=== PATIENT | male | born 1955 | race Two or more races ===

== ENCOUNTER 2016-07-21 13:25 | Inpatient (IN) | payer OTHER ==
[~2016-07-21] VITALS: Ht 172.7 cm; Wt 90.7 kg
[2016-07-21 13:26] VITALS: BP 152/94
[2016-07-21] MEDS ORDERED: LORazepam Inj 2mg/ml 1ml IV ONE (13:30)
[2016-07-21 13:53] LABS: MEAN CORPUSCULAR HEMOGLOBIN 31.2 PG (27.0-31.0); MEAN CORPUSCULAR HGB CONC 34.3 G/DL (32.0-36.0); MEAN CORPUSCULAR VOLUME 91 FL (80-99); MEAN PLATELET VOLUME 13.8 FL (6.5-10.1); PLATELET COUNT 85 K/UL (150-450); RED BLOOD COUNT 4.58 M/UL (4.70-6.10); RED CELL DISTRIBUTION WIDTH 11.1 % (11.6-14.8); WHITE BLOOD COUNT 7.5 K/UL (4.8-10.8)
[2016-07-21 14:06] LABS: INR 1.1 (0.9-1.1); PROTHROMBIN TIME 11.1 SEC (9.30-11.50)
[2016-07-21 14:10] LABS: TROPONIN I < 0.30 ng/mL (<=0.30)
[2016-07-21 14:13] LABS: ALANINE AMINOTRANSFERASE 47 U/L (3-41); ALBUMIN/GLOBULIN RATIO 1.1 (1.0-2.7); ANION GAP 18 (5-15); ASPARTATE AMINO TRANSFERASE 54 U/L (5-40); CARBON DIOXIDE 27 mEQ/L (20-30); CHLORIDE 95 mEQ/L (98-107); CREATININE 1.5 mg/dL (0.7-1.2); GLOMERULAR FILTRATION RATE 47.4 mL/min (>60); HEMOLYSIS 5; MAGNESIUM 1.7 mg/dL (1.7-2.5); POTASSIUM 4.6 mEQ/L (3.4-4.9); SODIUM 140 mEQ/L (135-145); TOTAL PROTEIN 6.8 g/dL (6.6-8.7)
[2016-07-21 14:24] LABS: BAND NEUTROPHILS % (MANUAL) 6 % (0-8); BASOPHILS % (MANUAL) 0 % (0-2); CKMB < 1.5 ng/mL (< 6.7); EOSINOPHILS % (MANUAL) 0 % (0-3); LYMPHOCYTES % (MANUAL) 11 % (20-45); NEUTROPHILS % (MANUAL) 79 % (45-75); PLATELET ESTIMATE DECREASED; TOTAL CELLS COUNTED 100
[2016-07-21 14:25] LABS: REFLEX LACTIC ACID YES OR NO YES
[2016-07-21] MEDS ORDERED: Ampicillin/Sulbactam Sod 3 GM in NS 110 ML IVPB ONE (15:00)
[2016-07-21 15:19] VITALS: BP 143/69
[2016-07-21 15:26] LABS: APPEARANCE,URINE CLEAR; KETONES,URINE 2+ (NEGATIVE); LEUKOCYTE ESTERASE ,URINE NEGATIVE (NEGATIVE); NITRITE,URINE NEGATIVE (NEGATIVE); PH,URINE 5 (4.5-8.0); PROTEIN,URINE NEGATIVE (NEGATIVE); UROBILINOGEN,URINE NORMAL MG/DL (0.0-1.0)
--- NOTE | 2016-07-21 16:03 | Emergency Room Report ---
History of Present Illness General Chief Complaint: General Complaint Source: Patient Present Illness HPI Patient is a 60-year-old male presented after having increased fever and shakiness. The patient had gradual onset of symptoms over the past 2 days. Patient denied any cough. He reported having some low back pain. He reports having some difficulty with urination. Patient had prior history of diabetes which is not being treated currently. Patient previously been on psychiatric medications. He does not drink alcohol. Allergies: Coded Allergies: No Known Allergies (Unverified , 07/21/16) Patient History Past Medical History: see triage record, psych hx Reviewed Nursing Documentation: PMH: Agreed, PSxH: Agreed Nursing Documentation-PMH Past Medical History: No History, Except For Hx Diabetes: Yes Review of Systems All Other Systems: negative except mentioned in HPI Physical Exam Vital Signs Date Time Temp Pulse Resp B/P Pulse Ox O2 Delivery O2 Flow Rate FiO2 07/21/16 13:18 98.4 55 16 142/97 97 Room Air Sp02 EP Interpretation: reviewed, normal General Appearance: normal inspection, well appearing, no apparent distress, alert Head: atraumatic ENT: normal ENT inspection, hearing grossly normal, normal voice Neck: normal inspection, full range of motion, supple, no bony tend Respiratory: normal inspection, lungs clear, normal breath sounds, no respiratory distress, no retraction, no wheezing Cardiovascular #1: regular rate, rhythm, no edema Gastrointestinal: normal inspection, normal bowel sounds, non tender, soft, no guarding, no hernia Genitourinary: no CVA tenderness Musculoskeletal: normal inspection, back normal, normal range of motion Neurologic: normal inspection, alert, oriented x3, responsive, board setter III-XII nml as tested, speech normal, motor weakness, other - tremor, pill rolling Psychiatric: normal inspection, judgement/insight normal, mood/affect normal Skin: normal inspection, normal color, no rash Medical Decision Making Diagnostic Impression: Primary Impression: Severe sepsis Additional Impressions: Dehydration UTI (urinary tract infection) Uncontrolled diabetes mellitus ER Course The patient presented for generalized weakness as well as fever. Differential diagnoses included was not limited to pneumonia, abscess, urinary tract infection, appendicitis among others.Because of complexity of patient's case laboratory testing and imaging studies were ordered. The patient was noted to have elevated white blood count as well as elevated lactic acid level. Patient noted be febrile in the emergency department. Patient was given IV antibiotics. Patient was noted to have some improvement in tachycardia after IV fluids the EKG interpreted by me showed normal sinus rhythm with a rate of [address] or T wave changes. Dr. Jose Enrique Brown was contacted for inpatient management. Labs Test 07/21/16 13:30 07/21/16 15:00 White Blood Count 7.5 K/UL (4.8-10.8) Red Blood Count 4.58 M/UL (4.70-6.10) Hemoglobin 14.3 G/DL (14.2-18.0) Hematocrit 41.6 % (42.0-52.0) Mean Corpuscular Volume 91 FL (80-99) Mean Corpuscular Hemoglobin 31.2 PG (27.0-31.0) Mean Corpuscular Hemoglobin Concent 34.3 G/DL (32.0-36.0) Red Cell Distribution Width 11.1 % (11.6-14.8) Platelet Count 85 K/UL (150-450) Mean Platelet Volume 13.8 FL (6.5-10.1) Neutrophils (%) (Auto) % (45.0-75.0) Lymphocytes (%) (Auto) % (20.0-45.0) Monocytes (%) (Auto) % (1.0-10.0) Eosinophils (%) (Auto) % (0.0-3.0) Basophils (%) (Auto) % (0.0-2.0) Differential Total Cells Counted 100 Neutrophils % (Manual) 79 % (45-75) Lymphocytes % (Manual) 11 % (20-45) Monocytes % (Manual) 4 % (1-10) Eosinophils % (Manual) 0 % (0-3) Basophils % (Manual) 0 % (0-2) Band Neutrophils 6 % (0-8) Platelet Estimate Decreased Platelet Morphology Giant Platelets Occasional Red Blood Cell Morphology Normal Anisocytosis Prothrombin Time 11.1 SEC (9.30-11.50) Prothromb Time International Ratio 1.1 (0.9-1.1) Activated Partial Thromboplast Time 28 SEC (23-33) Sodium Level 140 mEQ/L (135-145) Potassium Level 4.6 mEQ/L (3.4-4.9) Chloride Level 95 mEQ/L (98-107) Carbon Dioxide Level 27 mEQ/L (20-30) Anion Gap 18 (5-15) Blood Urea Nitrogen 31 mg/dL (7-23) Creatinine 1.5 mg/dL (0.7-1.2) Estimat Glomerular Filtration Rate 47.4 mL/min (>60) Glucose Level 424 mg/dL (74-106) Lactic Acid Level 4.30 mmol/L (0.66-2.22) Calcium Level 9.0 mg/dL (8.6-10.2) Magnesium Level 1.7 mg/dL (1.7-2.5) Total Bilirubin 0.7 mg/dL (0.0-1.2) Aspartate Amino Transf (AST/SGOT) 54 U/L (5-40) Alanine Aminotransferase (ALT/SGPT) 47 U/L (3-41) Alkaline Phosphatase 60 U/L (40-129) Total Creatine Kinase 126 U/L (38-174) Creatine Kinase MB < 1.5 ng/mL (< 6.7) Creatine Kinase MB Relative Index 1.1 Troponin I < 0.30 ng/mL (<=0.30) Pro-B-Type Natriuretic Peptide 220 pg/mL (0-125) Total Protein 6.8 g/dL (6.6-8.7) Albumin 3.7 g/dL (3.5-5.2) Globulin 3.1 g/dL Albumin/Globulin Ratio 1.1 (1.0-2.7) Urine Color Pale yellow Urine Appearance Clear Urine pH 5 (4.5-8.0) Urine Specific [place] 1.020 (1.005-1.035) Urine Protein Negative (NEGATIVE) Urine Glucose (UA) 4+ (NEGATIVE) Urine Ketones 2+ (NEGATIVE) Urine Occult Blood Negative (NEGATIVE) Urine Nitrite Negative (NEGATIVE) Urine Bilirubin Negative (NEGATIVE) Urine Urobilinogen Normal MG/DL (0.0-1.0) Urine Leukocyte Esterase Negative (NEGATIVE) EKG Diagnostic Results Rate: normal - 78 Rhythm: NSR ST Segments: no acute changes Rhythm Strip Diag. Results EP Interpretation: yes Rhythm: NSR - 78, no PVC's, no ectopy Last Vital Signs Date Time Temp Pulse Resp B/P Pulse Ox O2 Delivery O2 Flow Rate FiO2 07/21/16 15:19 101.2 102 29 143/69 97 Room Air Status: unchanged Disposition: ADMITTED INPATIENT Condition: Serious Referrals: [facility],REFERRING (PCP) Juan Manuel Moore Jul 21, 2016 16:02
[2016-07-21] MEDS ORDERED: Unasyn 3gm Inj ONE (17:13)
[2016-07-21 18:10] VITALS: BP 144/70
[2016-07-21] MEDS ORDERED: NKM (19:25)
[2016-07-21] MEDS ORDERED: Morphine Sulfate 4mg/ml Inj IVP PRN (21:45)
[2016-07-21] MEDS ORDERED: Morphine Sulfate 2mg/ml Inj IVP PRN (21:45)
--- NOTE | 2016-07-21 21:53 | History & Physical ---
History and Physical History & Physicial H&P dictated # [id number] VIRGINIA MITCHELL M.D. Jul 21, 2016 21:53
[2016-07-21] MEDS ORDERED: Nitroglycerin Subl 0.4mg tab (Bottle Of 25) SL PRN (22:00)
[2016-07-21] MEDS ORDERED: Miralax 17gm pkt ORAL PRN (22:00)
[2016-07-21] MEDS ORDERED: DuoNeb 0.5-3(2.5)mg/3ml neb HHN PRN (22:00)
[2016-07-21 22:02] VITALS: BP 137/74
[2016-07-22] MEDS: Morphine Sulfate 2mg/ml Inj IVP PRN ×2 (00:20→14:37)
[2016-07-22] MEDS ORDERED: Vancomycin 1gm inj IVPB ONE (00:26)
[2016-07-22 00:27] VITALS: BP 144/77
[2016-07-22] MEDS: Vancomycin 1 GM in D5W 275 ML IVPB SCH (01:10)
--- NOTE | 2016-07-22 02:48 | History and Physical Report ---
DATE OF ADMISSION: 07/21/2016 HISTORY OF PRESENT ILLNESS: This is a 60-year-old male with history of diabetes, who was not on any medications for one year, who was brought in by ambulance for tremors and fevers. The patient had a fever of 102. Blood sugar en route was 336. Upon arrival, he had a fever of 101.2. He states he has not been feeling well since yesterday. He has had chills and fevers. He also had a fall on his hands and complains of hand pain. He complains of weakness and fatigue. He also reports a cough, but denies shortness of breath. He denies chest pain. PAST MEDICAL HISTORY: Includes diabetes. PAST SURGICAL HISTORY: None. MEDICATIONS: The patient is not taking any medications. ALLERGIES: No known drug allergies. SOCIAL HISTORY: The patient does not smoke, drink alcohol, or use any drugs. He is for disability. REVIEW OF SYSTEMS: A 12-point review of systems is negative except for pertinent positives mentioned above. PHYSICAL EXAMINATION: VITAL SIGNS: Temperature 98.4, pulse is 55, respiratory rate 16, blood pressure 142/97, and O2 saturation is 97% on room air. GENERAL: No acute distress. The patient is awake, alert, and oriented x3. He is [place]an-speaking. HEENT: Normocephalic/atraumatic. Mouth, the patient has dry oral mucous membranes. NECK: Supple. No JVD. LUNGS: Clear to auscultation bilaterally. No crackles, rhonchi, or rales. CARDIOVASCULAR: Regular rate and rhythm. Normal S1 and S2. ABDOMEN: Soft, nontender, and nondistended. EXTREMITIES: No clubbing, cyanosis, or edema. There are dark skin lesions over his legs likely from diabetes. SKIN: The patient has skin lesions over his legs likely ; however, there are no other rashes. NEUROLOGIC: The patient is awake and can move all extremities. LABORATORY DATA: CBC - white count 7.5, hemoglobin 14.3, and platelet count 85,000. BMP - sodium 140, potassium 4.6, chloride 95, CO2 27, BUN 31, and creatinine 1.5. Lactic acid 4.3. Glucose 424. LFTs are within normal limits. Albumin 2.7. UA is negative. Chest x-ray shows no clear infiltrate. EKG shows normal sinus rhythm at 78. No PVCs. No ectopy. No ST changes. ASSESSMENT: 1. Upper respiratory infection - likely viral. 2. Uncontrolled diabetes without diabetic ketoacidosis. 3. Acute versus chronic kidney disease. 4. Thrombocytopenia. PLAN: 1. Admit the patient to Med/Surg unit. 2. Pulmonary consult with Dr. Obrien. 3. Intravenous fluids. 4. Check for flu. 5. Avoid nephrotoxic agents. 6. Regular insulin sliding scale. Jose Enrique Brown MD DR: CIARA JOB#: [id number] CC:
[2016-07-22 04:14] VITALS: BP 144/73
[2016-07-22] MEDS: NovoLOG Insulin Flexpen SUBQ SCH ×4 (05:50→20:23)
[2016-07-22] MEDS ORDERED: NovoLOG Insulin Flexpen SUBQ SCH (06:30)
[2016-07-22 07:13] LABS: MEAN CORPUSCULAR HEMOGLOBIN 31.8 PG (27.0-31.0); MEAN CORPUSCULAR VOLUME 91 FL (80-99); MEAN PLATELET VOLUME 13.5 FL (6.5-10.1); PLATELET COUNT 65 K/UL (150-450); RED BLOOD COUNT 4.01 M/UL (4.70-6.10); RED CELL DISTRIBUTION WIDTH 11.1 % (11.6-14.8); WHITE BLOOD COUNT 7.1 K/UL (4.8-10.8)
[2016-07-22 08:00] VITALS: BP 116/63
[2016-07-22 08:01] LABS: ALANINE AMINOTRANSFERASE 36 U/L (3-41); ALBUMIN/GLOBULIN RATIO 1.1 (1.0-2.7); ANION GAP 17 (5-15); ASPARTATE AMINO TRANSFERASE 42 U/L (5-40); CALCIUM 8.2 mg/dL (8.6-10.2); CARBON DIOXIDE 23 mEQ/L (20-30); CHLORIDE 98 mEQ/L (98-107); CREATININE 1.2 mg/dL (0.7-1.2); GLOMERULAR FILTRATION RATE > 60 mL/min (>60); HEMOLYSIS 7; MAGNESIUM 1.4 mg/dL (1.7-2.5); PHOSPHORUS 1.9 mg/dL (2.5-4.8); POTASSIUM 3.9 mEQ/L (3.4-4.9); SODIUM 138 mEQ/L (135-145); TOTAL PROTEIN 5.9 g/dL (6.6-8.7); URIC ACID 7.8 mg/dL (3.0-7.5)
[2016-07-22] MEDS ORDERED: Heparin 5000 units/ml inj SUBQ SCH ×2 (09:00)
[2016-07-22] MEDS: Cefepime HCl 2 GM in D5W 110 ML IV SCH ×2 (09:32→20:15)
[2016-07-22 09:35] LABS: APPEARANCE,URINE CLEAR; KETONES,URINE 3+ (NEGATIVE); LEUKOCYTE ESTERASE ,URINE NEGATIVE (NEGATIVE); NITRITE,URINE NEGATIVE (NEGATIVE); PH,URINE 6 (4.5-8.0); PROTEIN,URINE 1+ (NEGATIVE); UROBILINOGEN,URINE 1 MG/DL (0.0-1.0)
--- NOTE | 2016-07-22 09:40 | Diagnostic Imaging Report ---
Indication: SOB Technique: One view of the chest Comparison: none Findings: Lungs and pleural spaces are clear. Heart size is normal Impression: No acute process
[2016-07-22 10:17] LABS: BACTERIA,URINE OCCASIONAL /HPF; SQUAMOUS EPITHELIAL CELL,UR OCCASIONAL /LPF (NONE/OCC); WBC,URINE 0-2 /HPF (0 - 0)
[2016-07-22 10:39] LABS: BAND NEUTROPHILS % (MANUAL) 6 % (0-8); LYMPHOCYTES % (MANUAL) 8 % (20-45); NEUTROPHILS % (MANUAL) 82 % (45-75); TOTAL CELLS COUNTED 100
[2016-07-22 10:40] LABS: BASOPHILS % (MANUAL) 0 % (0-2); EOSINOPHILS % (MANUAL) 0 % (0-3); PLATELET ESTIMATE DECREASED; PLATELET MORPHOLOGY NORMAL
--- NOTE | 2016-07-22 11:19 | General Progress Note ---
Assessment/Plan Status: stable Assessment/Plan 1. Upper respiratory infection - likely viral. 2. Uncontrolled diabetes without diabetic ketoacidosis. 3. Acute versus chronic kidney disease. 4. Thrombocytopenia. 5. Acute Anemia 6. GI-DVT prophylaxia Plan: stool occult blood Hem consult Endo consult daily labs change of Attending to Dr Hartley, Per Dr Cosme request Subjective ROS Limited/Unobtainable: No Constitutional: Reports: no symptoms HEENT: Reports: no symptoms Cardiovascular: Reports: no symptoms Respiratory: Reports: no symptoms Allergies: Coded Allergies: No Known Allergies (Unverified , 07/21/16) Objective Last 24 Hour Vital Signs Date Time Temp Pulse Resp B/P Pulse Ox O2 Delivery O2 Flow Rate FiO2 07/22/16 08:00 75 07/22/16 08:00 98.2 75 19 116/63 95 Room Air 07/22/16 04:31 100.3 07/22/16 04:14 103.6 90 22 144/73 98 Room Air 07/22/16 04:00 93 07/22/16 00:27 99.5 70 20 144/77 95 Room Air 07/22/16 00:00 76 07/21/16 22:09 99.6 84 15 137/74 97 Room Air 07/21/16 22:02 99.6 84 15 137/74 97 Room Air 07/21/16 18:10 99.8 81 16 144/70 95 Room Air 07/21/16 15:19 101.2 102 29 143/69 97 Room Air 07/21/16 13:26 98.4 84 20 152/94 97 Room Air 07/21/16 13:18 98.4 55 16 142/97 97 Room Air Intake and Output 07/21/16 07/22/16 19:00 07:00 Intake Total 2230 ml 366.6 ml Output Total 2300 ml Balance 2230 ml -1933.4 ml Intake Oral 120 ml IV Total 2110 ml 366.6 ml Output Urine Total 2300 ml # Voids 1 Laboratory Tests 07/21/16 13:30: White Blood Count 7.5, Red Blood Count 4.58L, Hemoglobin 14.3, Hematocrit 41.6L , Mean Corpuscular Volume 91, Mean Corpuscular Hemoglobin 31.2H, Mean Corpuscular Hemoglobin Concent 34.3, Red Cell Distribution Width 11.1L, Platelet Count 85L, Mean Platelet Volume 13.8H, Neutrophils (%) (Auto) , Lymphocytes (%) (Auto) , Monocytes (%) (Auto) , Eosinophils (%) (Auto) , Basophils (%) (Auto) , Differential Total Cells Counted 100, Neutrophils % ( Manual) 79H, Lymphocytes % (Manual) 11L, Monocytes % (Manual) 4, Eosinophils % ( Manual) 0, Basophils % (Manual) 0, Band Neutrophils 6, Platelet Estimate DecreasedL, Platelet Morphology , Giant Platelets Occasional, Red Blood Cell Morphology Normal, Anisocytosis , Prothrombin Time 11.1, Prothromb Time International Ratio 1.1, Activated Partial Thromboplast Time 28, Sodium Level 140, Potassium Level 4.6, Chloride Level 95L, Carbon Dioxide Level 27, Anion Gap 18H, Blood Urea Nitrogen 31H, Creatinine 1.5H, Estimat Glomerular Filtration Rate 47.4, Glucose Level 424H, Hemoglobin A1c 13.3H, Lactic Acid Level 4.30H, Calcium Level 9.0, Magnesium Level 1.7, Total Bilirubin 0.7, Aspartate Amino Transf (AST/SGOT) 54H, Alanine Aminotransferase (ALT/SGPT) 47H, Alkaline Phosphatase 60, Total Creatine Kinase 126, Creatine Kinase MB < 1.5, Creatine Kinase MB Relative Index 1.1, Troponin I < 0.30, Pro-B-Type Natriuretic Peptide 220H, Total Protein 6.8, Albumin 3.7, Globulin 3.1, Albumin/ Globulin Ratio 1.1 07/21/16 15:00: Urine Color Pale yellow, Urine Appearance Clear, Urine pH 5, Urine Specific [place] 1.020, Urine Protein Negative, Urine Glucose (UA) 4+H, Urine Ketones 2+H , Urine Occult Blood Negative, Urine Nitrite Negative, Urine Bilirubin Negative , Urine Urobilinogen Normal, Urine Leukocyte Esterase Negative 07/21/16 17:12: Lactic Acid Level 2.10 07/22/16 04:50: White Blood Count 7.1, Red Blood Count 4.01L, Hemoglobin 12.7L, Hematocrit 36.4L , Mean Corpuscular Volume 91, Mean Corpuscular Hemoglobin 31.8H, Mean Corpuscular Hemoglobin Concent 35.0, Red Cell Distribution Width 11.1L, Platelet Count 65L, Mean Platelet Volume 13.5H, Neutrophils (%) (Auto) , Lymphocytes (%) (Auto) , Monocytes (%) (Auto) , Eosinophils (%) (Auto) , Basophils (%) (Auto) , Differential Total Cells Counted 100, Neutrophils % ( Manual) 82H, Lymphocytes % (Manual) 8L, Monocytes % (Manual) 4, Eosinophils % ( Manual) 0, Basophils % (Manual) 0, Band Neutrophils 6, Platelet Estimate DecreasedL, Platelet Morphology Normal, Red Blood Cell Morphology Normal, Sodium Level 138, Potassium Level 3.9, Chloride Level 98, Carbon Dioxide Level 23, Anion Gap 17H, Blood Urea Nitrogen 25H, Creatinine 1.2, Estimat Glomerular Filtration Rate > 60, Glucose Level 318#H, Calcium Level 8.2L, Magnesium Level 1.4L, Total Bilirubin 0.8, Aspartate Amino Transf (AST/SGOT) 42H, Alanine Aminotransferase (ALT/SGPT) 36, Alkaline Phosphatase 73, Total Creatine Kinase 166, Total Protein 5.9L, Albumin 3.2L, Globulin 2.7, Albumin/Globulin Ratio 1.1 , Plasma/Serum Osmolality [Pending], Uric Acid 7.8H, Phosphorus Level 1.9L, Free Thyroxine 1.10 07/22/16 05:30: Urine Color Yellow, Urine Appearance Clear, Urine pH 6, Urine Specific [place] 1.015, Urine Protein 1+H, Urine Glucose (UA) 4+H, Urine Ketones 3+H, Urine Occult Blood 2+H, Urine Nitrite Negative, Urine Bilirubin Negative, Urine Urobilinogen 1H, Urine Leukocyte Esterase Negative, Urine RBC 2-4H, Urine WBC 0- 2, Urine Squamous Epithelial Cells Occasional, Urine Bacteria Occasional, Urine Eosinophils None seen, Urine Osmolality [Pending], Urine Random Sodium 100, Urine Random Chloride 102, Urine Potassium Timed 71 Height (Feet): 5 Height (Inches): 8.00 Weight (Pounds): 200 General Appearance: no apparent distress EENT: PERRL/EOMI Neck: supple Cardiovascular: normal rate Respiratory/Chest: rhonchi - bilaterally Abdomen: soft Extremities: non-tender Neurologic: oriented x 3 Nolvia Hartley MD Jul 22, 2016 11:19
[2016-07-22 11:54] LABS: HEMOLYSIS 5; IRON 16 ug/dL (59-158); TOTAL IRON BINDING CAPACITY 165 ug/dL (250-400)
[2016-07-22 12:00] VITALS: BP 136/75
--- NOTE | 2016-07-22 15:42 | Consultation ---
History of Present Illness General Date patient seen: Jul 22, 2016 Chief Complaint: General Complaint Reason for Consultation: dyspnea Present Illness HPI 60-year-old male presented after having increased fever and shakiness. He reported having some low back pain. He also had some difficulty with urination. Patient had prior history of diabetes which is not being treated currently. Patient previously been on psychiatric medications. He was diagnosed to have sepsis and uncontrolled DM and admitted for further evaluation. Allergies: Coded Allergies: No Known Allergies (Unverified , 07/21/16) Medication History Scheduled No Known Medications* (NKM - No Known Medications*), 0 ., (Reported) Patient History Healthcare decision maker pt alert and oriented Resuscitation status Full Code Advanced Directive on File Past Medical/Surgical History Past Medical/Surgical History: (1) Diabetes mellitus Review of Systems All Other Systems: negative except mentioned in HPI Physical Exam General Appearance: WD/WN Lines, tubes and drains: peripheral, central line, trach HEENT: normocephalic, atraumatic Neck: non-tender, normal alignment Respiratory/Chest: chest wall non-tender, lungs clear Cardiovascular/Chest: normal peripheral pulses, normal rate Abdomen: normal bowel sounds, soft Last 24 Hour Vital Signs Date Time Temp Pulse Resp B/P Pulse Ox O2 Delivery O2 Flow Rate FiO2 07/22/16 12:00 68 07/22/16 12:00 98.1 71 20 136/75 98 Room Air 07/22/16 08:00 75 07/22/16 08:00 98.2 75 19 116/63 95 Room Air 07/22/16 04:31 100.3 07/22/16 04:14 103.6 90 22 144/73 98 Room Air 07/22/16 04:00 93 07/22/16 00:27 99.5 70 20 144/77 95 Room Air 07/22/16 00:00 76 07/21/16 22:09 99.6 84 15 137/74 97 Room Air 07/21/16 22:02 99.6 84 15 137/74 97 Room Air 07/21/16 18:10 99.8 81 16 144/70 95 Room Air Intake and Output 07/21/16 07/22/16 19:00 07:00 Intake Total 2230 ml 366.6 ml Output Total 2300 ml Balance 2230 ml -1933.4 ml Intake Oral 120 ml IV Total 2110 ml 366.6 ml Output Urine Total 2300 ml # Voids 1 Laboratory Tests Test 07/21/16 17:12 07/22/16 04:50 07/22/16 05:30 Lactic Acid Level 2.10 mmol/L (0.66-2.22) White Blood Count 7.1 K/UL (4.8-10.8) Red Blood Count 4.01 M/UL (4.70-6.10) L Hemoglobin 12.7 G/DL (14.2-18.0) L Hematocrit 36.4 % (42.0-52.0) L Mean Corpuscular Volume 91 FL (80-99) Mean Corpuscular Hemoglobin 31.8 PG (27.0-31.0) H Mean Corpuscular Hemoglobin Concent 35.0 G/DL (32.0-36.0) Red Cell Distribution Width 11.1 % (11.6-14.8) L Platelet Count 65 K/UL (150-450) L Mean Platelet Volume 13.5 FL (6.5-10.1) H Neutrophils (%) (Auto) % (45.0-75.0) Lymphocytes (%) (Auto) % (20.0-45.0) Monocytes (%) (Auto) % (1.0-10.0) Eosinophils (%) (Auto) % (0.0-3.0) Basophils (%) (Auto) % (0.0-2.0) Differential Total Cells Counted 100 Neutrophils % (Manual) 82 % (45-75) H Lymphocytes % (Manual) 8 % (20-45) L Monocytes % (Manual) 4 % (1-10) Eosinophils % (Manual) 0 % (0-3) Basophils % (Manual) 0 % (0-2) Band Neutrophils 6 % (0-8) Platelet Estimate Decreased L Platelet Morphology Normal Red Blood Cell Morphology Normal Sodium Level 138 mEQ/L (135-145) Potassium Level 3.9 mEQ/L (3.4-4.9) Chloride Level 98 mEQ/L (98-107) Carbon Dioxide Level 23 mEQ/L (20-30) Anion Gap 17 (5-15) H Blood Urea Nitrogen 25 mg/dL (7-23) H Creatinine 1.2 mg/dL (0.7-1.2) Estimat Glomerular Filtration Rate > 60 mL/min (>60) Glucose Level 318 mg/dL (74-106) #H Plasma/Serum Osmolality Pending Uric Acid 7.8 mg/dL (3.0-7.5) H Calcium Level 8.2 mg/dL (8.6-10.2) L Phosphorus Level 1.9 mg/dL (2.5-4.8) L Magnesium Level 1.4 mg/dL (1.7-2.5) L Iron Level 16 ug/dL (59-158) L Total Iron Binding Capacity 165 ug/dL (250-400) L Percent Iron Saturation 10 % (15-50) L Unsaturated Iron Binding 149 ug/dL (112-346) Total Bilirubin 0.8 mg/dL (0.0-1.2) Aspartate Amino Transf (AST/SGOT) 42 U/L (5-40) H Alanine Aminotransferase (ALT/SGPT) 36 U/L (3-41) Alkaline Phosphatase 73 U/L (40-129) Total Creatine Kinase 166 U/L (38-174) Total Protein 5.9 g/dL (6.6-8.7) L Albumin 3.2 g/dL (3.5-5.2) L Globulin 2.7 g/dL Albumin/Globulin Ratio 1.1 (1.0-2.7) Free Thyroxine 1.10 ng/dL (0.86-1.85) Urine Color Yellow Urine Appearance Clear Urine pH 6 (4.5-8.0) Urine Specific [place] 1.015 (1.005-1.035) Urine Protein 1+ (NEGATIVE) H Urine Glucose (UA) 4+ (NEGATIVE) H Urine Ketones 3+ (NEGATIVE) H Urine Occult Blood 2+ (NEGATIVE) H Urine Nitrite Negative (NEGATIVE) Urine Bilirubin Negative (NEGATIVE) Urine Urobilinogen 1 MG/DL (0.0-1.0) H Urine Leukocyte Esterase Negative (NEGATIVE) Urine RBC 2-4 /HPF (0 - 0) H Urine WBC 0-2 /HPF (0 - 0) Urine Squamous Epithelial Cells Occasional /LPF Urine Bacteria Occasional /HPF (NONE) Urine Eosinophils None seen Urine Osmolality Pending Urine Random Sodium 100 mmol/L Urine Random Chloride 102 mmol/L Urine Potassium Timed 71 mmol/L Microbiology Date/Time Source Procedure Growth Status 07/22/16 10:30 Nasal Nares Influenza Types A,B Antigen (BERTHA) - Final Complete Height (Feet): 5 Height (Inches): 8.00 Weight (Pounds): 200 Medications Current Medications Medications (Trade) Dose Ordered Sig/Antonio Route PRN Reason Start Time Stop Time Status Last Admin Dose Admin Acetaminophen (Tylenol) 650 mg Q4H PRN ORAL Mild Pain (Pain Scale 1-3) 07/21/16 21:45 08/20/16 21:44 Acetaminophen (Tylenol) 650 mg Q4H PRN ORAL fever 07/21/16 22:00 08/20/16 21:59 07/22/16 03:32 Albuterol/ Ipratropium 3 ml 3 ml Q4HRT PRN HHN Shortness of Breath 07/21/16 22:00 07/26/16 21:59 Cefepime HCl 2 gm/ Dextrose 110 ml @ 220 mls/hr EVERY 12 HOURS IV 07/22/16 09:00 07/29/16 08:59 07/22/16 09:32 Dextrose (Dextrose 50%) STAT PRN IV Hypoglycemia 07/21/16 21:45 08/20/16 21:44 Insulin Aspart (NovoLOG) BEFORE MEALS AND HS SUBQ 07/22/16 06:30 08/21/16 06:29 07/22/16 11:50 Insulin Detemir (Levemir) 10 units BEDTIME SUBQ 07/22/16 21:00 08/21/16 20:59 Morphine Sulfate (Morphine Sulfate) 2 mg Q4H PRN IVP Moderate Pain (Pain Scale 4-6) 07/21/16 22:00 07/28/16 21:59 07/22/16 14:37 Morphine Sulfate (Morphine Sulfate) 4 mg Q4HR PRN IVP Severe Pain (Pain Scale 7-10) 07/21/16 21:45 07/28/16 21:44 Nitroglycerin (Ntg) 0.4 mg q5min PRN SL Prn Chest Pain 07/21/16 22:00 08/20/16 21:59 Ondansetron HCl (Zofran) 4 mg Q6H PRN IVP Nausea & Vomiting 07/21/16 22:00 08/20/16 21:59 Polyethylene Glycol (Miralax) 17 gm DAILYPRN PRN ORAL Constipation 07/21/16 22:00 08/20/16 21:59 Temazepam (Restoril) 15 mg HSPRN PRN ORAL Insomnia 07/21/16 22:00 07/28/16 21:59 Vancomycin HCl/ Dextrose (Vancomycin/D5W) 275 ml @ 183.3 mls/ hr Q24H IVPB 07/22/16 00:00 07/27/16 00:00 07/22/16 01:10 Assessment/Plan Problem List: (1) Severe sepsis ICD Codes: A41.9 - Sepsis, unspecified organism; R65.20 - Severe sepsis without septic shock SNOMED: 20675959 (2) Dehydration ICD Codes: E86.0 - Dehydration; R65.20 - Severe sepsis without septic shock SNOMED: 37764384 (3) UTI (urinary tract infection) ICD Codes: N39.0 - Urinary tract infection, site not specified SNOMED: 07654784 (4) Uncontrolled diabetes mellitus ICD Codes: E11.65 - Type 2 diabetes mellitus with hyperglycemia SNOMED: 429311766 Assessment/Plan IV antibiotics IV hydration check electrolytes check cultures sliding scale diabetic diet. AZUCENA BUCK Jul 22, 2016 15:42
[2016-07-22 16:00] VITALS: BP 148/71
--- NOTE | 2016-07-22 17:16 | Diagnostic Imaging Report ---
Indication: Abnormal renal function to Technique: Grayscale and duplex images of the kidneys, retroperitoneum, and bladder were obtained. Comparison:None Findings: Right kidney measures 11 cm in length. Left kidney measures 12 cm in length. Both kidneys demonstrate normal echogenicity. No hydronephrosis. No focal abnormality. Normal inferior vena cava. Bladder is empty, contains a Orantes catheter. Impression: Negative for hydronephrosis Orantes catheter within empty bladder.
[2016-07-22 19:59] VITALS: BP 139/74
[2016-07-22] MEDS ORDERED: Levemir Flexpen SUBQ SCH (21:00)
--- NOTE | 2016-07-22 23:14 | Consultation ---
Consult Note Consult Note HEME CONSULT NOTE DATE OF CONSULT: 07/22/16 REASON FOR CONSULT: THROMBOCYTOPENIA REQUESTING MD: TERENCE HISTORY OF PRESENT ILLNESS: 60-year-old male with history of diabetes, who was not on any medications for one year, who was brought in by ambulance for tremors and fevers. The patient had a fever of 102. Blood sugar en route was 336. Upon arrival, he had a fever of 101.2. He states he has not been feeling well since yesterday. He has had chills and fevers. He also had a fall on his hands and complains of hand pain. He complains of weakness and fatigue. He also reports a cough, but denies shortness of breath. He denies chest pain. He had a plt count of 52k, no prior hx of thrombocytopenia, is new onset, no hx of liver disease per patient, no hepatitis, will need further eval PAST MEDICAL HISTORY: Diabetes. PAST SURGICAL HISTORY: None. MEDICATIONS: The patient is not taking any medications. ALLERGIES: No known drug allergies. SOCIAL HISTORY: The patient does not smoke, drink alcohol, or use any drugs. REVIEW OF SYSTEMS: Constitutional: No fever, chills, or night sweats. Skin: No rashes, lumps , or itching. HEENT: No headache or vision changes. Breasts: No lumps , pain, or discharge. Pulmonary: No cough, sputum, or shortness of breath. Cardiovascular: No chest pain, tightness, or palpitations. Gastrointestinal: The patient with abdominal pain, some nausea, and vomiting. Genitourinary: No dysuria, frequency, or urgency. Musculoskeletal: No joint swelling, muscle pain, or trauma. Neurological: No dizziness, fainting, or seizures. PHYSICAL EXAMINATION: VITAL SIGNS: Vital reviwed in cprs GENERAL: No acute distress. The patient is awake, alert, and oriented x3. He is Occitan-speaking. HEENT: Normocephalic/atraumatic. Mouth, the patient has dry oral mucous membranes. NECK: Supple. No JVD. LUNGS: Clear to auscultation bilaterally. No crackles, rhonchi, or rales. CARDIOVASCULAR: Regular rate and rhythm. Normal S1 and S2. ABDOMEN: Soft, nontender, and nondistended. EXTREMITIES: No clubbing, cyanosis, or edema. There are dark skin lesions over his legs likely from diabetes. SKIN: The patient has skin lesions over his legs likely, however, there are no other rashes. NEUROLOGIC: The patient is awake and can move all extremities. LABORATORY DATA: CBC - white count 7.5, hemoglobin 14.3, and platelet count 85,000. BMP - sodium 140, potassium 4.6, chloride 95, CO2 27, BUN 31, and creatinine 1.5. Lactic acid 4.3. Glucose 424. LFTs are within normal limits. ASSESSMENT: 1. Thrombocytopenia - patient's baseline is unknown, will need to further evaluate with coag, us abdomen, hepatitis, hiv and medication review, monitor closely for dic and consumption from sepsis 2. Anemia 2/2 chronic disease 3. Upper respiratory infection - likely viral. 4. Uncontrolled diabetes without diabetic ketoacidosis. sugars initially in the 300s 5. Acute versus chronic kidney disease. PLAN: 1. Monitor counts 2. Plt goal >20k 3. Ordered hepatitis and HIV panel, peripheral smear pending 4. US abdomen reviewed to r/o cirrhosis and splenomegaly 5. Coags ordered 6. DIC panel ordered 7. Medcations to be reviewed 8. Thank you for consult! Michele Brewer Jul 22, 2016 23:14
[2016-07-23] VITALS: BP 133/78
[2016-07-23] MEDS: Vancomycin 1 GM in D5W 275 ML IVPB SCH (00:15)
[2016-07-23 04:07] VITALS: BP 139/78
--- NOTE | 2016-07-23 06:01 | Consultation ---
Consult Note Consult Note ID Dic # [id number] NNEKA WHALEY M.D. Jul 23, 2016 06:01
[2016-07-23] MEDS: NovoLOG Insulin Flexpen SUBQ SCH ×6 (06:30→20:29)
[2016-07-23 08:08] VITALS: BP 146/79
[2016-07-23 08:18] LABS: MEAN CORPUSCULAR HEMOGLOBIN 31.3 PG (27.0-31.0); MEAN CORPUSCULAR VOLUME 89 FL (80-99); MEAN PLATELET VOLUME 14.5 FL (6.5-10.1); PLATELET COUNT 62 K/UL (150-450); RED BLOOD COUNT 3.88 M/UL (4.70-6.10); RED CELL DISTRIBUTION WIDTH 10.8 % (11.6-14.8); WHITE BLOOD COUNT 8.4 K/UL (4.8-10.8)
[2016-07-23 08:37] LABS: ALANINE AMINOTRANSFERASE 42 U/L (3-41); ANION GAP 16 (5-15); ASPARTATE AMINO TRANSFERASE 55 U/L (5-40); CALCIUM 8.5 mg/dL (8.6-10.2); CARBON DIOXIDE 24 mEQ/L (20-30); CHLORIDE 98 mEQ/L (98-107); CREATININE 0.9 mg/dL (0.7-1.2); GLOMERULAR FILTRATION RATE > 60 mL/min (>60); HEMOLYSIS 3; POTASSIUM 3.8 mEQ/L (3.4-4.9); SODIUM 138 mEQ/L (135-145); TOTAL PROTEIN 5.8 g/dL (6.6-8.7)
[2016-07-23] MEDS: Cefepime HCl 2 GM in D5W 110 ML IV SCH ×2 (08:40→20:22)
[2016-07-23] MEDS: Levemir Flexpen SUBQ SCH ×2 (08:43→20:30)
[2016-07-23 08:48] LABS: FERRITIN 978 ng/mL (10-230)
[2016-07-23 09:01] LABS: BILIRUBIN,DIRECT 0.3 mg/dL (0.1-0.3)
--- NOTE | 2016-07-23 09:39 | General Progress Note ---
Assessment/Plan Assessment/Plan ASSESSMENT: 1. Thrombocytopenia - patient's baseline is unknown, will need to further evaluate with coag, us abdomen, hepatitis, hiv and medication review, likely related to sepsis, though do not have a baseline for him. Could also be ITP, pending hepatitis and HIV panels 2. Anemia 2/2 chronic disease, hgb is approx 12 3. Upper respiratory infection - likely viral. 4. Uncontrolled diabetes without diabetic ketoacidosis. sugars initially in the 300s 5. Acute versus chronic kidney disease. PLAN: 1. Monitor counts 2. Plt goal >20k 3. Followup on hepatitis and HIV panel, peripheral smear pending 4. US abdomen reviewed to r/o cirrhosis and splenomegaly 5. Coags are within normal limits 6. DIC panel ordered 7. Mediations be reviewed 8. Thank you for consult! Subjective Constitutional: Reports: no symptoms HEENT: Reports: no symptoms Cardiovascular: Reports: no symptoms Respiratory: Reports: no symptoms Gastrointestinal/Abdominal: Reports: poor fluid intake Genitourinary: Reports: no symptoms 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: Reports: no symptoms Endocrine: Reports: no symptoms Hematologic/Lymphatic: Reports: anemia Allergies: Coded Allergies: No Known Allergies (Unverified , 07/21/16) Subjective stable, no events overnight, no fevers or chills, in bed, without complaints Objective Last 24 Hour Vital Signs Date Time Temp Pulse Resp B/P Pulse Ox O2 Delivery O2 Flow Rate FiO2 07/23/16 08:08 100.6 75 18 146/79 96 Room Air 07/23/16 08:00 73 07/23/16 04:07 99.0 69 20 139/78 95 Room Air 07/23/16 04:00 69 07/23/16 02:24 65 07/23/16 00:00 97.0 69 20 133/78 96 Room Air 07/22/16 21:12 99.0 07/22/16 20:00 67 07/22/16 19:59 101.7 82 18 139/74 94 Room Air 07/22/16 16:00 67 07/22/16 16:00 98.1 90 20 148/71 94 Room Air 07/22/16 12:00 68 07/22/16 12:00 98.1 71 20 136/75 98 Room Air Intake and Output 07/22/16 07/23/16 19:00 07:00 Intake Total 900 ml 736.6 ml Output Total 700 ml 250 ml Balance 200 ml 486.6 ml Intake Oral 680 ml 150 ml IV Total 220 ml 586.6 ml Output Urine Total 700 ml 250 ml # Bowel Movements 1 Laboratory Tests 07/23/16 07:45: White Blood Count 8.4, Red Blood Count 3.88L, Hemoglobin 12.2L, Hematocrit 34.7L , Mean Corpuscular Volume 89, Mean Corpuscular Hemoglobin 31.3H, Mean Corpuscular Hemoglobin Concent 35.0, Red Cell Distribution Width 10.8L, Platelet Count 62L, Mean Platelet Volume 14.5H, Neutrophils (%) (Auto) , Lymphocytes (%) (Auto) , Monocytes (%) (Auto) , Eosinophils (%) (Auto) , Basophils (%) (Auto) , Neutrophils % (Manual) [Pending], Lymphocytes % (Manual) [Pending], Platelet Estimate [Pending], Platelet Morphology [Pending], Reticulocyte Count [Pending], Haptoglobin 185, Fibrinogen 455H, Sodium Level 138 , Potassium Level 3.8, Chloride Level 98, Carbon Dioxide Level 24, Anion Gap 16H , Blood Urea Nitrogen 21, Creatinine 0.9, Estimat Glomerular Filtration Rate > 60, Glucose Level 211#H, Calcium Level 8.5L, Ferritin 978H, Total Bilirubin 1.1 , Direct Bilirubin 0.3, Aspartate Amino Transf (AST/SGOT) 55H, Alanine Aminotransferase (ALT/SGPT) 42H, Alkaline Phosphatase 56, Total Protein 5.8L, Albumin 3.0L, Globulin 2.8, Albumin/Globulin Ratio 1.0, Vitamin B12 Level 369, Folate [Pending], Hepatitis A IgM Antibody [Pending], Hepatitis B Surface Antigen [Pending], Hepatitis B Core IgM Antibody [Pending], Hepatitis C Antibody [Pending], HIV (1&2) Antibody Rapid Negative Height (Feet): 5 Height (Inches): 8.00 Weight (Pounds): 200 General Appearance: alert EENT: TMs normal Neck: supple Cardiovascular: regular rhythm Respiratory/Chest: normal breath sounds Abdomen: no organomegaly Extremities: non-tender Edema: 1+ Leg (L), 1+ Leg (R) Edema: mild edema Neurologic: alert Skin: warm/dry Michele Brewer Jul 23, 2016 09:39
[2016-07-23 10:06] LABS: BAND NEUTROPHILS % (MANUAL) 4 % (0-8); BASOPHILS % (MANUAL) 0 % (0-2); EOSINOPHILS % (MANUAL) 0 % (0-3); LYMPHOCYTES % (MANUAL) 19 % (20-45); NEUTROPHILS % (MANUAL) 71 % (45-75); PLATELET ESTIMATE DECREASED; PLATELET MORPHOLOGY NORMAL; TOTAL CELLS COUNTED 100
[2016-07-23 10:36] LABS: PATH BLOOD SMEAR/OMC SENT TO PATHOLOGIST; RETICULOCYTE COUNT 0.8 % (0.0-2.0)
--- NOTE | 2016-07-23 11:00 | General Progress Note ---
Assessment/Plan Status: stable Assessment/Plan 1. Upper respiratory infection - likely viral. 2. Uncontrolled diabetes without diabetic ketoacidosis. 3. Acute versus chronic kidney disease. 4. Thrombocytopenia. 5. Acute Anemia 6. GI-DVT prophylaxia Plan: Hem consult Endo consult were Reviewed current management Subjective ROS Limited/Unobtainable: No HEENT: Reports: no symptoms Cardiovascular: Reports: no symptoms Allergies: Coded Allergies: No Known Allergies (Unverified , 07/21/16) Objective Last 24 Hour Vital Signs Date Time Temp Pulse Resp B/P Pulse Ox O2 Delivery O2 Flow Rate FiO2 07/23/16 08:08 100.6 75 18 146/79 96 Room Air 07/23/16 08:00 73 07/23/16 04:07 99.0 69 20 139/78 95 Room Air 07/23/16 04:00 69 07/23/16 02:24 65 07/23/16 00:00 97.0 69 20 133/78 96 Room Air 07/22/16 21:12 99.0 07/22/16 20:00 67 07/22/16 19:59 101.7 82 18 139/74 94 Room Air 07/22/16 16:00 67 07/22/16 16:00 98.1 90 20 148/71 94 Room Air 07/22/16 12:00 68 07/22/16 12:00 98.1 71 20 136/75 98 Room Air Intake and Output 07/22/16 07/23/16 19:00 07:00 Intake Total 900 ml 736.6 ml Output Total 700 ml 250 ml Balance 200 ml 486.6 ml Intake Oral 680 ml 150 ml IV Total 220 ml 586.6 ml Output Urine Total 700 ml 250 ml # Bowel Movements 1 Laboratory Tests 07/23/16 07:45: White Blood Count 8.4, Red Blood Count 3.88L, Hemoglobin 12.2L, Hematocrit 34.7L , Mean Corpuscular Volume 89, Mean Corpuscular Hemoglobin 31.3H, Mean Corpuscular Hemoglobin Concent 35.0, Red Cell Distribution Width 10.8L, Platelet Count 62L, Mean Platelet Volume 14.5H, Neutrophils (%) (Auto) , Lymphocytes (%) (Auto) , Monocytes (%) (Auto) , Eosinophils (%) (Auto) , Basophils (%) (Auto) , Differential Total Cells Counted 100, Neutrophils % ( Manual) 71, Lymphocytes % (Manual) 19L, Monocytes % (Manual) 6, Eosinophils % ( Manual) 0, Basophils % (Manual) 0, Band Neutrophils 4, Platelet Estimate DecreasedL, Platelet Morphology Normal, Red Blood Cell Morphology Normal, Reticulocyte Count 0.8, Haptoglobin 185, Fibrinogen 455H, Sodium Level 138, Potassium Level 3.8, Chloride Level 98, Carbon Dioxide Level 24, Anion Gap 16H, Blood Urea Nitrogen 21, Creatinine 0.9, Estimat Glomerular Filtration Rate > 60 , Glucose Level 211#H, Calcium Level 8.5L, Ferritin 978H, Total Bilirubin 1.1, Direct Bilirubin 0.3, Aspartate Amino Transf (AST/SGOT) 55H, Alanine Aminotransferase (ALT/SGPT) 42H, Alkaline Phosphatase 56, Total Protein 5.8L, Albumin 3.0L, Globulin 2.8, Albumin/Globulin Ratio 1.0, Vitamin B12 Level 369, Folate [Pending], Hepatitis A IgM Antibody [Pending], Hepatitis B Surface Antigen [Pending], Hepatitis B Core IgM Antibody [Pending], Hepatitis C Antibody [Pending], HIV (1&2) Antibody Rapid Negative Height (Feet): 5 Height (Inches): 8.00 Weight (Pounds): 200 General Appearance: no apparent distress EENT: PERRL/EOMI Neck: supple Cardiovascular: normal rate Respiratory/Chest: lungs clear Abdomen: soft Extremities: non-tender 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
--- NOTE | 2016-07-23 12:07 | Diagnostic Imaging Report ---
Indications: Abdominal pain, fevers and chills, weakness and fatigue Technique: Continuous helical CT imaging of the abdomen and pelvis was performed with automatic exposure control following administration of oral and intravenous nonionic iodine contrast, on a Siemens sensation [address] scanner. Axial, coronal, and sagittal images were reconstructed at 5 mm slice thickness. CTDI volume(s): 18 mGy Total DLP: 1030 mGy-cm Findings: Comparison: None Oral contrast has passed throughout the gastrointestinal tract to the level of the colonic hepatic flexure. The appendix is mildly prominent, measuring 8 mm maximal diameter. It contains a 6 mm nodular calcification in the lumen of its tip. It demonstrates apparent mild mural thickening and mild adjacent stranding. No associated extraluminal gas or fluid collections are demonstrated. Remainder of tract nondilated. No additional mural thickening or adjacent stranding. Liver parenchyma mildly, diffusely decreased attenuation. Small nodular calcification in right lobe. Subcentimeter circumscribed focus of heterogeneously decreased attenuation in segment 3 adjacent to left intersegmental fissure not further characterizable. Mild stranding adjacent to both kidneys. Scattered arterial mural calcifications without obvious flow-limiting stenosis or occlusion. Gas and Orantes catheter in urinary bladder lumen. Remainder visualized abdominopelvic anatomy demonstrates no other obvious acute abnormality. Subsegmental parenchymal consolidation and volume loss in the dependent portions both lung bases. Adjacent small bibasal pleural effusions. Disc space narrowing with marginal osteophyte formation lower thoracic, lower lumbar spine. IMPRESSION: Findings suggestive of mild appendicitis. Attempts are being made to contact requesting physician by telephone at time of this dictation in order to relate findings. No other evidence of acute abdominopelvic disease Hepatic steatosis and old granulomatous disease Nonspecific low-attenuation lesion left hepatic lobe. Ultrasound correlation recommended. Mild bilateral perinephric stranding, nonspecific. Correlate with renal function. Arteriosclerosis Gas and urinary bladder lumen likely secondary to presence of Orantes catheter. Cystitis with gas-forming organism not excludable. Correlate clinically. Pulmonary bibasal subsegmental atelectasis Small bibasal pleural effusions, nonspecific Degenerative spondylosis
[2016-07-23 12:12] VITALS: BP 148/81
--- NOTE | 2016-07-23 12:19 | Consultation ---
DATE OF CONSULTATION: CONSULTING PHYSICIAN: Yuri Verma M.D. REFERRING PHYSICIAN: Nolvia Hartley M.D. REASON FOR CONSULTATION: Evaluation of the patient for fever, possible sepsis, and antibiotic management. HISTORY OF PRESENT ILLNESS: The patient is a 60-year-old male with multiple medical problems as listed above, who was admitted to this medical center with fever and chills. The patient was found to have fever of 103, however, the patient does not have any pain, shortness of breath, cough, runny nose, sore throat, nausea or vomiting. Infectious Disease consultation has been requested for further evaluation of the patient and antibiotic management. PAST MEDICAL HISTORY: Diabetes. PAST SURGICAL HISTORY: None. MEDICATIONS: Cefepime and vancomycin. ALLERGIES: No known drug allergies. SOCIAL HISTORY: Negative for alcohol, drug abuse, or smoking. REVIEW OF SYSTEMS: HEENT: No recent change in vision or hearing. Pulmonary: No cough or shortness of breath. Cardiovascular: No chest pain or palpitation. Gastrointestinal: No nausea or vomiting. Genitourinary: No dysuria. Musculoskeletal: No pain in extremity. PHYSICAL EXAMINATION: VITAL SIGNS: Temperature 97, blood pressure 133/78, pulse 76, respiratory rate 18, and T-max 103.6. HEENT: Mild pale conjunctivae. No icterus. NECK: No lymphadenopathy. CHEST: Coarse breathing sounds. HEART: S1 and S2. ABDOMEN: Soft, obese, and nontender. EXTREMITIES: No cyanosis . NEUROLOGIC: Awake. LABORATORY AND DIAGNOSTIC DATA: White blood cells 7, hemoglobin 12, and platelets 65,000. UA is unremarkable. BUN 25 and creatinine 1.2. ALT, AST, and alkaline phosphatase unremarkable. Rapid influenza test is negative. Blood culture is growing gram-negative rods, 2/2. Ultrasound of the kidneys negative for hydronephrosis. Chest x-ray, no acute process. ASSESSMENT: The patient is a 60-year-old male with multiple medical problems as listed above, who has been admitted to this medical center due to chills. Urine culture is growing gram-negative rods. The patient's UA is unremarkable. Doubt the UA gram-negative rods. Doubt the UTI as the patient's source of infection has been possible intra-abdominal sepsis and abscess. PLAN: 1. We will continue the patient on IV cefepime and we hold IV vancomycin. 2. Monitor CBC. 3. Monitor BMP. 4. . 5. Monitor final blood culture. 6. CT of the abdomen with contrast. Based on the patient's clinical course and labs, we will do further recommendations. Thank you, Dr. Hartley, for allowing me to participate in the care of this patient. I will follow the patient with you during this hospitalization. Yuri Verma M.D. DR: LUIS FERNANDO JOB#: [id number] CC:
--- NOTE | 2016-07-23 14:59 | Consultation ---
DATE OF CONSULTATION: 07/23/2016 ENDOCRINOLOGY CONSULTATION CONSULTING PHYSICIAN: Stewart Frederick M.D. REFERRING PHYSICIAN: Nolvia Hartley M.D. REASON FOR CONSULTATION: Diabetes management. HISTORY OF PRESENT ILLNESS: This is a 60-year-old male with a history of diabetes, who presented to the hospital with tremor and fever. The patient's temperature was 102.0 degrees. Blood sugar of 336 . The patient has not been taking the medication probably for about a year, admitted to the floor for observation and treatment. He was also found to be thrombocytopenic. Endocrinology was consulted in order to assist in the management of hyperglycemia. PAST MEDICAL HISTORY: Diabetes. PAST SURGICAL HISTORY: None. MEDICATIONS: None. ALLERGIES TO MEDICATIONS: None. SOCIAL HISTORY: No smoking. No alcohol. No drug use. REVIEW OF SYSTEMS: As per history of present illness. PHYSICAL EXAMINATION: VITAL SIGNS: Blood pressure 139/78, respiratory rate 16, temperature 99 degrees, and pulse 69. HEENT: Pupils are equal and reactive to light. Sclerae are anicteric. NECK: No JVD. HEART: Regular. LUNGS: Clear. ABDOMEN: Positive bowel sounds. Soft. EXTREMITIES: Trace edema. LABORATORY AND DIAGNOSTIC DATA: Sodium 138, potassium 3.9, chloride 98, bicarbonate 23, BUN 24, creatinine 1.2, and glucose of 318. A1c 13. WBC 7, hemoglobin 12, hematocrit 36, and platelets of 55,000. DIAGNOSES: 1. Sepsis. 2. Diabetes, out of control. 3. Thrombocytopenia. 4. Noncompliance with medication. PLAN: 1. Start Levemir 10 units b.i.d. 2. Start NovoLog 7 units before each meal. 3. NovoLog sliding scale. 4. Adjustment according to Dr. Fonseca. Thank you, Dr. Hartley, for the courtesy of this consultation. Stewart Frederick M.D. DR: Celia JOB#: [id number] CC:
--- NOTE | 2016-07-23 15:23 | Pulmonology Progress Note ---
Assessment/Plan Problems: (1) Severe sepsis (2) Dehydration (3) UTI (urinary tract infection) (4) Uncontrolled diabetes mellitus Assessment/Plan improving continue antibiotics check cultures sensitivity Subjective ROS Limited/Unobtainable: No Interval Events: feeling better Allergies: Coded Allergies: No Known Allergies (Unverified , 07/21/16) Objective Last 24 Hour Vital Signs Date Time Temp Pulse Resp B/P Pulse Ox O2 Delivery O2 Flow Rate FiO2 07/23/16 12:12 99.5 75 18 148/81 95 Room Air 07/23/16 12:00 70 07/23/16 08:08 100.6 75 18 146/79 96 Room Air 07/23/16 08:00 73 07/23/16 04:07 99.0 69 20 139/78 95 Room Air 07/23/16 04:00 69 07/23/16 02:24 65 07/23/16 00:00 97.0 69 20 133/78 96 Room Air 07/22/16 21:12 99.0 07/22/16 20:00 67 07/22/16 19:59 101.7 82 18 139/74 94 Room Air 07/22/16 16:00 67 07/22/16 16:00 98.1 90 20 148/71 94 Room Air Intake and Output 07/22/16 07/23/16 19:00 07:00 Intake Total 900 ml 736.6 ml Output Total 700 ml 250 ml Balance 200 ml 486.6 ml Intake Oral 680 ml 150 ml IV Total 220 ml 586.6 ml Output Urine Total 700 ml 250 ml # Bowel Movements 1 General Appearance: WD/WN HEENT: normocephalic, atraumatic Respiratory/Chest: chest wall non-tender, lungs clear Cardiovascular: normal peripheral pulses, normal rate Abdomen: normal bowel sounds, soft, non tender Extremities: no cyanosis Skin: no rash, no lesions, no ulcers Microbiology Date/Time Source Procedure Growth Status 07/21/16 13:40 Blood Blood Culture - Preliminary Resulted 07/21/16 13:30 Blood Blood Culture - Preliminary Resulted 07/22/16 10:30 Nasal Nares Influenza Types A,B Antigen (BERTHA) - Final Complete Laboratory Tests 07/23/16 07:45: White Blood Count 8.4, Red Blood Count 3.88L, Hemoglobin 12.2L, Hematocrit 34.7L , Mean Corpuscular Volume 89, Mean Corpuscular Hemoglobin 31.3H, Mean Corpuscular Hemoglobin Concent 35.0, Red Cell Distribution Width 10.8L, Platelet Count 62L, Mean Platelet Volume 14.5H, Neutrophils (%) (Auto) , Lymphocytes (%) (Auto) , Monocytes (%) (Auto) , Eosinophils (%) (Auto) , Basophils (%) (Auto) , Differential Total Cells Counted 100, Neutrophils % ( Manual) 71, Lymphocytes % (Manual) 19L, Monocytes % (Manual) 6, Eosinophils % ( Manual) 0, Basophils % (Manual) 0, Band Neutrophils 4, Platelet Estimate DecreasedL, Platelet Morphology Normal, Red Blood Cell Morphology Normal, Reticulocyte Count 0.8, Haptoglobin 185, Fibrinogen 455H, Sodium Level 138, Potassium Level 3.8, Chloride Level 98, Carbon Dioxide Level 24, Anion Gap 16H, Blood Urea Nitrogen 21, Creatinine 0.9, Estimat Glomerular Filtration Rate > 60 , Glucose Level 211#H, Calcium Level 8.5L, Ferritin 978H, Total Bilirubin 1.1, Direct Bilirubin 0.3, Aspartate Amino Transf (AST/SGOT) 55H, Alanine Aminotransferase (ALT/SGPT) 42H, Alkaline Phosphatase 56, Total Protein 5.8L, Albumin 3.0L, Globulin 2.8, Albumin/Globulin Ratio 1.0, Vitamin B12 Level 369, Folate [Pending], Hepatitis A IgM Antibody [Pending], Hepatitis B Surface Antigen [Pending], Hepatitis B Core IgM Antibody [Pending], Hepatitis C Antibody [Pending], HIV (1&2) Antibody Rapid Negative Current Medications Medications (Trade) Dose Ordered Sig/Antonio Route PRN Reason Start Time Stop Time Status Last Admin Dose Admin Acetaminophen (Tylenol) 650 mg Q4H PRN ORAL Mild Pain (Pain Scale 1-3) 07/21/16 21:45 08/20/16 21:44 07/22/16 20:13 Acetaminophen (Tylenol) 650 mg Q4H PRN ORAL fever 07/21/16 22:00 08/20/16 21:59 07/22/16 03:32 Albuterol/ Ipratropium 3 ml 3 ml Q4HRT PRN HHN Shortness of Breath 07/21/16 22:00 07/26/16 21:59 Cefepime HCl/ Dextrose (Maxipime/D5W) 110 ml @ 220 mls/hr EVERY 12 HOURS IV 07/22/16 09:00 07/29/16 08:59 07/23/16 08:40 Dextrose (Dextrose 50%) STAT PRN IV Hypoglycemia 07/21/16 21:45 08/20/16 21:44 Insulin Aspart (NovoLOG) BEFORE MEALS AND HS SUBQ 07/22/16 06:30 08/21/16 06:29 07/22/16 20:23 Insulin Aspart (NovoLOG) 7 units NOVOTIAC SUBQ 07/23/16 11:50 08/22/16 11:49 Insulin Detemir (Levemir) 10 units Q12HR SUBQ 07/23/16 09:00 08/22/16 08:59 07/23/16 08:43 Morphine Sulfate (Morphine Sulfate) 2 mg Q4H PRN IVP Moderate Pain (Pain Scale 4-6) 07/21/16 22:00 07/28/16 21:59 07/22/16 14:37 Morphine Sulfate (Morphine Sulfate) 4 mg Q4HR PRN IVP Severe Pain (Pain Scale 7-10) 07/21/16 21:45 07/28/16 21:44 Nitroglycerin (Ntg) 0.4 mg q5min PRN SL Prn Chest Pain 07/21/16 22:00 08/20/16 21:59 Ondansetron HCl (Zofran) 4 mg Q6H PRN IVP Nausea & Vomiting 07/21/16 22:00 08/20/16 21:59 Polyethylene Glycol (Miralax) 17 gm DAILYPRN PRN ORAL Constipation 07/21/16 22:00 08/20/16 21:59 Temazepam (Restoril) 15 mg HSPRN PRN ORAL Insomnia 07/21/16 22:00 07/28/16 21:59 AZUCENA BUCK Jul 23, 2016 15:23
[2016-07-23 16:00] VITALS: BP 148/86
[2016-07-23 20:00] VITALS: BP 155/78
[2016-07-24] VITALS (7 sets, daily range): BP systolic 127–163; BP diastolic 71–89
[2016-07-24] MEDS: NovoLOG Insulin Flexpen SUBQ SCH ×7 (06:55→20:58)
[2016-07-24 07:16] LABS: ALANINE AMINOTRANSFERASE 37 U/L (3-41); ALBUMIN/GLOBULIN RATIO 0.9 (1.0-2.7); ANION GAP 15 (5-15); ASPARTATE AMINO TRANSFERASE 46 U/L (5-40); CALCIUM 8.7 mg/dL (8.6-10.2); CARBON DIOXIDE 25 mEQ/L (20-30); CHLORIDE 99 mEQ/L (98-107); CREATININE 0.8 mg/dL (0.7-1.2); GLOMERULAR FILTRATION RATE > 60 mL/min (>60); HEMOLYSIS 2; POTASSIUM 3.6 mEQ/L (3.4-4.9); SODIUM 139 mEQ/L (135-145); TOTAL PROTEIN 5.9 g/dL (6.6-8.7)
[2016-07-24 07:26] LABS: MEAN CORPUSCULAR HEMOGLOBIN 31.2 PG (27.0-31.0); MEAN CORPUSCULAR HGB CONC 34.9 G/DL (32.0-36.0); MEAN CORPUSCULAR VOLUME 89 FL (80-99); MEAN PLATELET VOLUME 13.6 FL (6.5-10.1); PLATELET COUNT 63 K/UL (150-450); RED BLOOD COUNT 3.93 M/UL (4.70-6.10); WHITE BLOOD COUNT 7.2 K/UL (4.8-10.8)
[2016-07-24 07:37] LABS: BILIRUBIN,DIRECT 0.3 mg/dL (0.1-0.3)
[2016-07-24 07:55] LABS: EOSINOPHILS % (MANUAL) 1 % (0-3); LYMPHOCYTES % (MANUAL) 25 % (20-45); NEUTROPHILS % (MANUAL) 67 % (45-75); TOTAL CELLS COUNTED 100
[2016-07-24 07:56] LABS: BAND NEUTROPHILS % (MANUAL) 0 % (0-8); BASOPHILS % (MANUAL) 0 % (0-2); PLATELET ESTIMATE DECREASED; PLATELET MORPHOLOGY NORMAL
[2016-07-24] MEDS: Cefepime HCl 2 GM in D5W 110 ML IV SCH ×2 (08:36→20:59)
[2016-07-24] MEDS: Levemir Flexpen SUBQ SCH ×2 (08:37→20:57)
--- NOTE | 2016-07-24 10:38 | General Progress Note ---
Assessment/Plan Status: stable Assessment/Plan 1. Bactremia-Gram negative : unknown resource 2. Abnormal imaging finding in Liver 3. Upper respiratory infection - likely viral. 4. Uncontrolled diabetes without diabetic ketoacidosis. 5. Acute kidney disease. 6. Thrombocytopenia. 7. Acute Anemia 8. GI-DVT prophylaxia Plan: Hem consult Endo consult were Reviewed current management current empirical gram negative coverage Subjective ROS Limited/Unobtainable: No Constitutional: Reports: malaise Cardiovascular: Reports: no symptoms Gastrointestinal/Abdominal: Reports: no symptoms 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: Reports: no symptoms Allergies: Coded Allergies: No Known Allergies (Unverified , 07/21/16) Objective Last 24 Hour Vital Signs Date Time Temp Pulse Resp B/P Pulse Ox O2 Delivery O2 Flow Rate FiO2 07/24/16 08:00 65 07/24/16 07:49 97.0 69 20 163/88 95 Room Air 07/24/16 04:17 98.4 67 20 127/86 97 Room Air 07/24/16 04:00 61 07/24/16 00:15 100.0 71 20 156/80 95 Room Air 07/24/16 00:00 67 07/23/16 21:26 98.5 07/23/16 20:00 75 07/23/16 20:00 101.5 76 20 155/78 96 Room Air 07/23/16 16:00 98.4 73 20 148/86 96 Room Air 07/23/16 16:00 74 07/23/16 12:12 99.5 75 18 148/81 95 Room Air 07/23/16 12:00 70 Intake and Output 07/23/16 07/24/16 19:00 07:00 Intake Total 220 ml 520 ml Output Total 1000 ml 1400 ml Balance -780 ml -880 ml Intake Oral 300 ml IV Total 220 ml 220 ml Output Urine Total 1000 ml 1400 ml Laboratory Tests 07/23/16 23:00: Stool Occult Blood Negative 07/24/16 04:50: White Blood Count 7.2, Red Blood Count 3.93L, Hemoglobin 12.2L, Hematocrit 35.1L , Mean Corpuscular Volume 89, Mean Corpuscular Hemoglobin 31.2H, Mean Corpuscular Hemoglobin Concent 34.9, Red Cell Distribution Width 11.0L, Platelet Count 63L, Mean Platelet Volume 13.6H, Neutrophils (%) (Auto) , Lymphocytes (%) (Auto) , Monocytes (%) (Auto) , Eosinophils (%) (Auto) , Basophils (%) (Auto) , Differential Total Cells Counted 100, Neutrophils % ( Manual) 67, Lymphocytes % (Manual) 25, Monocytes % (Manual) 7, Eosinophils % ( Manual) 1, Basophils % (Manual) 0, Band Neutrophils 0, Platelet Estimate DecreasedL, Platelet Morphology Normal, Red Blood Cell Morphology Normal, Sodium Level 139, Potassium Level 3.6, Chloride Level 99, Carbon Dioxide Level 25, Anion Gap 15, Blood Urea Nitrogen 17, Creatinine 0.8, Estimat Glomerular Filtration Rate > 60, Glucose Level 191H, Calcium Level 8.7, Total Bilirubin 1.4H, Direct Bilirubin 0.3, Aspartate Amino Transf (AST/SGOT) 46H, Alanine Aminotransferase (ALT/SGPT) 37, Alkaline Phosphatase 53, Total Protein 5.9L, Albumin 2.8L, Globulin 3.1, Albumin/Globulin Ratio 0.9L Height (Feet): 5 Height (Inches): 8.00 Weight (Pounds): 200 General Appearance: no apparent distress EENT: PERRL/EOMI Neck: supple Cardiovascular: normal rate Respiratory/Chest: lungs clear Abdomen: soft Extremities: non-tender 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
--- NOTE | 2016-07-24 10:42 | Infectious Diseases Prog Note ---
Assessment/Plan Assessment/Plan A: The patient is a 60-year-old male with Blood culture GNR ? source Fever, SP Possible sepsis, SP Fever and chills improved NO Abd pain to indicate Appendicitis , DW PCP who agrees, also DW Rad , the CT fidinings of Giorgi are very mild and not very suggestive of inflammatory process CT : mild appendicitis , Hepatic steatosis Mild bilateral perinephric stranding , nonspecific. Rapid influenza test and HIV : negative Ultrasound of the kidneys : negative for hydronephrosis Mild transaminitis PLAN: Continue the patient on IV Cefepime d# 3 Monitor CBC Monitor BMP. Monitor blood culture. acute Hep panel US of liver Subjective Constitutional: Denies: anorexia, chills, drenching sweats, fatigue, fever, no symptoms, other Allergies: Coded Allergies: No Known Allergies (Unverified , 07/21/16) Objective Vital Signs Last 24 Hour Vital Signs Date Time Temp Pulse Resp B/P Pulse Ox O2 Delivery O2 Flow Rate FiO2 07/24/16 08:00 65 07/24/16 07:49 97.0 69 20 163/88 95 Room Air 07/24/16 04:17 98.4 67 20 127/86 97 Room Air 07/24/16 04:00 61 07/24/16 00:15 100.0 71 20 156/80 95 Room Air 07/24/16 00:00 67 07/23/16 21:26 98.5 07/23/16 20:00 75 07/23/16 20:00 101.5 76 20 155/78 96 Room Air 07/23/16 16:00 98.4 73 20 148/86 96 Room Air 07/23/16 16:00 74 07/23/16 12:12 99.5 75 18 148/81 95 Room Air 07/23/16 12:00 70 Height (Feet): 5 Height (Inches): 8.00 Weight (Pounds): 200 HEENT: atraumatic Respiratory/Chest: lungs clear Cardiovascular: normal rate Abdomen: no organomegaly Microbiology Date/Time Source Procedure Growth Status 07/21/16 13:40 Blood Blood Culture - Preliminary Gram Negative Bacillus 1 Resulted 07/21/16 13:30 Blood Blood Culture - Preliminary Gram Negative Bacillus 1 Resulted 07/22/16 10:30 Nasal Nares Influenza Types A,B Antigen (BERTHA) - Final Complete Laboratory Tests Test 07/23/16 23:00 07/24/16 04:50 Stool Occult Blood Negative (NEGATIVE) White Blood Count 7.2 K/UL (4.8-10.8) Red Blood Count 3.93 M/UL (4.70-6.10) L Hemoglobin 12.2 G/DL (14.2-18.0) L Hematocrit 35.1 % (42.0-52.0) L Mean Corpuscular Volume 89 FL (80-99) Mean Corpuscular Hemoglobin 31.2 PG (27.0-31.0) H Mean Corpuscular Hemoglobin Concent 34.9 G/DL (32.0-36.0) Red Cell Distribution Width 11.0 % (11.6-14.8) L Platelet Count 63 K/UL (150-450) L Mean Platelet Volume 13.6 FL (6.5-10.1) H Neutrophils (%) (Auto) % (45.0-75.0) Lymphocytes (%) (Auto) % (20.0-45.0) Monocytes (%) (Auto) % (1.0-10.0) Eosinophils (%) (Auto) % (0.0-3.0) Basophils (%) (Auto) % (0.0-2.0) Differential Total Cells Counted 100 Neutrophils % (Manual) 67 % (45-75) Lymphocytes % (Manual) 25 % (20-45) Monocytes % (Manual) 7 % (1-10) Eosinophils % (Manual) 1 % (0-3) Basophils % (Manual) 0 % (0-2) Band Neutrophils 0 % (0-8) Platelet Estimate Decreased L Platelet Morphology Normal Red Blood Cell Morphology Normal Sodium Level 139 mEQ/L (135-145) Potassium Level 3.6 mEQ/L (3.4-4.9) Chloride Level 99 mEQ/L (98-107) Carbon Dioxide Level 25 mEQ/L (20-30) Anion Gap 15 (5-15) Blood Urea Nitrogen 17 mg/dL (7-23) Creatinine 0.8 mg/dL (0.7-1.2) Estimat Glomerular Filtration Rate > 60 mL/min (>60) Glucose Level 191 mg/dL (74-106) H Calcium Level 8.7 mg/dL (8.6-10.2) Total Bilirubin 1.4 mg/dL (0.0-1.2) H Direct Bilirubin 0.3 mg/dL (0.1-0.3) Aspartate Amino Transf (AST/SGOT) 46 U/L (5-40) H Alanine Aminotransferase (ALT/SGPT) 37 U/L (3-41) Alkaline Phosphatase 53 U/L (40-129) Total Protein 5.9 g/dL (6.6-8.7) L Albumin 2.8 g/dL (3.5-5.2) L Globulin 3.1 g/dL Albumin/Globulin Ratio 0.9 (1.0-2.7) L Current Medications Medications (Trade) Dose Ordered Sig/Antonio Route PRN Reason Start Time Stop Time Status Last Admin Dose Admin Acetaminophen (Tylenol) 650 mg Q4H PRN ORAL Mild Pain (Pain Scale 1-3) 07/21/16 21:45 08/20/16 21:44 07/24/16 05:47 Acetaminophen (Tylenol) 650 mg Q4H PRN ORAL fever 07/21/16 22:00 08/20/16 21:59 07/23/16 20:27 Albuterol/ Ipratropium 3 ml 3 ml Q4HRT PRN HHN Shortness of Breath 07/21/16 22:00 07/26/16 21:59 Cefepime HCl/ Dextrose (Maxipime/D5W) 110 ml @ 220 mls/hr EVERY 12 HOURS IV 07/22/16 09:00 07/29/16 08:59 07/24/16 08:36 Clonidine HCl (Catapres) 0.1 mg Q4H PRN ORAL SBP > 160 07/23/16 20:45 08/22/16 20:44 Dextrose (Dextrose 50%) STAT PRN IV Hypoglycemia 07/21/16 21:45 08/20/16 21:44 Insulin Aspart (NovoLOG) BEFORE MEALS AND HS SUBQ 07/22/16 06:30 08/21/16 06:29 07/24/16 06:55 Insulin Aspart (NovoLOG) 7 units NOVOTIAC SUBQ 07/23/16 11:50 08/22/16 11:49 07/24/16 06:55 Insulin Detemir (Levemir) 10 units Q12HR SUBQ 07/23/16 09:00 08/22/16 08:59 07/24/16 08:37 Morphine Sulfate (Morphine Sulfate) 2 mg Q4H PRN IVP Moderate Pain (Pain Scale 4-6) 07/21/16 22:00 07/28/16 21:59 07/22/16 14:37 Morphine Sulfate (Morphine Sulfate) 4 mg Q4HR PRN IVP Severe Pain (Pain Scale 7-10) 07/21/16 21:45 07/28/16 21:44 Nitroglycerin (Ntg) 0.4 mg q5min PRN SL Prn Chest Pain 07/21/16 22:00 08/20/16 21:59 Ondansetron HCl (Zofran) 4 mg Q6H PRN IVP Nausea & Vomiting 07/21/16 22:00 08/20/16 21:59 Polyethylene Glycol (Miralax) 17 gm DAILYPRN PRN ORAL Constipation 07/21/16 22:00 08/20/16 21:59 Temazepam (Restoril) 15 mg HSPRN PRN ORAL Insomnia 07/21/16 22:00 07/28/16 21:59 NNEKA WHALEY M.D. Jul 24, 2016 10:42
--- NOTE | 2016-07-24 11:05 | Diagnostic Imaging Report ---
Indication: ABD PAIN, abnormal liver function test, abnormal renal function tests Technique: Olivares-scale and duplex images of the upper abdomen were obtained Comparison: Abdomen pelvis CT dated 07/15/2016 Findings: . Gallbladder demonstrates no stones. There is mild gallbladder wall thickening and edema, however. Sonographic Kidd's sign is negative. Common bile duct measures 5 mm in diameter. No intrahepatic biliary ductal dilatation. Liver demonstrates diffusely increased echogenicity, consistent with diffuse hepatocellular disease, most likely fatty change, also described on CT. There is a small calcification within the right hepatic lobe, also described on CT scan. There is a hypoechoic lesion in the left hepatic lobe which measures 8 x 4 mm. The location is not definitely correspond to the lesion described on recent CT scan, which appears to be more superficial than the directly demonstrated abnormality Portal vein and hepatic veins are patent.. Pancreas is unremarkable. Spleen is unremarkable. Left kidney measures focal 5 cm in length. Right kidney measures 11 cm length. Both kidneys demonstrate normal echogenicity. There is no hydronephrosis. There is a small parapelvic cyst on the left. Non-aneurysmal abdominal aorta. Impression: 8 x 4 mm hypoechoic left hepatic lobe lesion, possibly but not definitively a cyst. No corresponding abnormalities seen on CT, however. Note that this does not appear to corresponding location to the lesion described on recent CT scan. That lesion likewise remains nonspecific. Recommended short interval followup CT and ultrasound in 6 months No gallstones. However, there is gallbladder wall thickening and edema. This is nonspecific, could be reactive secondary to adjacent hepatocellular disease, but acute acalculous cholecystitis is not excludable. Consider nuclear medicine hepatobiliary scan for further evaluation if this high clinical suspicion Liver demonstrates diffusely increased echogenicity, consistent with diffuse hepatocellular disease, most likely fatty change. Evidence of old granulomatous disease within the liver Small left renal parapelvic cyst, not visible on recent CT This agrees with the preliminary interpretation provided overnight by Dr. Christianson
--- NOTE | 2016-07-24 12:55 | Pulmonology Progress Note ---
Assessment/Plan Problems: (1) Severe sepsis (2) Dehydration (3) UTI (urinary tract infection) (4) Uncontrolled diabetes mellitus Assessment/Plan improving continue antibiotics check cultures sensitivity GNR bacteremia, Source? HIV negative Subjective ROS Limited/Unobtainable: No Constitutional: Reports: no symptoms HEENT: Repors: no symptoms Respiratory: Reports: no symptoms Cardiovascular: Reports: no symptoms Allergies: Coded Allergies: No Known Allergies (Unverified , 07/21/16) Objective Last 24 Hour Vital Signs Date Time Temp Pulse Resp B/P Pulse Ox O2 Delivery O2 Flow Rate FiO2 07/24/16 11:27 98.4 66 20 147/81 96 Room Air 07/24/16 08:00 65 07/24/16 07:49 97.0 69 20 163/88 95 Room Air 07/24/16 04:17 98.4 67 20 127/86 97 Room Air 07/24/16 04:00 61 07/24/16 00:15 100.0 71 20 156/80 95 Room Air 07/24/16 00:00 67 07/23/16 21:26 98.5 07/23/16 20:00 75 07/23/16 20:00 101.5 76 20 155/78 96 Room Air 07/23/16 16:00 98.4 73 20 148/86 96 Room Air 07/23/16 16:00 74 Intake and Output 07/23/16 07/24/16 19:00 07:00 Intake Total 220 ml 520 ml Output Total 1000 ml 1400 ml Balance -780 ml -880 ml Intake Oral 300 ml IV Total 220 ml 220 ml Output Urine Total 1000 ml 1400 ml General Appearance: WD/WN HEENT: normocephalic, atraumatic Respiratory/Chest: chest wall non-tender, lungs clear Cardiovascular: normal peripheral pulses, normal rate Abdomen: normal bowel sounds, soft, non tender Extremities: no cyanosis 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: efficiency 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 normal Microbiology Date/Time Source Procedure Growth Status 07/21/16 13:40 Blood Blood Culture - Preliminary Gram Negative Bacillus 1 Resulted 07/21/16 13:30 Blood Blood Culture - Preliminary Gram Negative Bacillus 1 Resulted 07/22/16 10:30 Nasal Nares Influenza Types A,B Antigen (BERTHA) - Final Complete Laboratory Tests 07/23/16 23:00: Stool Occult Blood Negative 07/24/16 04:50: White Blood Count 7.2, Red Blood Count 3.93L, Hemoglobin 12.2L, Hematocrit 35.1L , Mean Corpuscular Volume 89, Mean Corpuscular Hemoglobin 31.2H, Mean Corpuscular Hemoglobin Concent 34.9, Red Cell Distribution Width 11.0L, Platelet Count 63L, Mean Platelet Volume 13.6H, Neutrophils (%) (Auto) , Lymphocytes (%) (Auto) , Monocytes (%) (Auto) , Eosinophils (%) (Auto) , Basophils (%) (Auto) , Differential Total Cells Counted 100, Neutrophils % ( Manual) 67, Lymphocytes % (Manual) 25, Monocytes % (Manual) 7, Eosinophils % ( Manual) 1, Basophils % (Manual) 0, Band Neutrophils 0, Platelet Estimate DecreasedL, Platelet Morphology Normal, Red Blood Cell Morphology Normal, Sodium Level 139, Potassium Level 3.6, Chloride Level 99, Carbon Dioxide Level 25, Anion Gap 15, Blood Urea Nitrogen 17, Creatinine 0.8, Estimat Glomerular Filtration Rate > 60, Glucose Level 191H, Calcium Level 8.7, Total Bilirubin 1.4H, Direct Bilirubin 0.3, Aspartate Amino Transf (AST/SGOT) 46H, Alanine Aminotransferase (ALT/SGPT) 37, Alkaline Phosphatase 53, Total Protein 5.9L, Albumin 2.8L, Globulin 3.1, Albumin/Globulin Ratio 0.9L Current Medications Medications (Trade) Dose Ordered Sig/Antonio Route PRN Reason Start Time Stop Time Status Last Admin Dose Admin Acetaminophen (Tylenol) 650 mg Q4H PRN ORAL Mild Pain (Pain Scale 1-3) 07/21/16 21:45 08/20/16 21:44 07/24/16 05:47 Acetaminophen (Tylenol) 650 mg Q4H PRN ORAL fever 07/21/16 22:00 08/20/16 21:59 07/23/16 20:27 Albuterol/ Ipratropium 3 ml 3 ml Q4HRT PRN HHN Shortness of Breath 07/21/16 22:00 07/26/16 21:59 Cefepime HCl/ Dextrose (Maxipime/D5W) 110 ml @ 220 mls/hr EVERY 12 HOURS IV 07/22/16 09:00 07/29/16 08:59 07/24/16 08:36 Clonidine HCl (Catapres) 0.1 mg Q4H PRN ORAL SBP > 160 07/23/16 20:45 08/22/16 20:44 Dextrose (Dextrose 50%) STAT PRN IV Hypoglycemia 07/21/16 21:45 08/20/16 21:44 Insulin Aspart (NovoLOG) BEFORE MEALS AND HS SUBQ 07/22/16 06:30 08/21/16 06:29 07/24/16 11:46 Insulin Aspart (NovoLOG) 7 units NOVOTIAC SUBQ 07/23/16 11:50 08/22/16 11:49 07/24/16 11:46 Insulin Detemir (Levemir) 10 units Q12HR SUBQ 07/23/16 09:00 08/22/16 08:59 07/24/16 08:37 Morphine Sulfate (Morphine Sulfate) 2 mg Q4H PRN IVP Moderate Pain (Pain Scale 4-6) 07/21/16 22:00 07/28/16 21:59 07/22/16 14:37 Morphine Sulfate (Morphine Sulfate) 4 mg Q4HR PRN IVP Severe Pain (Pain Scale 7-10) 07/21/16 21:45 07/28/16 21:44 Nitroglycerin (Ntg) 0.4 mg q5min PRN SL Prn Chest Pain 07/21/16 22:00 08/20/16 21:59 Ondansetron HCl (Zofran) 4 mg Q6H PRN IVP Nausea & Vomiting 07/21/16 22:00 08/20/16 21:59 Polyethylene Glycol (Miralax) 17 gm DAILYPRN PRN ORAL Constipation 07/21/16 22:00 08/20/16 21:59 Temazepam (Restoril) 15 mg HSPRN PRN ORAL Insomnia 07/21/16 22:00 07/28/16 21:59 AZUCENA BUCK Jul 24, 2016 12:55
[2016-07-24] MEDS ORDERED: Nitroglycerin Subl 0.4mg tab (Bottle Of 25) SL PRN (14:00)
[2016-07-24] MEDS ORDERED: DuoNeb 0.5-3(2.5)mg/3ml neb HHN PRN (15:00)
--- NOTE | 2016-07-24 16:56 | General Progress Note ---
Assessment/Plan Assessment/Plan ASSESSMENT: 1. Thrombocytopenia - patient's baseline is unknown, will need to further evaluate with coag, us abdomen, hepatitis, hiv and medication review, likely related to sepsis, though do not have a baseline for him. Could also be ITP, potentially, thus far workup is negative 2. Anemia 2/2 chronic disease, hgb is approx 12 3. Upper respiratory infection - likely viral. 4. Uncontrolled diabetes without diabetic ketoacidosis. sugars initially in the 300s 5. Acute versus chronic kidney disease. PLAN: 1. Monitor counts 2. Plt goal >20k 3. Hepatitis and hiv are both negative 4. US abdomen reviewed to r/o cirrhosis and splenomegaly 5. Coags are within normal limits 6. DIC panel is negative 7. Mediations have been reviewed 8. Thank you for consult! Subjective Constitutional: Reports: no symptoms Cardiovascular: Reports: no symptoms Respiratory: Reports: no symptoms Gastrointestinal/Abdominal: Reports: poor appetite 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: Reports: no symptoms Hematologic/Lymphatic: Reports: no symptoms Allergies: Coded Allergies: No Known Allergies (Unverified , 07/21/16) Subjective stable, no events overnight, no fevers or chills, in bed, without complaints Objective Last 24 Hour Vital Signs Date Time Temp Pulse Resp B/P Pulse Ox O2 Delivery O2 Flow Rate FiO2 07/24/16 16:00 97.9 72 18 152/86 96 Room Air 07/24/16 12:00 79 07/24/16 11:27 98.4 66 20 147/81 96 Room Air 07/24/16 08:00 65 07/24/16 07:49 97.0 69 20 163/88 95 Room Air 07/24/16 04:17 98.4 67 20 127/86 97 Room Air 07/24/16 04:00 61 07/24/16 00:15 100.0 71 20 156/80 95 Room Air 07/24/16 00:00 67 07/23/16 21:26 98.5 07/23/16 20:00 75 07/23/16 20:00 101.5 76 20 155/78 96 Room Air Intake and Output 07/23/16 07/24/16 19:00 07:00 Intake Total 220 ml 520 ml Output Total 1000 ml 1400 ml Balance -780 ml -880 ml Intake Oral 300 ml IV Total 220 ml 220 ml Output Urine Total 1000 ml 1400 ml Laboratory Tests 07/23/16 23:00: Stool Occult Blood Negative 07/24/16 04:50: White Blood Count 7.2, Red Blood Count 3.93L, Hemoglobin 12.2L, Hematocrit 35.1L , Mean Corpuscular Volume 89, Mean Corpuscular Hemoglobin 31.2H, Mean Corpuscular Hemoglobin Concent 34.9, Red Cell Distribution Width 11.0L, Platelet Count 63L, Mean Platelet Volume 13.6H, Neutrophils (%) (Auto) , Lymphocytes (%) (Auto) , Monocytes (%) (Auto) , Eosinophils (%) (Auto) , Basophils (%) (Auto) , Differential Total Cells Counted 100, Neutrophils % ( Manual) 67, Lymphocytes % (Manual) 25, Monocytes % (Manual) 7, Eosinophils % ( Manual) 1, Basophils % (Manual) 0, Band Neutrophils 0, Platelet Estimate DecreasedL, Platelet Morphology Normal, Red Blood Cell Morphology Normal, Sodium Level 139, Potassium Level 3.6, Chloride Level 99, Carbon Dioxide Level 25, Anion Gap 15, Blood Urea Nitrogen 17, Creatinine 0.8, Estimat Glomerular Filtration Rate > 60, Glucose Level 191H, Calcium Level 8.7, Total Bilirubin 1.4H, Direct Bilirubin 0.3, Aspartate Amino Transf (AST/SGOT) 46H, Alanine Aminotransferase (ALT/SGPT) 37, Alkaline Phosphatase 53, Total Protein 5.9L, Albumin 2.8L, Globulin 3.1, Albumin/Globulin Ratio 0.9L Height (Feet): 5 Height (Inches): 8.00 Weight (Pounds): 200 General Appearance: lethargic EENT: PERRL/EOMI Neck: supple Cardiovascular: normal rate Respiratory/Chest: normal breath sounds Abdomen: non tender Pelvis: speculum exam normal Extremities: non-tender Edema: 1+ Leg (L), 1+ Leg (R) Edema: mild edema Neurologic: alert Skin: normal pigmentation Michele Brewer Jul 24, 2016 16:56
[2016-07-24] MEDS ORDERED: Morphine Sulfate 4mg/ml Inj IVP PRN (17:00)
[2016-07-24] MEDS ORDERED: NS 275ml ONE (17:04)
[2016-07-24] MEDS ORDERED: Tubing IV Secondary IV ONE (17:04)
[2016-07-24] MEDS ORDERED: D5W 275ml ONE (17:04)
[2016-07-24] MEDS ORDERED: Miralax 17gm pkt ORAL PRN (22:00)
[2016-07-25] VITALS: BP 155/85
[2016-07-25] MEDS: Morphine Sulfate 2mg/ml Inj IVP PRN (03:56)
[2016-07-25 04:00] VITALS: BP 153/87
[2016-07-25] MEDS: NovoLOG Insulin Flexpen SUBQ SCH ×8 (06:13→20:54)
[2016-07-25 06:53] LABS: MEAN CORPUSCULAR HGB CONC 36.3 G/DL (32.0-36.0); MEAN CORPUSCULAR VOLUME 88 FL (80-99); MEAN PLATELET VOLUME 12.9 FL (6.5-10.1); PLATELET COUNT 81 K/UL (150-450); RED BLOOD COUNT 4.02 M/UL (4.70-6.10); RED CELL DISTRIBUTION WIDTH 10.7 % (11.6-14.8); WHITE BLOOD COUNT 9.1 K/UL (4.8-10.8)
[2016-07-25 06:58] LABS: ALANINE AMINOTRANSFERASE 31 U/L (3-41); ALBUMIN/GLOBULIN RATIO 0.9 (1.0-2.7); ANION GAP 19 (5-15); ASPARTATE AMINO TRANSFERASE 35 U/L (5-40); CALCIUM 8.7 mg/dL (8.6-10.2); CARBON DIOXIDE 23 mEQ/L (20-30); CHLORIDE 95 mEQ/L (98-107); CREATININE 0.9 mg/dL (0.7-1.2); GLOMERULAR FILTRATION RATE > 60 mL/min (>60); HEMOLYSIS 4; POTASSIUM 3.7 mEQ/L (3.4-4.9); SODIUM 137 mEQ/L (135-145); TOTAL PROTEIN 6.2 g/dL (6.6-8.7)
--- NOTE | 2016-07-25 07:10 | Infectious Diseases Prog Note ---
Assessment/Plan Assessment/Plan A: The patient is a 60-year-old male with Blood culture EColi ? source ro liver abscess Fever, SP Possible sepsis, SP Fever and chills improved No Abd pain to indicate Appendicitis , DW PCP who agrees, also DW Rad , the CT findings of Giorgi are very mild and not very suggestive of inflammatory process CT : mild appendicitis , Hepatic steatosis Mild bilateral perinephric stranding , nonspecific. Rapid influenza test and HIV : negative Ultrasound of the kidneys : negative for hydronephrosis Mild transaminitis US : 8 x 4 mm hypoechoic left hepatic lobe lesion, possibly but notdefinitively a cyst. Thrombocytopenia PLAN: Continue the patient on IV Cefepime d# 4 / Monitor CBC Monitor BMP. Monitor blood culture.( repeat ) acute Hep panel MRI of liver ro liver abscess Subjective Allergies: Coded Allergies: No Known Allergies (Unverified , 07/21/16) Subjective chills last night Objective Vital Signs Last 24 Hour Vital Signs Date Time Temp Pulse Resp B/P Pulse Ox O2 Delivery O2 Flow Rate FiO2 07/25/16 04:00 98.1 65 18 153/87 96 Room Air 07/25/16 00:00 99.9 65 18 155/85 98 Room Air 07/24/16 21:45 142/71 07/24/16 21:09 162/89 07/24/16 20:00 97.3 71 17 162/89 95 Room Air 07/24/16 16:00 97.9 72 18 152/86 96 Room Air 07/24/16 12:00 79 07/24/16 11:27 98.4 66 20 147/81 96 Room Air 07/24/16 08:00 65 07/24/16 07:49 97.0 69 20 163/88 95 Room Air Height (Feet): 5 Height (Inches): 8.00 Weight (Pounds): 200 HEENT: anicteric Respiratory/Chest: normal breath sounds Cardiovascular: regular rhythm Abdomen: no organomegaly Microbiology Date/Time Source Procedure Growth Status 07/22/16 10:30 Nasal Nares Influenza Types A,B Antigen (BERTHA) - Final Complete Laboratory Tests Test 07/25/16 06:10 White Blood Count 9.1 K/UL (4.8-10.8) Red Blood Count 4.02 M/UL (4.70-6.10) L Hemoglobin 12.9 G/DL (14.2-18.0) L Hematocrit 35.5 % (42.0-52.0) L Mean Corpuscular Volume 88 FL (80-99) Mean Corpuscular Hemoglobin 32.0 PG (27.0-31.0) H Mean Corpuscular Hemoglobin Concent 36.3 G/DL (32.0-36.0) H Red Cell Distribution Width 10.7 % (11.6-14.8) L Platelet Count 81 K/UL (150-450) L Mean Platelet Volume 12.9 FL (6.5-10.1) H Neutrophils (%) (Auto) % (45.0-75.0) Lymphocytes (%) (Auto) % (20.0-45.0) Monocytes (%) (Auto) % (1.0-10.0) Eosinophils (%) (Auto) % (0.0-3.0) Basophils (%) (Auto) % (0.0-2.0) Neutrophils % (Manual) Pending Lymphocytes % (Manual) Pending Platelet Estimate Pending Platelet Morphology Pending Sodium Level 137 mEQ/L (135-145) Potassium Level 3.7 mEQ/L (3.4-4.9) Chloride Level 95 mEQ/L (98-107) L Carbon Dioxide Level 23 mEQ/L (20-30) Anion Gap 19 (5-15) H Blood Urea Nitrogen 20 mg/dL (7-23) Creatinine 0.9 mg/dL (0.7-1.2) Estimat Glomerular Filtration Rate > 60 mL/min (>60) Glucose Level 208 mg/dL (74-106) H Calcium Level 8.7 mg/dL (8.6-10.2) Total Bilirubin 1.4 mg/dL (0.0-1.2) H Direct Bilirubin Pending Aspartate Amino Transf (AST/SGOT) 35 U/L (5-40) Alanine Aminotransferase (ALT/SGPT) 31 U/L (3-41) Alkaline Phosphatase 76 U/L (40-129) Total Protein 6.2 g/dL (6.6-8.7) L Albumin 3.0 g/dL (3.5-5.2) L Globulin 3.2 g/dL Albumin/Globulin Ratio 0.9 (1.0-2.7) L Current Medications Medications (Trade) Dose Ordered Sig/Antonio Route PRN Reason Start Time Stop Time Status Last Admin Dose Admin Acetaminophen (Tylenol) 650 mg Q4H PRN ORAL fever 07/24/16 14:00 08/23/16 13:59 Acetaminophen (Tylenol) 650 mg Q4H PRN ORAL Mild Pain (Pain Scale 1-3) 07/24/16 17:45 08/23/16 17:44 Albuterol/ Ipratropium (DuoNeb 0.5-3(2.5)mg/3ml) 3 ml Q4HRT PRN HHN Shortness of Breath 07/24/16 15:00 07/29/16 14:59 Cefepime HCl/ Dextrose (Maxipime/D5W) 110 ml @ 220 mls/hr EVERY 12 HOURS IV 07/24/16 21:00 07/29/16 20:59 07/24/16 20:59 Clonidine HCl (Catapres) 0.1 mg Q4H PRN ORAL SBP > 160 07/24/16 16:45 08/23/16 16:44 07/24/16 21:09 Dextrose (Dextrose 50%) STAT PRN IV Hypoglycemia 07/24/16 21:45 08/23/16 21:44 Insulin Aspart (NovoLOG) BEFORE MEALS AND HS SUBQ 07/24/16 16:30 08/23/16 16:29 07/25/16 06:14 Insulin Aspart (NovoLOG) 7 units NOVOTIAC SUBQ 07/24/16 16:50 08/23/16 16:49 07/25/16 06:13 Insulin Detemir (Levemir) 10 units Q12HR SUBQ 07/24/16 21:00 08/23/16 20:59 07/24/16 20:57 Morphine Sulfate (Morphine Sulfate) 2 mg Q4H PRN IVP Moderate Pain (Pain Scale 4-6) 07/24/16 14:00 07/31/16 13:59 07/25/16 03:56 Morphine Sulfate (Morphine Sulfate) 4 mg Q4HR PRN IVP Severe Pain (Pain Scale 7-10) 07/24/16 17:00 07/31/16 16:59 Nitroglycerin (Ntg) 0.4 mg q5min PRN SL Prn Chest Pain 07/24/16 14:00 08/23/16 13:59 Ondansetron HCl (Zofran) 4 mg Q6H PRN IVP Nausea & Vomiting 07/24/16 16:00 08/23/16 15:59 Polyethylene Glycol (Miralax) 17 gm DAILYPRN PRN ORAL Constipation 07/24/16 22:00 08/23/16 21:59 Temazepam (Restoril) 15 mg HSPRN PRN ORAL Insomnia 07/24/16 22:00 07/31/16 21:59 NNEKA WHALEY M.D. Jul 25, 2016 07:10
[2016-07-25 07:11] LABS: BILIRUBIN,DIRECT 0.4 mg/dL (0.1-0.3)
[2016-07-25 07:52] LABS: ANISOCYTOSIS 1+; BAND NEUTROPHILS % (MANUAL) 0 % (0-8); BASOPHILS % (MANUAL) 1 % (0-2); EOSINOPHILS % (MANUAL) 1 % (0-3); LYMPHOCYTES % (MANUAL) 5 % (20-45); NEUTROPHILS % (MANUAL) 85 % (45-75); PLATELET ESTIMATE DECREASED; PLATELET MORPHOLOGY NORMAL; TOTAL CELLS COUNTED 100
--- NOTE | 2016-07-25 08:04 | General Progress Note ---
Assessment/Plan Problem List: (1) Uncontrolled diabetes mellitus ICD Codes: E11.65 - Type 2 diabetes mellitus with hyperglycemia SNOMED: 027661848 (2) Severe sepsis ICD Codes: A41.9 - Sepsis, unspecified organism; R65.20 - Severe sepsis without septic shock SNOMED: 94982110 Assessment/Plan continue Levemir 10 units bid continue Novolog 7 units ac tid + SSI Subjective Allergies: Coded Allergies: No Known Allergies (Unverified , 07/21/16) All Systems: reviewed and negative except above Subjective events noted Objective Last 24 Hour Vital Signs Date Time Temp Pulse Resp B/P Pulse Ox O2 Delivery O2 Flow Rate FiO2 07/25/16 04:00 98.1 65 18 153/87 96 Room Air 07/25/16 00:00 99.9 65 18 155/85 98 Room Air 07/24/16 21:45 142/71 07/24/16 21:09 162/89 07/24/16 20:00 97.3 71 17 162/89 95 Room Air 07/24/16 16:00 97.9 72 18 152/86 96 Room Air 07/24/16 12:00 79 07/24/16 11:27 98.4 66 20 147/81 96 Room Air Intake and Output 07/24/16 07/25/16 19:00 07:00 Intake Total 460 ml 180 ml Output Total 350 ml 500 ml Balance 110 ml -320 ml Intake Oral 240 ml 180 ml IV Total 220 ml Output Urine Total 350 ml 500 ml # Voids 2 # Bowel Movements 1 Laboratory Tests 07/25/16 06:10: White Blood Count 9.1, Red Blood Count 4.02L, Hemoglobin 12.9L, Hematocrit 35.5L , Mean Corpuscular Volume 88, Mean Corpuscular Hemoglobin 32.0H, Mean Corpuscular Hemoglobin Concent 36.3H, Red Cell Distribution Width 10.7L, Platelet Count 81L, Mean Platelet Volume 12.9H, Neutrophils (%) (Auto) , Lymphocytes (%) (Auto) , Monocytes (%) (Auto) , Eosinophils (%) (Auto) , Basophils (%) (Auto) , Differential Total Cells Counted 100, Neutrophils % ( Manual) 85H, Lymphocytes % (Manual) 5L, Monocytes % (Manual) 8, Eosinophils % ( Manual) 1, Basophils % (Manual) 1, Band Neutrophils 0, Platelet Estimate DecreasedL, Platelet Morphology Normal, Anisocytosis 1+, Sodium Level 137, Potassium Level 3.7, Chloride Level 95L, Carbon Dioxide Level 23, Anion Gap 19H , Blood Urea Nitrogen 20, Creatinine 0.9, Estimat Glomerular Filtration Rate > 60, Glucose Level 208H, Calcium Level 8.7, Total Bilirubin 1.4H, Direct Bilirubin 0.4H, Aspartate Amino Transf (AST/SGOT) 35, Alanine Aminotransferase ( ALT/SGPT) 31, Alkaline Phosphatase 76, Total Protein 6.2L, Albumin 3.0L, Globulin 3.2, Albumin/Globulin Ratio 0.9L Height (Feet): 5 Height (Inches): 8.00 Weight (Pounds): 200 General Appearance: no apparent distress Neck: normal alignment Cardiovascular: regular rhythm Respiratory/Chest: normal breath sounds Abdomen: normal bowel sounds Objective Current Medications Medications (Trade) Dose Ordered Sig/Antonio Route PRN Reason Start Time Stop Time Status Last Admin Dose Admin Acetaminophen (Tylenol) 650 mg Q4H PRN ORAL fever 07/24/16 14:00 08/23/16 13:59 Acetaminophen (Tylenol) 650 mg Q4H PRN ORAL Mild Pain (Pain Scale 1-3) 07/24/16 17:45 08/23/16 17:44 Albuterol/ Ipratropium (DuoNeb 0.5-3(2.5)mg/3ml) 3 ml Q4HRT PRN HHN Shortness of Breath 07/24/16 15:00 07/29/16 14:59 Cefepime HCl/ Dextrose (Maxipime/D5W) 110 ml @ 220 mls/hr EVERY 12 HOURS IV 07/24/16 21:00 07/29/16 20:59 07/24/16 20:59 Clonidine HCl (Catapres) 0.1 mg Q4H PRN ORAL SBP > 160 07/24/16 16:45 08/23/16 16:44 07/24/16 21:09 Dextrose (Dextrose 50%) STAT PRN IV Hypoglycemia 07/24/16 21:45 08/23/16 21:44 Insulin Aspart (NovoLOG) BEFORE MEALS AND HS SUBQ 07/24/16 16:30 08/23/16 16:29 07/25/16 06:14 Insulin Aspart (NovoLOG) 7 units NOVOTIAC SUBQ 07/24/16 16:50 08/23/16 16:49 07/25/16 06:13 Insulin Detemir (Levemir) 10 units Q12HR SUBQ 07/24/16 21:00 08/23/16 20:59 07/24/16 20:57 Morphine Sulfate (Morphine Sulfate) 2 mg Q4H PRN IVP Moderate Pain (Pain Scale 4-6) 07/24/16 14:00 07/31/16 13:59 07/25/16 03:56 Morphine Sulfate (Morphine Sulfate) 4 mg Q4HR PRN IVP Severe Pain (Pain Scale 7-10) 07/24/16 17:00 07/31/16 16:59 Nitroglycerin (Ntg) 0.4 mg q5min PRN SL Prn Chest Pain 07/24/16 14:00 08/23/16 13:59 Ondansetron HCl (Zofran) 4 mg Q6H PRN IVP Nausea & Vomiting 07/24/16 16:00 08/23/16 15:59 Polyethylene Glycol (Miralax) 17 gm DAILYPRN PRN ORAL Constipation 07/24/16 22:00 08/23/16 21:59 Temazepam (Restoril) 15 mg HSPRN PRN ORAL Insomnia 07/24/16 22:00 07/31/16 21:59 Item Value Date Time Bedside Blood Glucose 185 mg/dl H 07/25/16 0630 Bedside Blood Glucose 180 mg/dl H 07/24/16 2100 Bedside Blood Glucose 168 mg/dl H 07/24/16 1709 Bedside Blood Glucose 175 mg/dl H 07/24/16 1146 Bedside Blood Glucose 185 mg/dl H 07/24/16 0837 MICHAEL SKELTON 30, 2017 08:04
[2016-07-25 08:16] VITALS: BP 149/81
[2016-07-25] MEDS: Cefepime HCl 2 GM in D5W 110 ML IV SCH ×2 (08:28→20:52)
[2016-07-25] MEDS: Levemir Flexpen SUBQ SCH ×2 (08:34→20:53)
[2016-07-25 12:36] VITALS: BP 149/85
--- NOTE | 2016-07-25 13:52 | General Progress Note ---
Assessment/Plan Status: stable Assessment/Plan 1. Bactremia-Gram negative : unknown Source 2. Abnormal imaging finding in Liver 3. Upper respiratory infection - likely viral. 4. Uncontrolled diabetes without diabetic ketoacidosis. 5. Acute kidney disease. 6. Thrombocytopenia. 7. Acute Anemia 8. GI-DVT prophylaxia Plan: Hem consult Endo consult were Reviewed Pending MRI of liver current empirical gram negative coverage Subjective Constitutional: Reports: no symptoms HEENT: Reports: no symptoms Cardiovascular: Reports: no symptoms Respiratory: Reports: no symptoms Allergies: Coded Allergies: No Known Allergies (Unverified , 07/21/16) Objective Last 24 Hour Vital Signs Date Time Temp Pulse Resp B/P Pulse Ox O2 Delivery O2 Flow Rate FiO2 07/25/16 12:36 97.8 65 20 149/85 95 Room Air 07/25/16 09:00 70 18 Room Air 07/25/16 08:16 97.5 72 19 149/81 95 Room Air 07/25/16 04:00 98.1 65 18 153/87 96 Room Air 07/25/16 00:00 99.9 65 18 155/85 98 Room Air 07/24/16 21:45 142/71 07/24/16 21:09 162/89 07/24/16 20:00 97.3 71 17 162/89 95 Room Air 07/24/16 16:00 97.9 72 18 152/86 96 Room Air Intake and Output 07/24/16 07/25/16 19:00 07:00 Intake Total 460 ml 180 ml Output Total 350 ml 500 ml Balance 110 ml -320 ml Intake Oral 240 ml 180 ml IV Total 220 ml Output Urine Total 350 ml 500 ml # Voids 2 # Bowel Movements 1 Laboratory Tests 07/25/16 06:10: White Blood Count 9.1, Red Blood Count 4.02L, Hemoglobin 12.9L, Hematocrit 35.5L , Mean Corpuscular Volume 88, Mean Corpuscular Hemoglobin 32.0H, Mean Corpuscular Hemoglobin Concent 36.3H, Red Cell Distribution Width 10.7L, Platelet Count 81L, Mean Platelet Volume 12.9H, Neutrophils (%) (Auto) , Lymphocytes (%) (Auto) , Monocytes (%) (Auto) , Eosinophils (%) (Auto) , Basophils (%) (Auto) , Differential Total Cells Counted 100, Neutrophils % ( Manual) 85H, Lymphocytes % (Manual) 5L, Monocytes % (Manual) 8, Eosinophils % ( Manual) 1, Basophils % (Manual) 1, Band Neutrophils 0, Platelet Estimate DecreasedL, Platelet Morphology Normal, Anisocytosis 1+, Sodium Level 137, Potassium Level 3.7, Chloride Level 95L, Carbon Dioxide Level 23, Anion Gap 19H , Blood Urea Nitrogen 20, Creatinine 0.9, Estimat Glomerular Filtration Rate > 60, Glucose Level 208H, Calcium Level 8.7, Total Bilirubin 1.4H, Direct Bilirubin 0.4H, Aspartate Amino Transf (AST/SGOT) 35, Alanine Aminotransferase ( ALT/SGPT) 31, Alkaline Phosphatase 76, Total Protein 6.2L, Albumin 3.0L, Globulin 3.2, Albumin/Globulin Ratio 0.9L Height (Feet): 5 Height (Inches): 8.00 Weight (Pounds): 200 General Appearance: alert EENT: PERRL/EOMI Neck: supple Cardiovascular: normal rate Respiratory/Chest: lungs clear Abdomen: soft Extremities: non-tender Neurologic: program management intern II-XII grossly normal Nolvia Hartley MD Jul 25, 2016 13:52
--- NOTE | 2016-07-25 14:09 | Diagnostic Imaging Report ---
Indication: Abdominal pain, possible liver lesion seen on recent CT abdomen pelvis Technique: Axial single shot fast spin echo breath hold, coronal single shot fast spin-echo breath hold, axial T2 FRFSE fat-saturated, axial 2-D FIESTA fat-saturated, axial 3-D dual echo breath-hold, precontrast axial and postcontrast axial and coronal water weighted axial LAVA FLEX images of the abdomen Comparison: CT scan dated 07/23/2016, ultrasound dated 07/15/2016 Findings: In segment 3 of the liver adjacent to the fissure ligamentum teres posteriorly is a 2 cm area of signal abnormality corresponding to the abnormalities described on recent CT scan. This demonstrates considerable central loss on the out of phase dual echo images. It is isointense or perhaps slightly hyperintense the liver on the in phase dual echo images. Lesion is also is slightly hyperintense on the T2-weighted images, decreases in signal centrally on the fat-saturated T2-weighted images, is hypointense on the LAVA FLEX images and enhances only minimally. No liver abnormality to correspond to the hypoechoic lesion described on recent ultrasound is demonstrated. There is incidental finding of a tiny cyst at the dome of the right hepatic lobe. The gallbladder is nondistended, unremarkable. Bile ducts are unremarkable. The pancreas, spleen, adrenals, kidneys are unremarkable. No contrast enhancing lesions are demonstrated. Incidentally noted are small bilateral pleural effusions, also reported on recent CT. Impression: 2 cm lesion in segment 3 liver, also described on recent CT scan. Signal characteristics, in particular the signal dropout on the out of phase images, are consistent with focal fat deposition. However, given that neoplasms can on occasion contain fat, followup CT imaging at 6 months would be prudent Incidental finding of small bilateral pleural effusions, tiny right lobe liver cyst.
--- NOTE | 2016-07-25 15:03 | Pulmonology Progress Note ---
Assessment/Plan Problems: (1) Severe sepsis (2) Dehydration (3) UTI (urinary tract infection) (4) Uncontrolled diabetes mellitus Assessment/Plan improving continue antibiotics check cultures sensitivity GNR bacteremia, Source? HIV negative Liver MRI was negative for abscess consider switching abx to oral and dc Subjective ROS Limited/Unobtainable: No Constitutional: Reports: no symptoms HEENT: Repors: no symptoms Allergies: Coded Allergies: No Known Allergies (Unverified , 07/21/16) Objective Last 24 Hour Vital Signs Date Time Temp Pulse Resp B/P Pulse Ox O2 Delivery O2 Flow Rate FiO2 07/25/16 12:36 97.8 65 20 149/85 95 Room Air 07/25/16 09:00 70 18 Room Air 07/25/16 08:16 97.5 72 19 149/81 95 Room Air 07/25/16 04:00 98.1 65 18 153/87 96 Room Air 07/25/16 00:00 99.9 65 18 155/85 98 Room Air 07/24/16 21:45 142/71 07/24/16 21:09 162/89 07/24/16 20:00 97.3 71 17 162/89 95 Room Air 07/24/16 16:00 97.9 72 18 152/86 96 Room Air Intake and Output 07/24/16 07/25/16 19:00 07:00 Intake Total 460 ml 180 ml Output Total 350 ml 500 ml Balance 110 ml -320 ml Intake Oral 240 ml 180 ml IV Total 220 ml Output Urine Total 350 ml 500 ml # Voids 2 # Bowel Movements 1 Objective General Appearance: WD/WN HEENT: normocephalic, anicteric Respiratory/Chest: chest wall non-tender, lungs clear Breasts: no masses Cardiovascular: normal peripheral pulses, normal rate Abdomen: normal bowel sounds, soft, non tender Genitourinary: normal external genitalia Skin: no rash Laboratory Tests 07/25/16 06:10: White Blood Count 9.1, Red Blood Count 4.02L, Hemoglobin 12.9L, Hematocrit 35.5L , Mean Corpuscular Volume 88, Mean Corpuscular Hemoglobin 32.0H, Mean Corpuscular Hemoglobin Concent 36.3H, Red Cell Distribution Width 10.7L, Platelet Count 81L, Mean Platelet Volume 12.9H, Neutrophils (%) (Auto) , Lymphocytes (%) (Auto) , Monocytes (%) (Auto) , Eosinophils (%) (Auto) , Basophils (%) (Auto) , Differential Total Cells Counted 100, Neutrophils % ( Manual) 85H, Lymphocytes % (Manual) 5L, Monocytes % (Manual) 8, Eosinophils % ( Manual) 1, Basophils % (Manual) 1, Band Neutrophils 0, Platelet Estimate DecreasedL, Platelet Morphology Normal, Anisocytosis 1+, Sodium Level 137, Potassium Level 3.7, Chloride Level 95L, Carbon Dioxide Level 23, Anion Gap 19H , Blood Urea Nitrogen 20, Creatinine 0.9, Estimat Glomerular Filtration Rate > 60, Glucose Level 208H, Calcium Level 8.7, Total Bilirubin 1.4H, Direct Bilirubin 0.4H, Aspartate Amino Transf (AST/SGOT) 35, Alanine Aminotransferase ( ALT/SGPT) 31, Alkaline Phosphatase 76, Total Protein 6.2L, Albumin 3.0L, Globulin 3.2, Albumin/Globulin Ratio 0.9L Current Medications Medications (Trade) Dose Ordered Sig/Antonio Route PRN Reason Start Time Stop Time Status Last Admin Dose Admin Acetaminophen (Tylenol) 650 mg Q4H PRN ORAL fever 07/24/16 14:00 08/23/16 13:59 Acetaminophen (Tylenol) 650 mg Q4H PRN ORAL Mild Pain (Pain Scale 1-3) 07/24/16 17:45 08/23/16 17:44 Albuterol/ Ipratropium (DuoNeb 0.5-3(2.5)mg/3ml) 3 ml Q4HRT PRN HHN Shortness of Breath 07/24/16 15:00 07/29/16 14:59 Cefepime HCl/ Dextrose (Maxipime/D5W) 110 ml @ 220 mls/hr EVERY 12 HOURS IV 07/24/16 21:00 07/29/16 20:59 07/25/16 08:28 Clonidine HCl (Catapres) 0.1 mg Q4H PRN ORAL SBP > 160 07/24/16 16:45 08/23/16 16:44 07/24/16 21:09 Dextrose (Dextrose 50%) STAT PRN IV Hypoglycemia 07/24/16 21:45 08/23/16 21:44 Insulin Aspart (NovoLOG) BEFORE MEALS AND HS SUBQ 07/24/16 16:30 08/23/16 16:29 07/25/16 12:40 Insulin Aspart (NovoLOG) 7 units NOVOTIAC SUBQ 07/24/16 16:50 08/23/16 16:49 07/25/16 12:40 Insulin Detemir (Levemir) 10 units Q12HR SUBQ 07/24/16 21:00 08/23/16 20:59 07/25/16 08:34 Morphine Sulfate (Morphine Sulfate) 2 mg Q4H PRN IVP Moderate Pain (Pain Scale 4-6) 07/24/16 14:00 07/31/16 13:59 07/25/16 03:56 Morphine Sulfate (Morphine Sulfate) 4 mg Q4HR PRN IVP Severe Pain (Pain Scale 7-10) 07/24/16 17:00 07/31/16 16:59 Nitroglycerin (Ntg) 0.4 mg q5min PRN SL Prn Chest Pain 07/24/16 14:00 08/23/16 13:59 Ondansetron HCl (Zofran) 4 mg Q6H PRN IVP Nausea & Vomiting 07/24/16 16:00 08/23/16 15:59 Polyethylene Glycol (Miralax) 17 gm DAILYPRN PRN ORAL Constipation 07/24/16 22:00 08/23/16 21:59 Temazepam (Restoril) 15 mg HSPRN PRN ORAL Insomnia 07/24/16 22:00 07/31/16 21:59 AZUCENA BUCK Jul 25, 2016 15:03
[2016-07-25 16:00] VITALS: BP 169/90
[2016-07-25 19:00] VITALS: BP 158/81
--- NOTE | 2016-07-25 21:09 | General Progress Note ---
Assessment/Plan Assessment/Plan ASSESSMENT: 1. Thrombocytopenia - patient's baseline is unknown, will need to further evaluate with coag are wnl, us abdomen liver is wnl, hepatitis, hiv negative and medication review, likely related to sepsis, though do not have a baseline for him. Could also be ITP, potentially, thus far workup is negative --> plt count better 2. Anemia 2/2 chronic disease, hgb is approx 12 3. Upper respiratory infection - likely viral. 4. Uncontrolled diabetes without diabetic ketoacidosis. sugars initially in the 300s 5. Acute versus chronic kidney disease. RECS: 1. Monitor counts 2. Plt goal >20k 3. Hepatitis and hiv are both negative 4. US abdomen reviewed and MRI reviewed shows no cirrhosis 5. Coags are within normal limits 6. DIC panel is negative 7. Mediations have been reviewed 8. Thank you for consult! Subjective Constitutional: Denies: chills, diaphoresis, fever, malaise, no symptoms, other , weakness HEENT: Denies: blurred vision, double vision, ear discharge, ear pain, eye pain , mouth pain, mouth swelling, no symptoms, nose congestion, nose pain, other, tearing, throat pain, throat swelling Cardiovascular: Denies: chest pain, edema, irregular heart rate, lightheadedness, no symptoms, other, palpitations, syncope Respiratory: Denies: SOB at rest, SOB with excertion, cough, no symptoms, orthopnea, other, shortness of breath, sputum, stridor, wheezing Gastrointestinal/Abdominal: Denies: abdomen distended, abdominal pain, black stools, blood in stool, constipated, diarrhea, difficulty swallowing, nausea, no symptoms, other, poor appetite, poor fluid intake, rectal bleeding, tarry stools, vomiting Genitourinary: Denies: burning, discharge, flank pain, frequency, hematuria, incontinence, no symptoms, other, pain, urgency 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: Denies: anxiety, depressed, emotional problems, headache, no symptoms, numbness, other, paresthesia, pre-existing deficit, seizure, tingling, tremors, weakness Endocrine: Denies: excessive sweating, flushing, increased hunger, increased thirst, increased urine, intolerance to cold, intolerance to heat, no symptoms, other, unexplained weight gain, unexplained weight loss Allergies: Coded Allergies: No Known Allergies (Unverified , 07/21/16) Subjective stable, no events overnight, no fevers or chills, in bed, is without complaints Objective Last 24 Hour Vital Signs Date Time Temp Pulse Resp B/P Pulse Ox O2 Delivery O2 Flow Rate FiO2 07/25/16 19:38 73 18 Room Air 07/25/16 19:00 97.3 74 20 158/81 96 Room Air 07/25/16 16:00 98.2 63 20 169/90 98 Room Air 07/25/16 12:36 97.8 65 20 149/85 95 Room Air 07/25/16 09:00 70 18 Room Air 07/25/16 08:16 97.5 72 19 149/81 95 Room Air 07/25/16 04:00 98.1 65 18 153/87 96 Room Air 07/25/16 00:00 99.9 65 18 155/85 98 Room Air 07/24/16 21:45 142/71 07/24/16 21:09 162/89 Intake and Output 07/24/16 07/25/16 19:00 07:00 Intake Total 460 ml 180 ml Output Total 350 ml 500 ml Balance 110 ml -320 ml Intake Oral 240 ml 180 ml IV Total 220 ml Output Urine Total 350 ml 500 ml # Voids 2 # Bowel Movements 1 Laboratory Tests 07/25/16 06:10: White Blood Count 9.1, Red Blood Count 4.02L, Hemoglobin 12.9L, Hematocrit 35.5L , Mean Corpuscular Volume 88, Mean Corpuscular Hemoglobin 32.0H, Mean Corpuscular Hemoglobin Concent 36.3H, Red Cell Distribution Width 10.7L, Platelet Count 81L, Mean Platelet Volume 12.9H, Neutrophils (%) (Auto) , Lymphocytes (%) (Auto) , Monocytes (%) (Auto) , Eosinophils (%) (Auto) , Basophils (%) (Auto) , Differential Total Cells Counted 100, Neutrophils % ( Manual) 85H, Lymphocytes % (Manual) 5L, Monocytes % (Manual) 8, Eosinophils % ( Manual) 1, Basophils % (Manual) 1, Band Neutrophils 0, Platelet Estimate DecreasedL, Platelet Morphology Normal, Anisocytosis 1+, Sodium Level 137, Potassium Level 3.7, Chloride Level 95L, Carbon Dioxide Level 23, Anion Gap 19H , Blood Urea Nitrogen 20, Creatinine 0.9, Estimat Glomerular Filtration Rate > 60, Glucose Level 208H, Calcium Level 8.7, Total Bilirubin 1.4H, Direct Bilirubin 0.4H, Aspartate Amino Transf (AST/SGOT) 35, Alanine Aminotransferase ( ALT/SGPT) 31, Alkaline Phosphatase 76, Total Protein 6.2L, Albumin 3.0L, Globulin 3.2, Albumin/Globulin Ratio 0.9L Height (Feet): 5 Height (Inches): 8.00 Weight (Pounds): 200 General Appearance: no apparent distress EENT: TMs normal Neck: normal alignment Cardiovascular: normal rate Respiratory/Chest: lungs clear Abdomen: non tender Extremities: normal inspection Edema: 1+ Leg (L), 1+ Leg (R) Edema: mild edema Neurologic: alert Skin: warm/dry Michele Brewer Jul 25, 2016 21:09
--- NOTE | 2016-07-25 22:28 | Cardiology Report ---
APPROVED REPORT EKG Measurement Heart [id number] Normal sinus rhythm Left axis deviation Abnormal ECG
[2016-07-26] VITALS: BP 161/90
[2016-07-26] MEDS: Morphine Sulfate 2mg/ml Inj IVP PRN (01:14)
[2016-07-26 04:00] VITALS: BP 156/86
--- NOTE | 2016-07-26 06:03 | Infectious Diseases Prog Note ---
Assessment/Plan Assessment/Plan A: The patient is a 60-year-old male with Blood culture EColi ? source MRI : No liver abscess Fever, SP Possible sepsis, SP No Abd pain to indicate Appendicitis , DW PCP who agrees, also DW Rad , the CT findings of Giorgi are very mild and not very suggestive of inflammatory process CT : mild appendicitis , Hepatic steatosis Mild bilateral perinephric stranding , nonspecific. Rapid influenza test and HIV : negative Ultrasound of the kidneys : negative for hydronephrosis Mild transaminitis US : 8 x 4 mm hypoechoic left hepatic lobe lesion, possibly but notdefinitively a cyst. Thrombocytopenia PLAN: Continue the patient on IV Cefepime d# 5 / 14 , upon DC will change to Keflex to complete the course ( Rx in chart ) Monitor CBC Monitor BMP. Monitor blood culture.( repeat ) Acute Hep panel Subjective Constitutional: Denies: anorexia, chills, drenching sweats, fatigue, fever, no symptoms, other Allergies: Coded Allergies: No Known Allergies (Unverified , 07/21/16) Objective Vital Signs Last 24 Hour Vital Signs Date Time Temp Pulse Resp B/P Pulse Ox O2 Delivery O2 Flow Rate FiO2 07/26/16 04:00 98.6 72 18 156/86 95 Room Air 07/26/16 00:00 99.7 76 18 161/90 95 Room Air 07/25/16 19:38 73 18 Room Air 07/25/16 19:00 97.3 74 20 158/81 96 Room Air 07/25/16 16:00 98.2 63 20 169/90 98 Room Air 07/25/16 12:36 97.8 65 20 149/85 95 Room Air 07/25/16 09:00 70 18 Room Air 07/25/16 08:16 97.5 72 19 149/81 95 Room Air Height (Feet): 5 Height (Inches): 8.00 Weight (Pounds): 200 HEENT: atraumatic Respiratory/Chest: normal breath sounds Cardiovascular: regular rhythm Abdomen: no organomegaly Laboratory Tests Test 07/25/16 06:10 White Blood Count 9.1 K/UL (4.8-10.8) Red Blood Count 4.02 M/UL (4.70-6.10) L Hemoglobin 12.9 G/DL (14.2-18.0) L Hematocrit 35.5 % (42.0-52.0) L Mean Corpuscular Volume 88 FL (80-99) Mean Corpuscular Hemoglobin 32.0 PG (27.0-31.0) H Mean Corpuscular Hemoglobin Concent 36.3 G/DL (32.0-36.0) H Red Cell Distribution Width 10.7 % (11.6-14.8) L Platelet Count 81 K/UL (150-450) L Mean Platelet Volume 12.9 FL (6.5-10.1) H Neutrophils (%) (Auto) % (45.0-75.0) Lymphocytes (%) (Auto) % (20.0-45.0) Monocytes (%) (Auto) % (1.0-10.0) Eosinophils (%) (Auto) % (0.0-3.0) Basophils (%) (Auto) % (0.0-2.0) Differential Total Cells Counted 100 Neutrophils % (Manual) 85 % (45-75) H Lymphocytes % (Manual) 5 % (20-45) L Monocytes % (Manual) 8 % (1-10) Eosinophils % (Manual) 1 % (0-3) Basophils % (Manual) 1 % (0-2) Band Neutrophils 0 % (0-8) Platelet Estimate Decreased L Platelet Morphology Normal Anisocytosis 1+ Sodium Level 137 mEQ/L (135-145) Potassium Level 3.7 mEQ/L (3.4-4.9) Chloride Level 95 mEQ/L (98-107) L Carbon Dioxide Level 23 mEQ/L (20-30) Anion Gap 19 (5-15) H Blood Urea Nitrogen 20 mg/dL (7-23) Creatinine 0.9 mg/dL (0.7-1.2) Estimat Glomerular Filtration Rate > 60 mL/min (>60) Glucose Level 208 mg/dL (74-106) H Calcium Level 8.7 mg/dL (8.6-10.2) Total Bilirubin 1.4 mg/dL (0.0-1.2) H Direct Bilirubin 0.4 mg/dL (0.1-0.3) H Aspartate Amino Transf (AST/SGOT) 35 U/L (5-40) Alanine Aminotransferase (ALT/SGPT) 31 U/L (3-41) Alkaline Phosphatase 76 U/L (40-129) Total Protein 6.2 g/dL (6.6-8.7) L Albumin 3.0 g/dL (3.5-5.2) L Globulin 3.2 g/dL Albumin/Globulin Ratio 0.9 (1.0-2.7) L Current Medications Medications (Trade) Dose Ordered Sig/Antonio Route PRN Reason Start Time Stop Time Status Last Admin Dose Admin Acetaminophen (Tylenol) 650 mg Q4H PRN ORAL fever 07/24/16 14:00 08/23/16 13:59 Acetaminophen (Tylenol) 650 mg Q4H PRN ORAL Mild Pain (Pain Scale 1-3) 07/24/16 17:45 08/23/16 17:44 Albuterol/ Ipratropium (DuoNeb 0.5-3(2.5)mg/3ml) 3 ml Q4HRT PRN HHN Shortness of Breath 07/24/16 15:00 07/29/16 14:59 Cefepime HCl/ Dextrose (Maxipime/D5W) 110 ml @ 220 mls/hr EVERY 12 HOURS IV 07/24/16 21:00 07/29/16 20:59 07/25/16 20:52 Clonidine HCl (Catapres) 0.1 mg Q4H PRN ORAL SBP > 160 07/24/16 16:45 08/23/16 16:44 07/24/16 21:09 Dextrose (Dextrose 50%) STAT PRN IV Hypoglycemia 07/24/16 21:45 08/23/16 21:44 Insulin Aspart (NovoLOG) BEFORE MEALS AND HS SUBQ 07/24/16 16:30 08/23/16 16:29 07/25/16 20:54 Insulin Aspart (NovoLOG) 7 units NOVOTIAC SUBQ 07/24/16 16:50 08/23/16 16:49 07/25/16 20:54 Insulin Detemir (Levemir) 10 units Q12HR SUBQ 07/24/16 21:00 08/23/16 20:59 07/25/16 20:53 Morphine Sulfate (Morphine Sulfate) 2 mg Q4H PRN IVP Moderate Pain (Pain Scale 4-6) 07/24/16 14:00 07/31/16 13:59 07/26/16 01:14 Morphine Sulfate (Morphine Sulfate) 4 mg Q4HR PRN IVP Severe Pain (Pain Scale 7-10) 07/24/16 17:00 07/31/16 16:59 Nitroglycerin (Ntg) 0.4 mg q5min PRN SL Prn Chest Pain 07/24/16 14:00 08/23/16 13:59 Ondansetron HCl (Zofran) 4 mg Q6H PRN IVP Nausea & Vomiting 07/24/16 16:00 08/23/16 15:59 Polyethylene Glycol (Miralax) 17 gm DAILYPRN PRN ORAL Constipation 07/24/16 22:00 08/23/16 21:59 Temazepam (Restoril) 15 mg HSPRN PRN ORAL Insomnia 07/24/16 22:00 07/31/16 21:59 NNEKA WHALEY M.D. Jul 26, 2016 06:03
[2016-07-26] MEDS: NovoLOG Insulin Flexpen SUBQ SCH ×3 (06:18→12:30)
[2016-07-26 06:53] LABS: BASOPHILS % (AUTO) 0.9 % (0.0-2.0); EOSINOPHILS % (AUTO) 1.2 % (0.0-3.0); LYMPHOCYTES % (AUTO) 23.8 % (20.0-45.0); MEAN CORPUSCULAR HEMOGLOBIN 30.6 PG (27.0-31.0); MEAN CORPUSCULAR HGB CONC 34.1 G/DL (32.0-36.0); MEAN CORPUSCULAR VOLUME 90 FL (80-99); MEAN PLATELET VOLUME 11.4 FL (6.5-10.1); MONOCYTES % (AUTO) 10.3 % (1.0-10.0); NEUTROPHILS % (AUTO) 63.7 % (45.0-75.0); PLATELET COUNT 106 K/UL (150-450); RED BLOOD COUNT 4.15 M/UL (4.70-6.10); WHITE BLOOD COUNT 9.6 K/UL (4.8-10.8)
--- NOTE | 2016-07-26 07:21 | Pulmonology Progress Note ---
Assessment/Plan Assessment/Plan ASSESMENT sepsis with bacteremia URI, likely viral DOOC acute renal failure 2 to dehydration -resolved dehydration thrombocytopenia anemia of chronic disease elevated transaminase fatty liver disease ? acute acalculous cholecystitis liver lesion, likely local fat deposit due to fatty liver disease PLAN OF CARE MS floor abx ID follows blood cx + E coli, influenza screen negative repeat blood cx to ensure clearance as per ID O2 HHN CXR negative IVF monitor renal parameters, lytes ARF resolved, likely 2 to dehydration avoid nephrotoxic hypernatremia resolved also due to dehydration abdomen US with evidence of hepatocellular disease, likely fatty liver disease , no gallstones, but + GB wall thickening and edema, non specific findings CT A/P with evidence of mild appendicitis and hepatic steatosis no clinical evidence to suggest appendicitis, pain free, no GI complaints, lab work stable MRI abdomen revealed 2 cm lesion. Signal characteristics are consistent with focal fat deposition. However, given that neoplasms can on occasion contain fat, followup CT imaging at 6 months recommended MRI abdomen ruled out abscess monitor HH, at baseline, no trned down, no bleeding, stool OB negative heme follows LFT trending down hepatitis panel pending coag negative, DIC panel negative, unknown baseline for the patient -per heme, so far workup fro thrombocytopenia negative, PLT with trend up BS management with SS of insulin HgA1c not at goal-13.3 blood sugar management with short and long acting insulin as well as SS of insulin prn case discussed and evaluated by supervising physician Subjective Allergies: Coded Allergies: No Known Allergies (Unverified , 07/21/16) Subjective afebrile, no leukocytosis no signs of respiratory distress LFT trending down MRI abdomen no evidence of liver abscess Objective Last 24 Hour Vital Signs Date Time Temp Pulse Resp B/P Pulse Ox O2 Delivery O2 Flow Rate FiO2 07/26/16 04:00 98.6 72 18 156/86 95 Room Air 07/26/16 00:00 99.7 76 18 161/90 95 Room Air 07/25/16 19:38 73 18 Room Air 07/25/16 19:00 97.3 74 20 158/81 96 Room Air 07/25/16 16:00 98.2 63 20 169/90 98 Room Air 07/25/16 12:36 97.8 65 20 149/85 95 Room Air 07/25/16 09:00 70 18 Room Air 07/25/16 08:16 97.5 72 19 149/81 95 Room Air Intake and Output 07/25/16 07/26/16 19:00 07:00 Intake Total 450 ml 350 ml Output Total 800 ml 1450 ml Balance -350 ml -1100 ml Intake Oral 450 ml 240 ml IV Total 110 ml Output Urine Total 800 ml 1450 ml General Appearance: WD/WN, no acute distress HEENT: normocephalic, atraumatic, anicteric Respiratory/Chest: lungs clear, no respiratory distress, no accessory muscle use Cardiovascular: normal rate, regular rhythm, no JVD Abdomen: normal bowel sounds, soft, non tender Extremities: no edema 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: alert, oriented x 3, responsive Musculoskeletal: normal muscle bulk Laboratory Tests 07/26/16 05:45: White Blood Count 9.6, Red Blood Count 4.15L, Hemoglobin 12.7L, Hematocrit 37.3L , Mean Corpuscular Volume 90, Mean Corpuscular Hemoglobin 30.6, Mean Corpuscular Hemoglobin Concent 34.1, Red Cell Distribution Width 11.0L, Platelet Count 106L, Mean Platelet Volume 11.4H, Neutrophils (%) (Auto) 63.7, Lymphocytes (%) (Auto) 23.8, Monocytes (%) (Auto) 10.3H, Eosinophils (%) (Auto) 1.2, Basophils (%) (Auto) 0.9, Sodium Level [Pending], Potassium Level [Pending] , Chloride Level [Pending], Carbon Dioxide Level [Pending], Blood Urea Nitrogen [Pending], Creatinine [Pending], Estimat Glomerular Filtration Rate [Pending], Glucose Level [Pending], Calcium Level [Pending], Total Bilirubin [Pending], Aspartate Amino Transf (AST/SGOT) [Pending], Alanine Aminotransferase (ALT/SGPT ) [Pending], Alkaline Phosphatase [Pending], Total Protein [Pending], Albumin [ Pending], Globulin [Pending] Current Medications Medications (Trade) Dose Ordered Sig/Antonio Route PRN Reason Start Time Stop Time Status Last Admin Dose Admin Acetaminophen (Tylenol) 650 mg Q4H PRN ORAL fever 07/24/16 14:00 08/23/16 13:59 Acetaminophen (Tylenol) 650 mg Q4H PRN ORAL Mild Pain (Pain Scale 1-3) 07/24/16 17:45 4/28/17 17:44 Albuterol/ Ipratropium (DuoNeb 0.5-3(2.5)mg/3ml) 3 ml Q4HRT PRN HHN Shortness of Breath 07/24/16 15:00 07/29/16 14:59 Cefepime HCl/ Dextrose (Maxipime/D5W) 110 ml @ 220 mls/hr EVERY 12 HOURS IV 07/24/16 21:00 07/29/16 20:59 07/25/16 20:52 Clonidine HCl (Catapres) 0.1 mg Q4H PRN ORAL SBP > 160 07/24/16 16:45 08/23/16 16:44 07/24/16 21:09 Dextrose (Dextrose 50%) STAT PRN IV Hypoglycemia 07/24/16 21:45 08/23/16 21:44 Insulin Aspart (NovoLOG) BEFORE MEALS AND HS SUBQ 07/24/16 16:30 08/23/16 16:29 07/26/16 06:18 Insulin Aspart (NovoLOG) 7 units NOVOTIAC SUBQ 07/24/16 16:50 08/23/16 16:49 07/25/16 20:54 Insulin Detemir (Levemir) 10 units Q12HR SUBQ 07/24/16 21:00 08/23/16 20:59 07/25/16 20:53 Morphine Sulfate (Morphine Sulfate) 2 mg Q4H PRN IVP Moderate Pain (Pain Scale 4-6) 07/24/16 14:00 07/31/16 13:59 07/26/16 01:14 Morphine Sulfate (Morphine Sulfate) 4 mg Q4HR PRN IVP Severe Pain (Pain Scale 7-10) 07/24/16 17:00 07/31/16 16:59 Nitroglycerin (Ntg) 0.4 mg q5min PRN SL Prn Chest Pain 07/24/16 14:00 08/23/16 13:59 Ondansetron HCl (Zofran) 4 mg Q6H PRN IVP Nausea & Vomiting 07/24/16 16:00 08/23/16 15:59 Polyethylene Glycol (Miralax) 17 gm DAILYPRN PRN ORAL Constipation 07/24/16 22:00 08/23/16 21:59 Temazepam (Restoril) 15 mg HSPRN PRN ORAL Insomnia 07/24/16 22:00 07/31/16 21:59 [facility] ([facility])Radha NP Jul 26, 2016 07:21
[2016-07-26 07:33] LABS: ALANINE AMINOTRANSFERASE 31 U/L (3-41); ANION GAP 18 (5-15); ASPARTATE AMINO TRANSFERASE 41 U/L (5-40); CARBON DIOXIDE 25 mEQ/L (20-30); CHLORIDE 95 mEQ/L (98-107); CREATININE 0.8 mg/dL (0.7-1.2); GLOMERULAR FILTRATION RATE > 60 mL/min (>60); HEMOLYSIS 7; POTASSIUM 3.4 mEQ/L (3.4-4.9); SODIUM 138 mEQ/L (135-145); TOTAL PROTEIN 6.2 g/dL (6.6-8.7)
[2016-07-26 08:00] VITALS: BP 172/93
[2016-07-26] MEDS: Cefepime HCl 2 GM in D5W 110 ML IV SCH (08:09)
[2016-07-26] MEDS: Levemir Flexpen SUBQ SCH (08:10)
--- NOTE | 2016-07-26 08:55 | General Progress Note ---
Assessment/Plan Status: stable Assessment/Plan 1. Bactremia-Gram negative : unknown Source 2. Abnormal imaging finding in Liver 3. Upper respiratory infection - likely viral. 4. Uncontrolled diabetes without diabetic ketoacidosis. 5. Acute kidney disease. 6. Thrombocytopenia. 7. Acute Anemia 8. GI-DVT prophylaxia Plan: Hem consult Endo consult were Reviewed Negative workup for source of active infection will followup as an out patient Subjective ROS Limited/Unobtainable: Yes Constitutional: Reports: no symptoms HEENT: Reports: no symptoms Cardiovascular: Reports: no symptoms Respiratory: Reports: no symptoms Allergies: Coded Allergies: No Known Allergies (Unverified , 07/21/16) Objective Last 24 Hour Vital Signs Date Time Temp Pulse Resp B/P Pulse Ox O2 Delivery O2 Flow Rate FiO2 07/26/16 08:11 172/93 07/26/16 08:00 98.2 77 22 172/93 96 Room Air 07/26/16 04:00 98.6 72 18 156/86 95 Room Air 07/26/16 00:00 99.7 76 18 161/90 95 Room Air 07/25/16 19:38 73 18 Room Air 07/25/16 19:00 97.3 74 20 158/81 96 Room Air 07/25/16 16:00 98.2 63 20 169/90 98 Room Air 07/25/16 12:36 97.8 65 20 149/85 95 Room Air 07/25/16 09:00 70 18 Room Air Intake and Output 07/25/16 07/26/16 19:00 07:00 Intake Total 450 ml 350 ml Output Total 800 ml 1450 ml Balance -350 ml -1100 ml Intake Oral 450 ml 240 ml IV Total 110 ml Output Urine Total 800 ml 1450 ml Laboratory Tests 07/26/16 05:45: White Blood Count 9.6, Red Blood Count 4.15L, Hemoglobin 12.7L, Hematocrit 37.3L , Mean Corpuscular Volume 90, Mean Corpuscular Hemoglobin 30.6, Mean Corpuscular Hemoglobin Concent 34.1, Red Cell Distribution Width 11.0L, Platelet Count 106L, Mean Platelet Volume 11.4H, Neutrophils (%) (Auto) 63.7, Lymphocytes (%) (Auto) 23.8, Monocytes (%) (Auto) 10.3H, Eosinophils (%) (Auto) 1.2, Basophils (%) (Auto) 0.9, Sodium Level 138, Potassium Level 3.4, Chloride Level 95L, Carbon Dioxide Level 25, Anion Gap 18H, Blood Urea Nitrogen 19, Creatinine 0.8, Estimat Glomerular Filtration Rate > 60, Glucose Level 174H, Calcium Level 9.0, Total Bilirubin 1.0, Aspartate Amino Transf (AST/SGOT) 41H, Alanine Aminotransferase (ALT/SGPT) 31, Alkaline Phosphatase 68, Total Protein 6.2L, Albumin 3.2L, Globulin 3.0, Albumin/Globulin Ratio 1.0 Height (Feet): 5 Height (Inches): 8.00 Weight (Pounds): 200 General Appearance: WD/WN EENT: PERRL/EOMI Neck: supple Cardiovascular: normal rate Respiratory/Chest: lungs clear Abdomen: soft Extremities: non-tender Neurologic: oriented x 3 Nolvia Hartley MD Jul 26, 2016 08:55
[2016-07-26 12:00] VITALS: BP 161/85
[2016-07-26 12:40] VITALS: BP 152/90
[2016-07-26] MEDS ORDERED: METOPROLOL TART25 MG ORAL (13:21)
[2016-07-26] MEDS ORDERED: LEVEMIR FL100 UNIT/1 SUBQ (13:21)
[2016-07-26] MEDS ORDERED: CEPHALEXIN500 MG ORAL (13:22)
[2016-07-26] MEDS ORDERED: LEVEMIR FL100 UNIT/2 SQ (13:24)
--- NOTE | 2016-07-26 15:43 | General Progress Note ---
Assessment/Plan Assessment/Plan ASSESSMENT: 1. Thrombocytopenia - patient's baseline is unknown, likely is wnl and likely related to infection. Coag are wnl, us abdomen liver is wnl, hepatitis, hiv negative and medication review, likely related to sepsis, though do not have a baseline for him. Platelet count improved 2. Anemia 2/2 chronic disease, hgb is approx 12 3. Upper respiratory infection - likely viral. 4. Uncontrolled diabetes without diabetic ketoacidosis. sugars initially in the 300s 5. Acute versus chronic kidney disease. RECS: 1. Monitor counts 2. Plt goal >20k 3. Hepatitis and hiv are both negative 4. US abdomen reviewed and MRI reviewed shows no cirrhosis 5. Coags are within normal limits 6. DIC panel is negative 7. Mediations have been reviewed 8. Thank you for consult! Subjective Constitutional: Reports: no symptoms HEENT: Reports: no symptoms Cardiovascular: Reports: no symptoms Respiratory: Reports: no symptoms Gastrointestinal/Abdominal: Reports: poor appetite Genitourinary: Reports: no symptoms 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: Reports: no symptoms Endocrine: Reports: no symptoms Hematologic/Lymphatic: Reports: anemia Allergies: Coded Allergies: No Known Allergies (Unverified , 07/21/16) Subjective stable, no events overnight, no fevers or chills, in bed, without complaints Objective Last 24 Hour Vital Signs Date Time Temp Pulse Resp B/P Pulse Ox O2 Delivery O2 Flow Rate FiO2 07/26/16 12:40 77 152/90 07/26/16 12:00 97.3 73 22 161/85 97 Room Air 07/26/16 08:11 172/93 07/26/16 08:00 98.2 77 22 172/93 96 Room Air 07/26/16 04:00 98.6 72 18 156/86 95 Room Air 07/26/16 00:00 99.7 76 18 161/90 95 Room Air 07/25/16 19:38 73 18 Room Air 07/25/16 19:00 97.3 74 20 158/81 96 Room Air 07/25/16 16:00 98.2 63 20 169/90 98 Room Air Intake and Output 07/25/16 07/26/16 19:00 07:00 Intake Total 450 ml 350 ml Output Total 800 ml 1450 ml Balance -350 ml -1100 ml Intake Oral 450 ml 240 ml IV Total 110 ml Output Urine Total 800 ml 1450 ml Laboratory Tests 07/26/16 05:45: White Blood Count 9.6, Red Blood Count 4.15L, Hemoglobin 12.7L, Hematocrit 37.3L , Mean Corpuscular Volume 90, Mean Corpuscular Hemoglobin 30.6, Mean Corpuscular Hemoglobin Concent 34.1, Red Cell Distribution Width 11.0L, Platelet Count 106L, Mean Platelet Volume 11.4H, Neutrophils (%) (Auto) 63.7, Lymphocytes (%) (Auto) 23.8, Monocytes (%) (Auto) 10.3H, Eosinophils (%) (Auto) 1.2, Basophils (%) (Auto) 0.9, Sodium Level 138, Potassium Level 3.4, Chloride Level 95L, Carbon Dioxide Level 25, Anion Gap 18H, Blood Urea Nitrogen 19, Creatinine 0.8, Estimat Glomerular Filtration Rate > 60, Glucose Level 174H, Calcium Level 9.0, Total Bilirubin 1.0, Aspartate Amino Transf (AST/SGOT) 41H, Alanine Aminotransferase (ALT/SGPT) 31, Alkaline Phosphatase 68, Total Protein 6.2L, Albumin 3.2L, Globulin 3.0, Albumin/Globulin Ratio 1.0 Height (Feet): 5 Height (Inches): 8.00 Weight (Pounds): 200 General Appearance: alert EENT: TMs normal Neck: supple Cardiovascular: regular rhythm Respiratory/Chest: normal breath sounds Abdomen: non tender Extremities: non-tender Edema: 1+ Leg (L), 1+ Leg (R) Edema: mild edema Neurologic: alert Skin: warm/dry Michele Brewer Jul 26, 2016 15:43
[2016-07-26] MEDS ORDERED: Influenza Virus Vaccine 0.5ml IM ONE (16:00)
--- NOTE | 2016-07-29 10:42 | Discharge Summary ---
Discharge Summary Hospital Course Date of Admission Jul 21, 2016 at 21:02 Date of Discharge Jul 26, 2016 at 16:00 Admitting Diagnosis severe sepsis, dehydration HPI Paco Finnegan is a 60 year old male who was admitted on Jul 21, 2016 at 21:02 for Severe Sepsis,Dehydration Hospital Course dc summary #[id number] Discharge Medications New Medications: Insulin Regular, Human* (Novolin R*) 100 Unit/1 Ml Vial 7 UNIT SUBQ AC, #1 UNITS 7 units before meals, hold if not eating or NPO Continued Medications: Cephalexin* (Keflex*) 500 Mg Capsule 500 MG ORAL EVERY 6 HOURS for 10 Days, CAP Insulin Detemir (Levemir Flextouch) 100 Unit/1 Ml Insuln.pen 10 UNIT SQ BID, EA Metoprolol Tartrate* (Metoprolol Tartrate*) 25 Mg Tablet 25 MG ORAL EVERY 12 HOURS, #20 TAB Discharge Discharge Disposition Patient was discharged to Home (01) Discharge Diagnoses: Discharge Instructions Discharge Instructions Special Instructions I have been assigned to complete a D/C Summary on this account. I was not involved in the patient management Radha Montesinos NP ([facility]) Jul 29, 2016 10:41
--- NOTE | 2016-07-30 02:48 | Discharge Summary 2 SIG ---
DATE OF ADMISSION: 07/21/2016 DATE OF DISCHARGE: 07/26/2016 REASON FOR ADMISSION: 60-year-old male presented to the emergency room with fever for the last two days. He denied cough. He reported low back pain. The patient also had a history of diabetes. The patient reported fever of 102, blood sugar in route was 336. Upon arrival initially, he had a fever 101.2 degrees. He reported cough, but no shortness of breath. No chest pain. Initial BUN 31 and creatinine 1.5. Pulse oximetry was stable on the room air. The patient noted to have no leukocytosis. Lactic acid was elevated at 4.3. The patient was bradycardic. Platelets were 85,000. Glucose elevated -211. The patient admitted for further management. ADMITTING DIAGNOSES: 1. Possible sepsis. 2. Upper respiratory infection ,likely viral. 3. Diabetes mellitus, out of control without evidence of diabetic ketoacidosis. 4. Acute versus chronic kidney disease. 5. Thrombocytopenia. HOSPITAL COURSE: The patient admitted to the hospital. Pulmonary consult was obtained. Supplemetnal oxygen and pulmonary toilet provided as needed. Chest x-ray was negative. Influenza screen was negative. The patient was started on IV hydration. Nephrotoxic were avoided. Electrolytes and renal parameters were closely monitored. Creatinine down to normal-0.8. Acute renal failure resolved likely secondary to dehydration. Hyponatremia present initially, also resolved, likely secondary to dehydration. Infectious Disease doctor followed the patient. The patient found to have blood culture positivefor E coli. UA was negative. Repeated blood cultures were negative. The patient was on IV antibiotics while in hospital and changed to oral antibiotic prior to discharge as per ID recommendations. Prescription was given for Keflex for ten more days. Investigations Director followed. Investigations Director placed the patient on short and long acting insulin as well as sliding scale of insulin as needed. Hemoglobin A1c was 13.3. The patient need outpatient close follow up with the primary care provider once in month for blood sugar management. Member Service Specialist was involved in care of this patient due to initial thrombocytopenia. According to hot cell technician, the patient's baseline was unknown, however thrombocytopenia likely related to infection. Coagulation profile was within normal limits. DIC panel was negative Ultrasound of the abdomen and liver was within normal limits. Hepatitis panel and HIV test were both negative. Per hot cell technician, thrombocytopenia likely secondary to sepsis. Platelets count improved. Upon discharge, platelets 106,000. Anemia work up was done and noted to be of chronic disease as per Hematology. Peripheral blood smear was reviewed by hot cell technician and revealed mild normocytic normochromic anemia. No specific morphological changes were seen, no platelet aggregation. Hemoglobin and hematocrit were monitored, at the baseline, no trend down. No bleeding. Stool OB negative. Abdominal ultrasound revealed evidence of hepatocellular disease likely fatty liver disease, but no gallstones.It revealed gallbladder wall thickening and edema, but nonspecific finding. Subsequently, CT of the abdomen and pelvis was done, which revealed evidence of hepatic steatosis and mild appendicitis. However, no clinical evidence to suggest appendicitis. Pain free. No GI complaints, lab work was stable. LFT trending down. MRI of the abdomen ruled out abscess, and revealed hypoechoic liver lesion likely local fat deposit due to fatty liver disease.However, neoplasm on occasion can contain fat. Follow up CT imaging in six months was recommended. The patient was stable for discharge. DISCHARGE DIAGNOSES: 1. Possible sepsis 2. Bacteremia/E coli. 2. Upper respiratory infection, likely viral. 3. Diabetes out of control. 4. Acute renal failure secondary to dehydration, resolved. 5. Dehydration, resolved. 6. Thrombocytopenia, improved. 7. Anemia of chronic disease. 8. Elevated transaminase. 9. Fatty liver disease. 10. Liver lesion, likely local fat deposit due to fatty liver disease. DISCHARGE MEDICATIONS: See medication reconciliation list. DISCHARGE INSTRUCTIONS: The patient discharged home. Follow up with the primary medical doctor. Recommended to repeat CT of the abdomen in six months. Nolvia Hartley M.D. I have been assigned to dictate discharge summary on this account and I was not involved in the patient's management. Radha Santoscecelia N.PBeny DR: Farzana JOB#: [id number] CC: CHERELLE
== END 2016-07-26 16:00 | disposition home or self-care (01) | DRG 720 ==
LOC: EDBD 13:25 → EMR 13:35 → EDBEDREQ 20:55 → 2E 21:02 → 4E 07-24 13:52
DX: A41.9 Sepsis, unspecified organism (principal); N17.9 Acute kidney failure, unspecified; D69.6 Thrombocytopenia, unspecified; K80.00 Calculus of gallbladder with acute cholecystitis without obstruction; E11.65 Type 2 diabetes mellitus with hyperglycemia; E87.1 Hypo-osmolality and hyponatremia; K76.0 Fatty (change of) liver, not elsewhere classified; R65.20 Severe sepsis without septic shock; E86.0 Dehydration; N39.0 Urinary tract infection, site not specified; D63.8 Anemia in other chronic diseases classified elsewhere; J06.9 Acute upper respiratory infection, unspecified; Z91.14 Patient's other noncompliance with medication regimen
CPT/HCPCS: 36415; 71010; 74177; 74183; 76700; 76775; 80053; 81001; 81003; 82248; 82270; 82436; 82550; 82553; 82607; 82728; 82746; 82962; 83010; 83036; 83540; 83550; 83605; 83735; 83880; 83930; 83935; 84100; 84133; 84300; 84439; 84484; 84550; 85007; 85025; 85044; 85060; 85384; 85610; 85730; 86703; 86705; 86709; 86710; 86803; 87040; 87181; 87340; 89050; 93005; 94664; J1815; Q2036; S5561

== ENCOUNTER 2016-07-28 14:42 | Inpatient (IN) | payer OTHER ==
[~2016-07-28] VITALS: Ht 170.2 cm; Wt 72.6 kg
[~2016-07-28 14:42] MED LIST: CEPHALEXIN500 MG ORAL; LEVEMIR FL100 UNIT/1 SUBQ; LEVEMIR FL100 UNIT/2 SQ; METOPROLOL TART25 MG ORAL; NKM
[2016-07-28 14:59] VITALS: BP 143/73
--- NOTE | 2016-07-28 15:01 | Emergency Room Report ---
History of Present Illness General Chief Complaint: General Complaint Source: EMS Present Illness HPI Patient is a 60-year-old male presented after having increased generalized weakness and fever. The patient was noted to have prior history of diabetes recently diagnosed. Patient was noted to have some fever. He had not been vomiting. He was recently started on new medications. Allergies: Coded Allergies: No Known Allergies (Unverified , 07/21/16) Patient History Reviewed Nursing Documentation: PMH: Agreed, PSxH: Agreed Nursing Documentation-PMH Past Medical History: No History, Except For Hx Hypertension: Yes Hx Diabetes: Yes Review of Systems All Other Systems: negative except mentioned in HPI Physical Exam Vital Signs Date Time Temp Pulse Resp B/P Pulse Ox O2 Delivery O2 Flow Rate FiO2 07/28/16 14:25 100.0 86 15 137/82 99 Room Air Sp02 EP Interpretation: reviewed, normal General Appearance: normal inspection, well appearing, no apparent distress, alert, GCS 15, non-toxic Head: atraumatic ENT: normal ENT inspection, hearing grossly normal, normal voice Neck: normal inspection, full range of motion, supple, no bony tend Respiratory: normal inspection, lungs clear, normal breath sounds, no respiratory distress, no retraction, no wheezing Cardiovascular #1: regular rate, rhythm, no edema Gastrointestinal: normal inspection, normal bowel sounds, non tender, soft, no guarding, no hernia Genitourinary: no CVA tenderness Musculoskeletal: normal inspection, back normal, normal range of motion Neurologic: normal inspection, alert, oriented x3, responsive, 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 Differential diagnoses include was noted to have a urinary tract infection, severe sepsis, diabetic ketoacidosis, pneumonia, appendicitis, drug fever among others.Because of complexity of patient's case laboratory testing and imaging studies were ordered. EKG interpretation normal sinus rhythm with a rate of [address] or T wave changes. Rhythm strip showed normal sinus rhythm with a rate in the 60s without PVCs or ectopy. Patient was given IV fluids as well as IV antibiotics. Dr. Hartley was contacted for inpatient management Last Vital Signs Date Time Temp Pulse Resp B/P Pulse Ox O2 Delivery O2 Flow Rate FiO2 07/28/16 14:25 100.0 86 15 137/82 99 Room Air Status: unchanged Disposition: ADMITTED INPATIENT Condition: Juan Manuel Amato Jul 28, 2016 15:01
[2016-07-28] MEDS ORDERED: Unasyn 3gm Inj ONE ×2 (16:05→21:57)
[2016-07-28] MEDS ORDERED: Ampicillin/Sulbactam Sod 3 GM in NS 110 ML IVPB ONE ×2 (16:15→22:00)
[2016-07-28 16:25] LABS: BASOPHILS % (AUTO) 0.8 % (0.0-2.0); EOSINOPHILS % (AUTO) 0.7 % (0.0-3.0); LYMPHOCYTES % (AUTO) 12.8 % (20.0-45.0); MEAN CORPUSCULAR HEMOGLOBIN 30.9 PG (27.0-31.0); MEAN CORPUSCULAR HGB CONC 33.9 G/DL (32.0-36.0); MEAN CORPUSCULAR VOLUME 91 FL (80-99); MEAN PLATELET VOLUME 10.4 FL (6.5-10.1); MONOCYTES % (AUTO) 6.2 % (1.0-10.0); NEUTROPHILS % (AUTO) 79.6 % (45.0-75.0); PLATELET COUNT 144 K/UL (150-450); RED CELL DISTRIBUTION WIDTH 11.2 % (11.6-14.8); WHITE BLOOD COUNT 9.2 K/UL (4.8-10.8)
[2016-07-28 16:27] LABS: TROPONIN I < 0.30 ng/mL (<=0.30)
[2016-07-28 16:32] LABS: REFLEX LACTIC ACID YES OR NO YES
[2016-07-28 17:23] LABS: ALANINE AMINOTRANSFERASE 39 U/L (3-41); ANION GAP 17 (5-15); ASPARTATE AMINO TRANSFERASE 48 U/L (5-40); CALCIUM 8.4 mg/dL (8.6-10.2); CARBON DIOXIDE 24 mEQ/L (20-30); CHLORIDE 93 mEQ/L (98-107); GLOMERULAR FILTRATION RATE > 60 mL/min (>60); HEMOLYSIS 7; POTASSIUM 3.8 mEQ/L (3.4-4.9); SODIUM 134 mEQ/L (135-145); TOTAL PROTEIN 6.2 g/dL (6.6-8.7)
[2016-07-28 17:51] LABS: CKMB < 1.5 ng/mL (< 6.7)
[2016-07-28 18:06] VITALS: BP 148/89
[2016-07-28 18:18] LABS: APPEARANCE,URINE SLIGHTLY CLOUDY; KETONES,URINE NEGATIVE (NEGATIVE); LEUKOCYTE ESTERASE ,URINE NEGATIVE (NEGATIVE); NITRITE,URINE NEGATIVE (NEGATIVE); PH,URINE 6 (4.5-8.0); PROTEIN,URINE 1+ (NEGATIVE); UROBILINOGEN,URINE 4 MG/DL (0.0-1.0)
[2016-07-28 18:32] LABS: RBC,URINE 0 /HPF (0 - 0)
[2016-07-28 18:33] LABS: BACTERIA,URINE FEW /HPF; ICTOTEST NEGATIVE; MUCUS,URINE FEW /LPF (NONE/OCC); SQUAMOUS EPITHELIAL CELL,UR FEW /LPF (NONE/OCC); WBC,URINE 0 /HPF (0 - 0)
[2016-07-28 19:43] VITALS: BP 135/72
[2016-07-28] MEDS ORDERED: Enoxaparin 40mg Inj SUBQ SCH (21:00)
[2016-07-28] MEDS ORDERED: Zosyn 3.375gm inj ONE (21:40)
[2016-07-28] MEDS ORDERED: Piperacillin/Tazobactam 3.375 GM in NS 110 ML IVPB ONE (21:45)
[2016-07-28 22:24] VITALS: BP 131/69
[2016-07-29] VITALS (7 sets, daily range): BP systolic 118–156; BP diastolic 64–85
[2016-07-29 06:55] LABS: BASOPHILS % (AUTO) 0.5 % (0.0-2.0); EOSINOPHILS % (AUTO) 1.4 % (0.0-3.0); LYMPHOCYTES % (AUTO) 17.9 % (20.0-45.0); MEAN CORPUSCULAR HEMOGLOBIN 31.4 PG (27.0-31.0); MEAN CORPUSCULAR HGB CONC 35.3 G/DL (32.0-36.0); MEAN CORPUSCULAR VOLUME 89 FL (80-99); MEAN PLATELET VOLUME 11.6 FL (6.5-10.1); MONOCYTES % (AUTO) 6.7 % (1.0-10.0); NEUTROPHILS % (AUTO) 73.5 % (45.0-75.0); PLATELET COUNT 151 K/UL (150-450); RED BLOOD COUNT 3.61 M/UL (4.70-6.10); RED CELL DISTRIBUTION WIDTH 10.9 % (11.6-14.8); WHITE BLOOD COUNT 9.3 K/UL (4.8-10.8)
[2016-07-29 07:07] LABS: ALANINE AMINOTRANSFERASE 33 U/L (3-41); ALBUMIN/GLOBULIN RATIO 0.8 (1.0-2.7); ANION GAP 15 (5-15); ASPARTATE AMINO TRANSFERASE 35 U/L (5-40); CALCIUM 8.2 mg/dL (8.6-10.2); CARBON DIOXIDE 25 mEQ/L (20-30); CHLORIDE 101 mEQ/L (98-107); CREATININE 0.8 mg/dL (0.7-1.2); GLOMERULAR FILTRATION RATE > 60 mL/min (>60); HEMOLYSIS 0; POTASSIUM 3.7 mEQ/L (3.4-4.9); SODIUM 141 mEQ/L (135-145); TOTAL PROTEIN 5.9 g/dL (6.6-8.7)
[2016-07-29 07:30] LABS: TROPONIN I < 0.30 ng/mL (<=0.30)
--- NOTE | 2016-07-29 09:43 | Consultation ---
Consult Note Assessment/Plan ID Dic # [id number] Assessment/Plan A: The patient is a 60-year-old male with Fever Ro recurrent Bacteremia Hx of +ve Blood culture EColi ? source MRI : No liver abscess Thrombocytopenia , SP PLAN: Continue the patient on IV Zosyn d# 2 ( SP Cefepime 5 ) Monitor CBC Monitor BMP. Monitor blood culture.( repeat ) WBC Scan Ct of NNEKA Luz M.D. Jul 29, 2016 09:43
[2016-07-29] MEDS: Metoprolol 25mg tab ORAL SCH ×2 (10:31→21:00)
[2016-07-29] MEDS ORDERED: NOVOLIN R100 UNIT/1 SUBQ (10:41)
[2016-07-29] MEDS: NovoLOG Insulin Flexpen SUBQ SCH ×3 (11:30→21:04)
--- NOTE | 2016-07-29 12:18 | Diagnostic Imaging Report ---
Indication: SOB Technique: One view of the chest Comparison: Returned 10/15/16 Findings: Lungs and pleural spaces are clear. Heart size is upper limits normal . No significant Impression: No acute process
[2016-07-29] MEDS: Piperacillin/Tazobactam 3.375 GM in D5W 110 ML IVPB SCH ×2 (13:04→18:35)
--- NOTE | 2016-07-29 14:12 | History & Physical ---
History and Physical History & Physicial seen and examined. Dictation completed Nolvia Hartley MD Jul 29, 2016 14:12
--- NOTE | 2016-07-29 14:14 | General Progress Note ---
Assessment/Plan Status: stable Assessment/Plan 1- FUO 2- Anemia 3- Thrombocytopenia 4- Gi-DVT prohpylaxia Plan: Await In-scan result current empirically abx Subjective ROS Limited/Unobtainable: Yes Constitutional: Reports: no symptoms HEENT: Reports: no symptoms Cardiovascular: Reports: no symptoms Respiratory: Reports: no symptoms Allergies: Coded Allergies: No Known Allergies (Unverified , 07/21/16) Objective Last 24 Hour Vital Signs Date Time Temp Pulse Resp B/P Pulse Ox O2 Delivery O2 Flow Rate FiO2 07/29/16 12:00 100.0 68 20 156/85 97 Room Air 07/29/16 10:31 75 145/78 07/29/16 08:00 98.2 65 20 146/79 95 Room Air 07/29/16 04:00 98.6 86 18 135/84 98 Room Air 07/29/16 00:39 99.1 65 19 144/77 96 Room Air 07/29/16 00:00 99.1 18 144/77 96 Room Air 07/28/16 23:28 98.6 61 22 131/69 99 Room Air 07/28/16 22:24 98.6 61 22 131/69 99 Room Air 07/28/16 19:43 98.6 63 22 135/72 99 Room Air 07/28/16 18:06 98.6 65 22 148/89 99 Room Air 07/28/16 17:19 98.6 07/28/16 14:59 102.0 82 22 143/73 99 Room Air 07/28/16 14:25 100.0 86 15 137/82 99 Room Air Intake and Output 07/28/16 07/29/16 19:00 07:00 Intake Total 1110 ml 1350 ml Output Total 200 ml Balance 1110 ml 1150 ml Intake Oral 240 ml IV Total 1110 ml 1110 ml Output Urine Total 200 ml # Voids 1 # Bowel Movements 1 Laboratory Tests 07/28/16 15:15: White Blood Count 9.2, Red Blood Count 3.70L, Hemoglobin 11.4L, Hematocrit 33.7L , Mean Corpuscular Volume 91, Mean Corpuscular Hemoglobin 30.9, Mean Corpuscular Hemoglobin Concent 33.9, Red Cell Distribution Width 11.2L, Platelet Count 144L, Mean Platelet Volume 10.4H, Neutrophils (%) (Auto) 79.6H, Lymphocytes (%) (Auto) 12.8L, Monocytes (%) (Auto) 6.2, Eosinophils (%) (Auto) 0.7, Basophils (%) (Auto) 0.8, Erythrocyte Sedimentation Rate 65H, Sodium Level 134L, Potassium Level 3.8, Chloride Level 93L, Carbon Dioxide Level 24, Anion Gap 17H, Blood Urea Nitrogen 20, Creatinine 1.0, Estimat Glomerular Filtration Rate > 60, Glucose Level 315H, Lactic Acid Level 2.20, Calcium Level 8.4L, Total Bilirubin 1.0, Aspartate Amino Transf (AST/SGOT) 48H, Alanine Aminotransferase (ALT/SGPT) 39, Alkaline Phosphatase 63, Total Creatine Kinase 79, Creatine Kinase MB < 1.5, Creatine Kinase MB Relative Index , Troponin I < 0.30, Total Protein 6.2L, Albumin 3.1L, Globulin 3.1, Albumin/Globulin Ratio 1.0 07/28/16 16:50: Lactic Acid Level 1.30 07/28/16 17:50: Urine Color Renetta, Urine Appearance Slightly cloudy, Urine pH 6, Urine Specific [place] 1.010, Urine Protein 1+H, Urine Glucose (UA) 4+H, Urine Ketones Negative , Urine Occult Blood Negative, Urine Nitrite Negative, Urine Bilirubin Negative , Urine Ictotest Negative, Urine Urobilinogen 4H, Urine Leukocyte Esterase Negative, Urine RBC 0, Urine WBC 0, Urine Squamous Epithelial Cells Few, Urine Bacteria Few, Urine Mucus FewH 07/29/16 05:50: White Blood Count 9.3, Red Blood Count 3.61L, Hemoglobin 11.4L, Hematocrit 32.2L , Mean Corpuscular Volume 89, Mean Corpuscular Hemoglobin 31.4H, Mean Corpuscular Hemoglobin Concent 35.3, Red Cell Distribution Width 10.9L, Platelet Count 151, Mean Platelet Volume 11.6H, Neutrophils (%) (Auto) 73.5, Lymphocytes (%) (Auto) 17.9L, Monocytes (%) (Auto) 6.7, Eosinophils (%) (Auto) 1.4, Basophils (%) (Auto) 0.5, Sodium Level 141, Potassium Level 3.7, Chloride Level 101, Carbon Dioxide Level 25, Anion Gap 15, Blood Urea Nitrogen 14, Creatinine 0.8, Estimat Glomerular Filtration Rate > 60, Glucose Level 206#H, Calcium Level 8.2L, Total Bilirubin 0.9, Aspartate Amino Transf (AST/SGOT) 35, Alanine Aminotransferase (ALT/SGPT) 33, Alkaline Phosphatase 88, Creatine Kinase MB < 1.5, Troponin I < 0.30, Total Protein 5.9L, Albumin 2.7L, Globulin 3.2, Albumin/Globulin Ratio 0.8L, Hemoglobin A1c 12.0H, C-Reactive Protein, Quantitative 6.5H, Anti-Nuclear Antibody Screen [Pending], c-ANCA Titer [Pending ], p-ANCA Titer [Pending] Height (Feet): 5 Height (Inches): 7.00 Weight (Pounds): 160 General Appearance: no apparent distress EENT: PERRL/EOMI Neck: supple Cardiovascular: normal rate Respiratory/Chest: lungs clear Abdomen: soft Extremities: non-tender Nolvia Hartley MD Jul 29, 2016 14:14
[2016-07-29] MEDS ORDERED: metFORMIN 500mg tab ORAL SCH (16:30)
--- NOTE | 2016-07-29 18:15 | Diagnostic Imaging Report ---
Clinical Indication: Abdominal pain, fever, constipation Technique: Patient given oral contrast. IV administration nonionic contrast. Venous phase spiral acquisition obtained through the abdomen and pelvis. Multiplanar reconstructions were generated. Total dose length product 1096 mGycm. CTDIvol(s) 18 mGy Comparison: 07/23/2016 Findings: Again demonstrated is thickening of the appendix this is slightly more striking than on prior study. There is a density at the tip of the appendix again demonstrated. There is infiltration of the periappendiceal fat, which is similar to the prior exam. No extraluminal fluid collections are evident. No evidence of diverticulosis or diverticulitis. No small bowel distention or small bowel wall thickening. The distal esophagus, stomach, duodenum are unremarkable. No free or loculated intraperitoneal air or fluid. The liver demonstrates a tiny calcification at the tip right hepatic lobe. The gallbladder is nondistended. The liver is diffusely hypoattenuating, consistent with fatty change. Previously demonstrated left hepatic lobe low-attenuation lesion is again demonstrated. The pancreas, spleen, adrenals, kidneys are unremarkable. No mesenteric or retroperitoneal mass or adenopathy. No pelvic mass or adenopathy. The prostate is somewhat prominent Again demonstrated are bilateral pleural effusions and basilar atelectasis, somewhat increased from the prior study. When compared to the prior study, previously demonstrated [place] catheter and intraluminal bladder gas are no longer present Impression: Findings compatible with continued uncomplicated acute appendicitis, also described on previous 07/23/2016 exam. This was discussed with the patient's nurse at the time of interpretation Fatty liver Focal left hepatic lobe low-attenuation lesion, previously worked up by MRI, thought likely to represent a focal fatty deposition. Hepatic steatosis also previously described. Hepatic old granulomatous disease, also previously described Bilateral pleural effusions and basilar atelectasis, slightly increased from the prior exam Other findings as described . CT scanner at [facility] is accredited by the [employer] and the scans are performed using protocols designed to limit radiation exposure to as low as reasonably achievable to attain images of sufficient resolution adequate for diagnostic evaluation.
--- NOTE | 2016-07-29 19:18 | Consultation ---
DATE OF CONSULTATION: INFECTIOUS DISEASE CONSULTATION CONSULTING PHYSICIAN: Yuri Verma M.D. REFERRING PHYSICIAN: Nolvia Hartley M.D. REASON FOR CONSULTATION: Evaluation of patient for sepsis, fever, antibiotic management. HISTORY OF PRESENT ILLNESS: The patient is a 60-year-old male with multiple medical problems as listed below who was recently admitted for chills. The patient was found to have E. coli bacteremia, however, workup were negative for any particular source. CT scan of abdomen does show probably very mild stranding under appendix. However, the patient did not have any abdominal pain. The patient responded to IV antibiotics and then was changed to Keflex to finish the course however the patient came back due to fever. Infectious Diseases consultation requested for further evaluation of the patient. PAST MEDICAL HISTORY: History of recent E. coli bacteremia and history recent sepsis. MEDICATIONS: As mentioned above. ALLERGIES: No known drug allergies. FAMILY HISTORY: Noncontributory. REVIEW OF SYSTEMS: HEENT: No recent change in vision or hearing. Pulmonary: No cough or shortness of breath. Cardiovascular: No chest pain or palpitation. Gastrointestinal: No nausea or vomiting. Genitourinary: No dysuria. PHYSICAL EXAMINATION: VITAL SIGNS: Temperature 98 degrees, blood pressure 146/78, pulse 86, and T-max 102 degrees. HEENT: Mild pale conjunctivae. No icterus. NECK: No lymphadenopathy. CHEST: Coarse breathing sounds. HEART: S1 and S2. ABDOMEN: Soft, obese, and nontender. EXTREMITIES: No cyanosis. NEUROLOGIC: Awake. LABORATORY AND DIAGNOSTIC DATA: White blood cells 9.3, hemoglobin 11, and platelet 151,00. Urinalysis unremarkable. BUN 14 and creatinine 0.8. ALT, AST, and alkaline phosphatase are unremarkable. CRP 6.5. . Hepatitis panel for A, B and C are negative. HIV is negative. ASSESSMENT: The patient is a 60-year-old male with multiple medical problem who has recently been admitted for Escherichia coli bacteremia, however, no particular source identified. The patient may benefit from repeat CT scan to make sure there is no new finding and we can compare with prior CT. Also, I ordered white blood cell scan that may help to find any source for the patient's bacteremia, this may have been recurrence of prior episodes. PLAN: 1. We will start the patient on IV Zosyn. 2. Monitor CBC. 3. Monitor BMP. 4. Repeat cultures. 5. White blood cell scan. 6. CT of the abdomen with contrast. Based on the patient's clinical course and laboratories, we will do further recommendations. Thank you, Dr. Hartley, for allowing me to participate in the care of this patient. I will follow the patient with you during this hospitalization. Yrui Verma M.D. DR: JOSE A JOB#: [id number] CC:
--- NOTE | 2016-07-29 22:18 | History and Physical Report ---
DATE OF ADMISSION: 07/28/2016 HISTORY OF PRESENT ILLNESS: The patient is a pleasant 60-year-old, male. He has been recently discharged from hospital after the negative workup for the acute infection. He returned again with similar symptoms and signs of systemic infection including high temperature. REVIEW OF SYSTEMS: At the time of evaluation, review of systems are as follows, negative for chest pain. Negative for shortness of breath. Negative for diarrhea, constipation, abdominal pain, nausea, vomiting, or shortness of breath. PAST MEDICAL HISTORY: Diabetes, fever of unknown origin, thrombocytopenia, acute renal failure, . PAST SURGICAL HISTORY: Denies. MEDICATIONS: Metoprolol. ALLERGIES: NKDA. SOCIAL HISTORY: The patient denies history of smoking, alcohol abuse, or drinking. PHYSICAL EXAMINATION: VITAL SIGNS: Temperature 102 degrees, pulse oximetry 98% on room air, pulse rate 80 to 90, pulse oximetry 99% on room air, and blood pressure 150/70. HEAD AND NECK: Atraumatic and normocephalic. CHEST: Clear to auscultation. HEART: S1 and S2. Regular rate and rhythm. ABDOMEN: Soft. No organomegaly. MUSCULOSKELETAL: No gross motor or sensory deficit. NEUROLOGIC: The patient is awake, alert and oriented x3. LABORATORY DATA: WBC 9.2, hemoglobin 11.4, and platelets 144,000. Sodium is 140. CMP is pending. Urinalysis unremarkable. ASSESSMENT: 1. Fever of unknown origin. 2. Diabetes uncontrolled. 3. Hypertension. 4. Thrombocytopenia. 5. Malnourishment, mild. 6. Anemia. 7. Gastrointestinal and deep vein thrombosis prophylaxes. PLAN OF CARE: 1. Infectious Disease, Dr. Verma consulted and notified. 2. Continue with empiric antibiotic regimen including Zosyn. Nolvia Hartley M.D. DR: MARIAN JOB#: [id number] CC:
[2016-07-30] VITALS (14 sets, daily range): BP systolic 107–154; BP diastolic 64–91
--- NOTE | 2016-07-30 00:01 | Cardiology Report ---
APPROVED REPORT EKG Measurement Heart [id number] VA [id number] Normal sinus rhythm Normal ECG
--- NOTE | 2016-07-30 00:18 | Consultation ---
DATE OF CONSULTATION: 07/29/2016 CONSULTING PHYSICIAN: Dl Levy M.D. ATTENDING PHYSICIAN: Nolvia Hartley M.D. REQUESTING PHYSICIAN: Nolvia Hartley M.D. REASON FOR CONSULTATION: Abnormal CAT scan. HISTORY OF PRESENT ILLNESS: This is a 60-year-old male, who presented with weakness and pain in the groin. The patient stated that he started having pain on the lateral side of crease of both groins about a week ago. He was admitted to this hospital with a diagnosis of sepsis and in fact, he had a positive blood culture, but the source was not identified. After that, his fever resolved, and he was discharged to home on p.o. antibiotic, but he returned to the emergency room yesterday for the recurrence of the pain in the lateral side of the crease of both groins and he claims that at home, he did not have this pain and he only had it for a few hours and he came to the hospital, but had informed that he was weak and he could not walk. He stayed in the bed. He absolutely denies any abdominal pain. He states that recently, he vomited once, but now he is not nauseated and does not have any vomiting. Apparently, he had fever and chills at home. In fact, at the hospital, his temperature was 102 degrees. He denies any previous history of similar episode. In the emergency room today, a CAT scan of the abdomen has been performed, which has been interpreted by the radiologist as acute appendicitis, but he has mentioned that the appendix wall is thick and there is some inflammation and fat around the appendix, although CBC is absolutely normal and the patient is not complaining of abdominal pain. PAST MEDICAL HISTORY: He denies allergies, asthma, cardiac, and renal diseases. He has a history of diabetes and hypertension. PAST SURGICAL HISTORY: Surgeries none. MEDICATIONS: Apparently, he only uses insulin. SOCIAL HISTORY: This is a 60-year-old male, who is and father of nine children. He is unemployed and denies smoking or drinking. REVIEW OF SYSTEMS: He complains of weakness and he claims that he cannot walk because of the weakness. PHYSICAL EXAMINATION: GENERAL: The patient appeared to be a well-developed and well-nourished, 60-year-old male, lying on the bed. HEENT: Head is normocephalic and atraumatic. Eyes, pupils are equal, round, and reactive to light. Mouth is clear. NECK: Supple. There is no palpable thyromegaly or adenopathy. CHEST: Clear to auscultation and percussion. HEART: There is no gallop or murmur. S1 and S2 are within normal limits. ABDOMEN: Mildly obese, but soft and not tender. There is no guarding or rebound tenderness and there is absolutely no tenderness and there is no palpable organomegaly. GENITAL: Free of hernia and there is no tenderness, although he complains on admission that he had pain on the crease of both groin, which resolved after a couple of hours after the admission. EXTREMITIES: Within normal limits. LABORATORY AND DIAGNOSTIC DATA: CBC has shown a WBC of 9300 with normal differential. Platelet is 151,000. Chemistry has shown elevated blood glucose of 206. A1c is 12 and CRP is 6.5. The CAT scan of the abdomen, which was performed today, has been compared with the one, which has been performed on 07/23/2016. This has been mentioned as again demonstrating thickening of the appendix, where this is slightly more striking than on prior study and there is a density at the tip of the appendix. There is infiltration of the periappendiceal fat, which is similar to the prior exam and the radiologist has called the acute appendicitis. ASSESSMENT: Fever with unknown origin. RECOMMENDATION: I am not sure that this picture is acute appendicitis, however the patient does not have any abdominal pain. WBC is normal and at least, there are six days interval between two CAT scans and there is almost no change. Besides if it was appendicitis, after six days, he definitely have had either perforation or an abscess, but anyway, I will discuss the CAT scan finding with the radiologist and if the radiologist insisted with the diagnosis of acute appendicitis, he will undergo a laparoscopic appendectomy in addition. Thank you, Dr. Hartley for asking me to participate in the management of this patient. Dl Levy M.D. DR: Jony JOB#: [id number] CC:
[2016-07-30] MEDS: Piperacillin/Tazobactam 3.375 GM in D5W 110 ML IVPB SCH ×3 (01:32→18:25)
[2016-07-30] MEDS: NovoLOG Insulin Flexpen SUBQ SCH ×3 (06:27→17:49)
--- NOTE | 2016-07-30 06:38 | Consultation ---
DATE OF CONSULTATION: NOTE: "POOR AUDIO QUALITY" ENDOCRINOLOGY CONSULTATION: HISTORY OF PRESENT ILLNESS: The patient is a 60-year-old male [facility] quadrant pain PAST MEDICAL HISTORY: . SOCIAL HISTORY: . PHYSICAL EXAMINATION: Paulino Mcgovern M.D. DR: Onur JOB#: [id number] CC:
[2016-07-30 07:19] LABS: TROPONIN I < 0.30 ng/mL (<=0.30)
[2016-07-30] MEDS: Metoprolol 25mg tab ORAL SCH ×2 (09:00→21:05)
--- NOTE | 2016-07-30 09:17 | General Surgery Progress Note ---
General Surgery-Progress Note Objective Last 24 Hour Vital Signs Date Time Temp Pulse Resp B/P Pulse Ox O2 Delivery O2 Flow Rate FiO2 07/30/16 08:23 97.9 63 19 153/81 95 Room Air 07/30/16 04:00 98.6 68 20 149/80 96 Room Air 07/30/16 00:00 96.9 72 18 144/78 96 Room Air 07/29/16 21:00 70 118/64 07/29/16 20:00 97.8 70 17 118/64 100 Room Air 07/29/16 17:00 97.6 72 17 120/64 100 Room Air 07/29/16 12:00 100.0 68 20 156/85 97 Room Air 07/29/16 10:31 75 145/78 I&O Intake and Output 07/29/16 07/30/16 19:00 07:00 Intake Total 240 ml 470.0 ml Output Total 575 ml 400 ml Balance -335 ml 70.0 ml Intake Oral 240 ml 360 ml IV Total 110.0 ml Output Urine Total 575 ml 400 ml # Voids 3 Respiratory: clear Abdomen: soft, flat, non-tender, present bowel sounds Extremities: no edema, no tenderness Laboratory Tests Test 07/30/16 05:10 Lactic Acid Level 1.00 mmol/L (0.66-2.22) Troponin I < 0.30 ng/mL (<=0.30) Assessment Additional Comments R/O appendicitis Plan Additional Comments the CT scans were reviewed with radiologist. He has fecalith at middle of appendix the tip is enlarged and seems inflamed there is stranding of periappendiceal tissue. Over all CAT scan is picture of appendicitis but patient does not have abdominal pain besides this is not picture of one week old appendicitis. regardless as appendix is the only possible source for infection decision was made for NASEEM Traylor Jul 30, 2016 09:17
--- NOTE | 2016-07-30 09:24 | Infectious Diseases Prog Note ---
Assessment/Plan Assessment/Plan A: The patient is a 60-year-old male with Fever, low grade Recurrent Bacteremia BlCx : GNR Hx of +ve Blood culture EColi ? source MRI : No liver abscess probable Appendicitis CT: uncomplicated acute appendicitis, Thrombocytopenia , SP PLAN: Continue the patient on IV Zosyn d# 2 ( SP Cefepime 5 ) Monitor CBC Monitor BMP. Monitor blood culture.( repeat ) DC WBC Scan Plan of Lap Appy as per Sx Subjective Constitutional: Reports: fever Allergies: Coded Allergies: No Known Allergies (Unverified , 07/21/16) Objective Vital Signs Last 24 Hour Vital Signs Date Time Temp Pulse Resp B/P Pulse Ox O2 Delivery O2 Flow Rate FiO2 07/30/16 08:23 97.9 63 19 153/81 95 Room Air 07/30/16 04:00 98.6 68 20 149/80 96 Room Air 07/30/16 00:00 96.9 72 18 144/78 96 Room Air 07/29/16 21:00 70 118/64 07/29/16 20:00 97.8 70 17 118/64 100 Room Air 07/29/16 17:00 97.6 72 17 120/64 100 Room Air 07/29/16 12:00 100.0 68 20 156/85 97 Room Air 07/29/16 10:31 75 145/78 Height (Feet): 5 Height (Inches): 7.00 Weight (Pounds): 160 HEENT: anicteric Respiratory/Chest: no respiratory distress Cardiovascular: regularly irregular Abdomen: no organomegaly Microbiology Date/Time Source Procedure Growth Status 07/28/16 15:15 Blood Blood Culture - Preliminary Gram Negative Bacillus 1 Resulted 07/28/16 15:00 Blood Blood Culture - Preliminary NO GROWTH AFTER 24 HOURS Resulted 07/28/16 15:15 Nasal Nares Influenza Types A,B Antigen (BERTHA) - Final Complete Laboratory Tests Test 07/30/16 05:10 Lactic Acid Level 1.00 mmol/L (0.66-2.22) Troponin I < 0.30 ng/mL (<=0.30) Current Medications Medications (Trade) Dose Ordered Sig/Antonio Route PRN Reason Start Time Stop Time Status Last Admin Dose Admin Acetaminophen (Tylenol) 650 mg Q6H PRN ORAL Mild Pain (Pain Scale 1-3) 07/29/16 09:30 08/28/16 09:29 07/30/16 03:49 Dextrose STAT PRN IV Hypoglycemia 07/29/16 09:30 08/28/16 09:29 Insulin Aspart (NovoLOG) BEFORE MEALS AND HS SUBQ 07/29/16 11:30 08/28/16 11:29 07/29/16 21:04 Metoprolol Tartrate (Lopressor) 25 mg Q12HR ORAL 07/29/16 10:00 08/28/16 09:59 07/29/16 10:31 Pantoprazole (Protonix) 40 mg DAILY ORAL 07/29/16 09:30 08/28/16 09:29 07/29/16 10:31 Piperacillin Sod/ Tazobactam Sod 3.375 gm/Dextrose 110 ml @ 27.5 mls/hr Q8HR@0200,1100,1900 IVPB 07/29/16 11:00 08/05/16 10:59 07/30/16 01:32 Potassium Chloride/Dextrose/ Sodium Chloride (KCl/D5 0.45% NS) 1,005 ml @ 100 mls/hr Q10H3M IV 07/30/16 11:00 08/29/16 10:59 NNEKA WHALEY M.D. Jul 30, 2016 09:24
[2016-07-30 10:50] LABS: INR 1.1 (0.9-1.1); PROTHROMBIN TIME 11.3 SEC (9.30-11.50)
[2016-07-30] MEDS: D5 1/2NS w/KCl 20mEq 1,000 ML IV SCH ×2 (10:57→21:06)
[2016-07-30] MEDS ORDERED: Potassium Chloride 10 MEQ in D5 1/2NS 1,000 ML IV SCH (11:00)
[2016-07-30] MEDS ORDERED: Propofol 10mg/ml 20ml IV ONE (11:52)
[2016-07-30] MEDS ORDERED: Bacitracin 50000 Units Vial ONE (11:52)
[2016-07-30] MEDS ORDERED: Bupivacaine 0.25% Inj 30ml INJ ONE (11:52)
[2016-07-30] MEDS ORDERED: LR 1000ml 1,000 ML IVLG SCH (13:08)
--- NOTE | 2016-07-30 13:08 | Anethesia Preoperative Eval ---
Anesthesia Pre-op PMH/ROS General Date of Evaluation: Jul 30, 2016 Time of Evaluation: 13:05 Anesthesiologist: Sathya ASA Score: ASA 3 Mallampati Score Class I : Soft palate, uvula, fauces, pillars visible Class II: Soft palate, uvula, fauces visible Class III: Soft palate, base of uvula visible Class IV: Only hard plate visible Mallampati Classification: Class II Surgeon: Mildred Diagnosis: Acute appendicitis Surgical Procedure: Laparoscopic appendectomy Anesthesia History: none Family History: no anesthesia problems Allergies: Coded Allergies: No Known Allergies (Unverified , 07/21/16) Medications: see eMAR Past Medical History Cardiovascular: Reports: HTN, Denies: CAD, DE, arrhythmia, other, valve dz Pulmonary: Reports: asthma Gastrointestinal/Genitourinary: Reports: GERD, Denies: CRI, ESRD, other 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: Denies: CVA, TIA, dementia, depression/anxiety, other Endocrine: Reports: DM - poorly controled, Denies: hypothyroidism, other, steroids HEENT: Denies: [place] (L), [place] (R), cataract (L), cataract (R), glaucoma, other Hematology/Immune: Denies: DVT, anemia, bleeding disorder, other Musculoskeletal/Integumentary: Denies: DDD, DJD, OA, RA, edema, other PMH Narrative: as above PSxH Narrative: none Anesthesia Pre-op Phys. Exam Physician Exam Last Vital Signs Date Time Temp Pulse Resp B/P Pulse Ox O2 Delivery O2 Flow Rate FiO2 07/30/16 11:56 98.2 63 20 154/88 95 Room Air Constitutional: NAD Neurologic: CN 2-12 intact Cardiovascular: RRR, no M/R/G Respiratory: CTA Gastrointestinal: S/NT/ND Airway Exam Mallampati Score: Class II MO: full Neck: flexible ROM: limited Teeth: missing Dentures: upper Anesthesia Pre-op A/P Labs Coagulation Test 07/30/16 09:45 Prothrombin Time 11.3 SEC (9.30-11.50) Prothromb Time International Ratio 1.1 (0.9-1.1) Activated Partial Thromboplast Time 27 SEC (23-33) Chemistry Test 07/30/16 05:10 Lactic Acid Level 1.00 mmol/L (0.66-2.22) Troponin I < 0.30 ng/mL (<=0.30) Studies Pre-op Studies: EKG - NSR Risk Assessment & Plan Assessment: ASA 3 Plan: GA with ETT Status Change Before Surgery: No Pre-Antibiotics Drug: as scheduled YOLANDA HARRIS M.D. Jul 30, 2016 13:08
[2016-07-30] MEDS ORDERED: DiphenhydrAMINE 50mg/ml Inj IVP PRN (13:15)
[2016-07-30] MEDS ORDERED: Meperidine 25mg/ml Inj IV PRN (13:15)
[2016-07-30] MEDS ORDERED: Hydromorphone 0.5mg/0.5ml inj IVP PRN ×2 (13:15→15:00)
[2016-07-30] MEDS ORDERED: LR 1000ml ONE (13:30)
[2016-07-30] MEDS ORDERED: Midazolam 2mg/2ml Inj ONE (13:30)
[2016-07-30] MEDS ORDERED: Succinylcholine 20mg/ml 10ml vial ONE (13:30)
[2016-07-30] MEDS ORDERED: Ketorolac 30mg Inj ONE (13:30)
[2016-07-30] MEDS ORDERED: Neostigmine 1mg/ml 10ml Inj ONE (13:30)
[2016-07-30] MEDS ORDERED: Sterile Water Irrig 1000ml IRRIG ONE (13:30)
[2016-07-30] MEDS ORDERED: fentaNYL 100 mcg/2 mL IV ONE (13:30)
[2016-07-30] MEDS ORDERED: Glycopyrrolate 0.2mg/ml 1ml Vial ONE (13:30)
[2016-07-30] MEDS ORDERED: Zemuron 50mg/5ml Inj IV ONE (13:30)
[2016-07-30] MEDS ORDERED: NS Irrig 1000ml IRRIG ONE (13:30)
[2016-07-30] MEDS ORDERED: NS Irrig 1000ml ONE (13:30)
--- NOTE | 2016-07-30 13:35 | Pre-Procedure Note/Attestation ---
Pre-Procedure Note/Attestation Complete Prior to Procedure Planned Procedure: not applicable Procedure Narrative: Exploratory Laparoscopy, appendectomy and possible open appendectomy Indications for Procedure Pre-Operative Diagnosis: R/O appendicitis Attestation I attest that I discussed the nature of the procedure; its benefits; risks and complications; and alternatives (and the risks and benefits of such alternatives ), prior to the procedure, with the patient (or the patient's legal sales solutions representative). I attest that, if there was a reasonable possibility of needing a blood transfusion, the patient (or the patient's legal sales solutions representative) was given the [facility] standardized written summary, pursuant to the Kasi [place] Blood Safety Act ([place] Health and Safety Code # 1645, as amended). I attest that I re-evaluated the patient just prior to the surgery and that there has been no change in the patient's H&P, except as documented below: NASEEM PANDEY Jul 30, 2016 13:35
[2016-07-30] MEDS ORDERED: D5 1/2NS w/KCl 20mEq 1,000 ML IV SCH (14:52)
--- NOTE | 2016-07-30 14:52 | Brief Operative Note ---
Immediate Post Operative Note Operative Note Pre-op Diagnosis: R/O appendicitis Procedure: attempted Lap appy, open appendectomy Post-op Diagnosis: Chronic appendicitis ?? Findings: other - see ditation Surgeon: MD Ayala Dry Cure Worker: none Anesthesiologist: Dr. Mcdonnell Anesthesia: general Specimen: yes Complications: none Condition: stable Estimated Blood Loss: minimal Drains: none Implant(s) used?: No NASEEM PANDEY Jul 30, 2016 14:51
[2016-07-30] MEDS ORDERED: HYDROmorphone 1mg/ml Carpuject IVP PRN (15:00)
[2016-07-30] MEDS ORDERED: Metoclopramide 10mg/2ml Inj IVP PRN (15:00)
[2016-07-30] MEDS ORDERED: Acetaminophen 650 MG SUPP RECTAL PRN (15:00)
--- NOTE | 2016-07-30 15:13 | Immediate Post-Op Evaluation ---
Immediate Post-Op Evalulation Immediate Post-Op Evalulation Procedure: Diagnostic laparoscopy, open appendectomy Date of Evaluation: Jul 30, 2016 Time of Evaluation: 15:11 IV Fluids: 800 Blood Products: none Estimated Blood Loss: min Urinary Output: none Blood Pressure Systolic: 131 Blood Pressure Diastolic: 74 Pulse Rate: 66 Respiratory Rate: 20 O2 Sat by Pulse Oximetry: 99 Temperature (Fahrenheit): 97.5 Pain Score (1-10): 2 Nausea: No Vomiting: No Complications none Patient Status: reacts, patent, extubated, none Hydration Status: adequate YOLANDA HARRIS M.D. Jul 30, 2016 15:13
--- NOTE | 2016-07-30 17:03 | General Progress Note ---
Assessment/Plan Status: stable Assessment/Plan 1- FUO 2- Gram Negative bactremia with unknown source 3- Appendicitis- age indeterminant 2- Anemia 3- Thrombocytopenia 4- Gi-DVT prohpylaxia Plan: current empirically abx Status post Appendectomy will follow ID Subjective ROS Limited/Unobtainable: No Constitutional: Reports: weakness HEENT: Reports: no symptoms Cardiovascular: Reports: no symptoms Respiratory: Reports: no symptoms Allergies: Coded Allergies: No Known Allergies (Unverified , 07/21/16) Objective Last 24 Hour Vital Signs Date Time Temp Pulse Resp B/P Pulse Ox O2 Delivery O2 Flow Rate FiO2 07/30/16 16:00 98.3 67 18 154/85 97 07/30/16 15:45 72 17 150/80 96 07/30/16 15:30 69 18 152/82 98 07/30/16 15:20 66 19 146/78 97 07/30/16 15:15 64 17 139/76 100 Simple Mask 6.0 07/30/16 15:13 66 20 99 07/30/16 15:10 67 20 131/74 100 Simple Mask 6.0 07/30/16 15:05 65 15 113/67 100 Simple Mask 6.0 07/30/16 15:00 98.3 66 22 107/64 100 Simple Mask 6.0 07/30/16 11:56 98.2 63 20 154/88 95 Room Air 07/30/16 08:23 97.9 63 19 153/81 95 Room Air 07/30/16 04:00 98.6 68 20 149/80 96 Room Air 07/30/16 00:00 96.9 72 18 144/78 96 Room Air 07/29/16 21:00 70 118/64 07/29/16 20:00 97.8 70 17 118/64 100 Room Air 07/29/16 17:00 97.6 72 17 120/64 100 Room Air Intake and Output 07/29/16 07/30/16 19:00 07:00 Intake Total 240 ml 470.0 ml Output Total 575 ml 400 ml Balance -335 ml 70.0 ml Intake Oral 240 ml 360 ml IV Total 110.0 ml Output Urine Total 575 ml 400 ml # Voids 3 Laboratory Tests 07/30/16 05:10: Lactic Acid Level 1.00, Troponin I < 0.30 07/30/16 09:45: Prothrombin Time 11.3, Prothromb Time International Ratio 1.1, Activated Partial Thromboplast Time 27 Height (Feet): 5 Height (Inches): 7.00 Weight (Pounds): 160 General Appearance: no apparent distress EENT: PERRL/EOMI Neck: supple Cardiovascular: normal rate Respiratory/Chest: lungs clear Abdomen: soft Extremities: non-tender Neurologic: oriented x 3 Nolvia Hartley MD Jul 30, 2016 17:03
[2016-07-30] MEDS ORDERED: Piperacillin/Tazobactam 3.375 GM in D5W 110 ML IVPB SCH (22:00)
--- NOTE | 2016-07-30 22:58 | Operative Note - Dictated ---
DATE OF OPERATION: 07/30/2016 PREOPERATIVE DIAGNOSIS: Rule out appendicitis. POSTOPERATIVE DIAGNOSIS: Possible chronic appendicitis. OPERATIONS: 1. Attempted laparoscopic appendectomy. 2. Open appendectomy. COMPLICATIONS: None. SURGEON: Dl Levy M.D. TIRE FABRICATOR: None. ANESTHESIA: General with endotracheal tube. ANESTHESIOLOGIST: Gage Mcdonnell M.D. INDICATION: This is a 60-year-old male, who presented with weakness and fever. The patient was admitted to our hospital about 10 days ago with a diagnosis of sepsis. A workup was performed and he was placed on antibiotic. The fever defervesced and he was discharged home. During that admission, he had a CAT scan, which was interpreted as possible acute appendicitis. The patient returned to the emergency room yesterday complaining of weakness, fever, chills and even pain in both groins. He denied any abdominal pain. He denied nausea or vomiting. Physical examination failed to show tenderness of the abdomen. CBC showed a WBC of 9200 with a slight left shift. A CAT scan of the abdomen again was interpreted as acute appendicitis. I reviewed the CAT scan with the radiologist who strongly felt that the patient has appendicitis despite of not having pain and normal WBC. On the CAT scan, the tip of the appendix was inflamed. The patient had a fecalith and there was extensive inflammatory process of the periappendiceal area. Although, I was almost sure that the patient did not have an appendicitis, but as that was the only source for possible sepsis and fever, the decision was made to perform an appendectomy to clear up this finding and if there was no appendicitis then the patient can be focused in looking for other causes of the sepsis, which could not be found on him. I explained the situation to the patient and I explained to him that I strongly feel that he does not have appendicitis, but to make sure he will be scheduled for appendectomy. He understood and agreed. DESCRIPTION OF PROCEDURE: The patient was placed supine on the operating table and after general anesthesia with endotracheal tube, the abdomen was properly prepped and draped. A small incision was made above the umbilicus through which a Veress needle was introduced into the intraperitoneal cavity. This cavity was insufflated up to 15 mmHg. The Veress needle was removed and a 5 mm trocar was placed in the intraperitoneal cavity through the incision above the umbilicus. The laparoscope and camera was introduced into the intraperitoneal cavity through the trocar above the umbilicus. Under direct vision, a 5 mm trocar was placed in the suprapubic area and a 12 mm trocar was placed at the left lower quadrant of the abdomen. Initially, a rapid exploration was performed, which showed that the diaphragms were normal. The part of the stomach, which was seen was normal. The liver was normal. Gallbladder was completely covered with omentum. The bowels were covered with omentum. There was no fluid in the intra-abdominal cavity. The exploration of the right lower quadrant cavity was performed and the cecum was identified. An exploration was performed and finally the base of the appendix was identified. The base of the appendix, I had seen that the appendix was retrocecal. The base of the appendix was grasped and I tried to dissect the appendix, but the patient had extensive hard adhesions and it seemed that he has had episode of the appendicitis, which has resolved as the patient had extensive and hard adhesion in this area. Beside the appendix was seemed to be hard, I tried to dissect the appendix, but I was unsuccessful. Beside, I was afraid that might perforate the cecum, so the decision was made to perform an open appendectomy. The trocars were removed and a transverse was given at the right lower quadrant. It was carried sharply through the subcutaneous tissue. The aponeurosis of the external oblique was opened up along the fibers and the muscles were split. The peritoneum was incised and the intraperitoneal cavity was entered. The cecum was identified and we tried to deliver in the wound, but cecum had adhesions to the posterior abdominal wall. The base of the appendix, which was diagnosed before was grasped and exploration was performed. It was obvious that the appendix was retrocecal and it was completely imbedded in the extensive adhesions. The base of the appendix was isolated and then it was ligated with a 0 Vicryl and was transected. The next step, gradually the dissection was performed and the adhesions and the mesoappendix were ligated with the hemoclips and were transected. Finally, the full length of the appendix was removed. The appendix did not have acute inflammation, but it was hard and it seemed that the patient has had acute appendicitis and maybe it can be called chronic appendicitis at this point. The bleeding points were controlled. The area was irrigated with antibiotic solution. The incision was approximated with a running suture of 0 Vicryl for peritoneum and posterior fascia. The muscles were approximated with a couple of sutures of 0 Vicryl and the aponeurosis of the external oblique was approximated with running suture of 0 Vicryl. The subcutaneous tissue was approximated in two layers with 3-0 plain catgut and the skin incisions were approximated with multiple skin morris. The incisions were infiltrated with total of 50 mL of Marcaine 0.25%. The patient tolerated the procedure very well and was transferred to recovery room in stable condition and extubated. The sponge and needle counts were correct. Estimated blood loss was 10 mL. The condition of the patient at the end of the procedure is stable. Dl Levy M.D. DR: CEDRIC JOB#: [id number] CC: CHERELLE
[2016-07-31] VITALS: BP 147/80
[2016-07-31] MEDS ORDERED: NovoLOG Insulin Flexpen SUBQ SCH
[2016-07-31] MEDS: NovoLOG Insulin Flexpen SUBQ SCH ×5 (01:09→20:09)
[2016-07-31] MEDS: Piperacillin/Tazobactam 3.375 GM in D5W 110 ML IVPB SCH ×2 (02:45→10:35)
--- NOTE | 2016-07-31 02:58 | Geriatric Medicine Prog Note ---
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 Paulino Mcgovern M.D. DR: MAT JOB#: [id number] CC:
[2016-07-31 04:00] VITALS: BP 153/87
[2016-07-31] MEDS: D5 1/2NS w/KCl 20mEq 1,000 ML IV SCH ×3 (07:00→18:51)
[2016-07-31 07:42] LABS: BASOPHILS % (AUTO) 0.4 % (0.0-2.0); EOSINOPHILS % (AUTO) 1.1 % (0.0-3.0); LYMPHOCYTES % (AUTO) 16.2 % (20.0-45.0); MEAN CORPUSCULAR HEMOGLOBIN 30.9 PG (27.0-31.0); MEAN CORPUSCULAR VOLUME 91 FL (80-99); MEAN PLATELET VOLUME 11.2 FL (6.5-10.1); MONOCYTES % (AUTO) 7.4 % (1.0-10.0); NEUTROPHILS % (AUTO) 74.9 % (45.0-75.0); PLATELET COUNT 174 K/UL (150-450); RED CELL DISTRIBUTION WIDTH 11.7 % (11.6-14.8); WHITE BLOOD COUNT 9.7 K/UL (4.8-10.8)
[2016-07-31 07:53] LABS: ANION GAP 13 (5-15); CALCIUM 8.2 mg/dL (8.6-10.2); CARBON DIOXIDE 27 mEQ/L (20-30); CHLORIDE 97 mEQ/L (98-107); CREATININE 0.9 mg/dL (0.7-1.2); GLOMERULAR FILTRATION RATE > 60 mL/min (>60); HEMOLYSIS 18; POTASSIUM 3.7 mEQ/L (3.4-4.9); SODIUM 137 mEQ/L (135-145)
[2016-07-31 07:58] VITALS: BP 142/82
[2016-07-31] MEDS: Pantoprazole Inj IVP SCH (08:46)
[2016-07-31] MEDS: Metoprolol 25mg tab ORAL SCH ×2 (08:46→20:48)
[2016-07-31] MEDS: Enoxaparin 40mg Inj SUBQ SCH (08:47)
--- NOTE | 2016-07-31 10:14 | 48 Hour Post Anesthesia Eval ---
Post Anesthesia Evaluation Procedure: Diagnostic laparoscopy, open appendectomy Date of Evaluation: Jul 31, 2016 Time of Evaluation: 10:13 Blood Pressure Systolic: 140 0: 75 Pulse Rate: 66 Respiratory Rate: 20 Temperature (Fahrenheit): 98 O2 Sat by Pulse Oximetry: 97 Airway: patent Nausea: No Vomiting: No Pain Intensity: 2 Hydration Status: adequate Cardiopulmonary Status: Stable Mental Status/LOC: patient returned to baseline Follow-up Care/Observations: na Post-Anesthesia Complications: na Follow-up care needed: N/A SLEINA BRANDON M.D. Jul 31, 2016 10:14
[2016-07-31] MEDS ORDERED: Tubing IV Secondary IV ONE (10:32)
[2016-07-31] MEDS ORDERED: NS 275ml ONE (10:32)
--- NOTE | 2016-07-31 10:51 | General Progress Note ---
Assessment/Plan Assessment/Plan 1- FUO: 2- Gram Negative bacteremia: Definite source remains open for discussion 3- Appendicitis- age indeterminant 2- Anemia 3- Thrombocytopenia 4- Gi-DVT prohpylaxia Plan: Afebrile for last 48 hours current empirically abx Status post Appendectomy Subjective ROS Limited/Unobtainable: No Constitutional: Reports: no symptoms HEENT: Reports: no symptoms Cardiovascular: Reports: no symptoms Allergies: Coded Allergies: No Known Allergies (Unverified , 07/21/16) Objective Last 24 Hour Vital Signs Date Time Temp Pulse Resp B/P Pulse Ox O2 Delivery O2 Flow Rate FiO2 07/31/16 10:14 66 20 97 07/31/16 08:46 66 142/82 07/31/16 07:58 97.7 66 20 142/82 97 Room Air 07/31/16 04:00 97.0 66 18 153/87 96 Room Air 07/31/16 00:00 98.1 68 18 147/80 96 Room Air 07/30/16 21:05 69 141/78 07/30/16 19:00 97.5 66 20 140/75 94 Room Air 07/30/16 17:00 97.7 69 18 141/78 07/30/16 16:00 98.3 67 18 154/85 97 07/30/16 16:00 97.7 68 20 153/91 96 Room Air 07/30/16 15:45 72 17 150/80 96 07/30/16 15:30 69 18 152/82 98 07/30/16 15:20 66 19 146/78 97 07/30/16 15:15 64 17 139/76 100 Simple Mask 6.0 07/30/16 15:13 66 20 99 07/30/16 15:10 67 20 131/74 100 Simple Mask 6.0 07/30/16 15:05 65 15 113/67 100 Simple Mask 6.0 07/30/16 15:00 98.3 66 22 107/64 100 Simple Mask 6.0 07/30/16 11:56 98.2 63 20 154/88 95 Room Air Intake and Output 07/30/16 07/31/16 19:00 07:00 Intake Total 100 ml 1020.0 ml Output Total 300 ml 250 ml Balance -200 ml 770.0 ml Intake Oral 0 ml IV Total 100 ml 1020.0 ml Output Urine Total 300 ml 250 ml Estimated Blood Loss 0 ml # Voids 5 Laboratory Tests 07/31/16 06:05: White Blood Count 9.7, Red Blood Count 3.50L, Hemoglobin 10.8L, Hematocrit 31.9L , Mean Corpuscular Volume 91, Mean Corpuscular Hemoglobin 30.9, Mean Corpuscular Hemoglobin Concent 34.0, Red Cell Distribution Width 11.7, Platelet Count 174, Mean Platelet Volume 11.2H, Neutrophils (%) (Auto) 74.9, Lymphocytes (%) (Auto) 16.2L, Monocytes (%) (Auto) 7.4, Eosinophils (%) (Auto) 1.1, Basophils (%) (Auto) 0.4, Sodium Level 137, Potassium Level 3.7, Chloride Level 97L, Carbon Dioxide Level 27, Anion Gap 13, Blood Urea Nitrogen 16, Creatinine 0.9, Estimat Glomerular Filtration Rate > 60, Glucose Level 241H, Calcium Level 8.2L Height (Feet): 5 Height (Inches): 7.00 Weight (Pounds): 160 General Appearance: no apparent distress EENT: PERRL/EOMI Neck: supple Cardiovascular: normal rate Respiratory/Chest: lungs clear Abdomen: soft Extremities: non-tender Neurologic: oriented x 3 Nolvia Hartley MD Jul 31, 2016 10:51
[2016-07-31 12:01] VITALS: BP 150/83
--- NOTE | 2016-07-31 12:38 | General Surgery Progress Note ---
General Surgery-Progress Note Subjective Procedure Performed attempted Lap appy, open appendectomy Objective Last 24 Hour Vital Signs Date Time Temp Pulse Resp B/P Pulse Ox O2 Delivery O2 Flow Rate FiO2 07/31/16 12:01 97.9 66 19 150/83 96 Room Air 07/31/16 10:14 66 20 97 07/31/16 08:46 66 142/82 07/31/16 07:58 97.7 66 20 142/82 97 Room Air 07/31/16 04:00 97.0 66 18 153/87 96 Room Air 07/31/16 00:00 98.1 68 18 147/80 96 Room Air 07/30/16 21:05 69 141/78 07/30/16 19:00 97.5 66 20 140/75 94 Room Air 07/30/16 17:00 97.7 69 18 141/78 07/30/16 16:00 98.3 67 18 154/85 97 07/30/16 16:00 97.7 68 20 153/91 96 Room Air 07/30/16 15:45 72 17 150/80 96 07/30/16 15:30 69 18 152/82 98 07/30/16 15:20 66 19 146/78 97 07/30/16 15:15 64 17 139/76 100 Simple Mask 6.0 07/30/16 15:13 66 20 99 07/30/16 15:10 67 20 131/74 100 Simple Mask 6.0 07/30/16 15:05 65 15 113/67 100 Simple Mask 6.0 07/30/16 15:00 98.3 66 22 107/64 100 Simple Mask 6.0 I&O Intake and Output 07/30/16 07/31/16 19:00 07:00 Intake Total 100 ml 1020.0 ml Output Total 300 ml 250 ml Balance -200 ml 770.0 ml Intake Oral 0 ml IV Total 100 ml 1020.0 ml Output Urine Total 300 ml 250 ml Estimated Blood Loss 0 ml # Voids 5 Respiratory: clear Abdomen: soft, flat, non-tender, present bowel sounds Extremities: no tenderness Laboratory Tests Test 07/31/16 06:05 White Blood Count 9.7 K/UL (4.8-10.8) Red Blood Count 3.50 M/UL (4.70-6.10) L Hemoglobin 10.8 G/DL (14.2-18.0) L Hematocrit 31.9 % (42.0-52.0) L Mean Corpuscular Volume 91 FL (80-99) Mean Corpuscular Hemoglobin 30.9 PG (27.0-31.0) Mean Corpuscular Hemoglobin Concent 34.0 G/DL (32.0-36.0) Red Cell Distribution Width 11.7 % (11.6-14.8) Platelet Count 174 K/UL (150-450) Mean Platelet Volume 11.2 FL (6.5-10.1) H Neutrophils (%) (Auto) 74.9 % (45.0-75.0) Lymphocytes (%) (Auto) 16.2 % (20.0-45.0) L Monocytes (%) (Auto) 7.4 % (1.0-10.0) Eosinophils (%) (Auto) 1.1 % (0.0-3.0) Basophils (%) (Auto) 0.4 % (0.0-2.0) Sodium Level 137 mEQ/L (135-145) Potassium Level 3.7 mEQ/L (3.4-4.9) Chloride Level 97 mEQ/L (98-107) L Carbon Dioxide Level 27 mEQ/L (20-30) Anion Gap 13 (5-15) Blood Urea Nitrogen 16 mg/dL (7-23) Creatinine 0.9 mg/dL (0.7-1.2) Estimat Glomerular Filtration Rate > 60 mL/min (>60) Glucose Level 241 mg/dL (74-106) H Calcium Level 8.2 mg/dL (8.6-10.2) L Assessment Post-op Diagnosis Chronic appendicitis ?? Plan Additional Comments Clear liquid diet NASEEM PANDEY Jul 31, 2016 12:38
[2016-07-31 15:58] VITALS: BP 149/75
[2016-07-31] MEDS: Piperacillin/Tazobactam 3.375 GM in NS 110 ML IVPB SCH (18:51)
--- NOTE | 2016-07-31 19:15 | Infectious Diseases Prog Note ---
Assessment/Plan Assessment/Plan A: The patient is a 60-year-old male with Fever, low grade Recurrent Bacteremia BlCx : EColi Hx of +ve Blood culture EColi source : Chronic appendicitis ?? MRI : No liver abscess probable Ch Appendicitis SP open Sx CT: uncomplicated acute appendicitis, Thrombocytopenia , SP PLAN: Continue the patient on IV Zosyn d# 3 / 10 ( SP Cefepime 5 ) Monitor CBC Monitor BMP. Monitor blood culture.( repeat ) in AM Subjective Constitutional: Denies: anorexia, chills, drenching sweats, fatigue, fever, no symptoms, other Allergies: Coded Allergies: No Known Allergies (Unverified , 07/21/16) Objective Vital Signs Last 24 Hour Vital Signs Date Time Temp Pulse Resp B/P Pulse Ox O2 Delivery O2 Flow Rate FiO2 07/31/16 16:55 99.3 07/31/16 16:20 99.3 07/31/16 15:58 100.2 69 17 149/75 96 Room Air 07/31/16 12:01 97.9 66 19 150/83 96 Room Air 07/31/16 10:14 66 20 97 07/31/16 08:46 66 142/82 07/31/16 07:58 97.7 66 20 142/82 97 Room Air 07/31/16 04:00 97.0 66 18 153/87 96 Room Air 07/31/16 00:00 98.1 68 18 147/80 96 Room Air 07/30/16 21:05 69 141/78 Height (Feet): 5 Height (Inches): 7.00 Weight (Pounds): 160 Cardiovascular: regularly irregular Abdomen: no mass Microbiology Date/Time Source Procedure Growth Status 07/29/16 16:00 Blood Blood Culture - Preliminary Gram Negative Bacillus 1 Resulted 07/29/16 15:45 Blood Blood Culture - Preliminary NO GROWTH AFTER 24 HOURS Resulted Laboratory Tests Test 07/31/16 06:05 White Blood Count 9.7 K/UL (4.8-10.8) Red Blood Count 3.50 M/UL (4.70-6.10) L Hemoglobin 10.8 G/DL (14.2-18.0) L Hematocrit 31.9 % (42.0-52.0) L Mean Corpuscular Volume 91 FL (80-99) Mean Corpuscular Hemoglobin 30.9 PG (27.0-31.0) Mean Corpuscular Hemoglobin Concent 34.0 G/DL (32.0-36.0) Red Cell Distribution Width 11.7 % (11.6-14.8) Platelet Count 174 K/UL (150-450) Mean Platelet Volume 11.2 FL (6.5-10.1) H Neutrophils (%) (Auto) 74.9 % (45.0-75.0) Lymphocytes (%) (Auto) 16.2 % (20.0-45.0) L Monocytes (%) (Auto) 7.4 % (1.0-10.0) Eosinophils (%) (Auto) 1.1 % (0.0-3.0) Basophils (%) (Auto) 0.4 % (0.0-2.0) Sodium Level 137 mEQ/L (135-145) Potassium Level 3.7 mEQ/L (3.4-4.9) Chloride Level 97 mEQ/L (98-107) L Carbon Dioxide Level 27 mEQ/L (20-30) Anion Gap 13 (5-15) Blood Urea Nitrogen 16 mg/dL (7-23) Creatinine 0.9 mg/dL (0.7-1.2) Estimat Glomerular Filtration Rate > 60 mL/min (>60) Glucose Level 241 mg/dL (74-106) H Calcium Level 8.2 mg/dL (8.6-10.2) L Current Medications Medications (Trade) Dose Ordered Sig/Antonio Route PRN Reason Start Time Stop Time Status Last Admin Dose Admin Acetaminophen (Tylenol) 650 mg Q4H PRN RECTAL FEVER 07/30/16 15:00 08/29/16 14:59 Acetaminophen 650 mg 650 mg Q6H PRN ORAL Mild Pain (Pain Scale 1-3) 07/29/16 09:30 08/28/16 09:29 07/30/16 03:49 Dextrose STAT PRN IV Hypoglycemia 07/31/16 01:00 08/30/16 00:59 Dextrose/ Electrolytes (D5 0.45%NS W/ KCl 20mEq) 1,000 ml @ 100 mls/hr Q10H IV 07/30/16 11:00 08/29/16 10:59 07/31/16 18:51 Enoxaparin Sodium (Lovenox) 40 mg DAILY SUBQ 07/31/16 09:00 08/30/16 08:59 07/31/16 08:47 Hydromorphone HCl (Dilaudid) 0.5 mg Q3H PRN IVP Pain Score 1-3 07/30/16 15:00 08/06/16 14:59 Hydromorphone HCl (Dilaudid) 1 mg Q3H PRN IVP pain score 4-6 07/30/16 15:00 08/06/16 14:59 Hydromorphone HCl (Dilaudid) 2 mg Q3H PRN IVP pain score 7-10 07/30/16 15:00 08/06/16 14:59 07/31/16 16:25 Insulin Aspart (NovoLOG) AC+HS SUBQ 07/31/16 21:00 08/30/16 20:59 Metoclopramide HCl (Reglan) 10 mg Q6H PRN IVP Nausea & Vomiting 07/30/16 15:00 08/29/16 14:59 Metoprolol Tartrate (Lopressor) 25 mg Q12HR ORAL 07/29/16 10:00 08/28/16 09:59 07/31/16 08:46 Ondansetron HCl (Zofran) 4 mg Q6H PRN IVP Nausea & Vomiting 07/30/16 15:00 08/29/16 14:59 07/30/16 17:56 Pantoprazole (Protonix) 40 mg DAILY IVP 07/31/16 09:00 08/30/16 08:59 07/31/16 08:46 Piperacillin Sod/ Tazobactam Sod/ Sodium Chloride (Zosyn/Sodium Chloride) 110 ml @ 27.5 mls/hr Q8HR@0200,1100,1900 IVPB 07/31/16 19:00 08/05/16 18:59 07/31/16 18:51 NNEKA WHLAEY M.D. Jul 31, 2016 19:15
[2016-07-31 20:00] VITALS: BP 149/78
[2016-08-01] VITALS: BP 139/75
[2016-08-01] MEDS: Piperacillin/Tazobactam 3.375 GM in NS 110 ML IVPB SCH ×3 (02:31→18:29)
[2016-08-01 04:00] VITALS: BP 138/82
[2016-08-01] MEDS: NovoLOG Insulin Flexpen SUBQ SCH ×4 (06:29→21:19)
[2016-08-01 06:52] LABS: ANION GAP 13 (5-15); CALCIUM 8.4 mg/dL (8.6-10.2); CARBON DIOXIDE 26 mEQ/L (20-30); CHLORIDE 96 mEQ/L (98-107); CREATININE 0.8 mg/dL (0.7-1.2); GLOMERULAR FILTRATION RATE > 60 mL/min (>60); HEMOLYSIS 0; POTASSIUM 3.7 mEQ/L (3.4-4.9); SODIUM 135 mEQ/L (135-145)
[2016-08-01 06:54] LABS: BASOPHILS % (AUTO) 0.6 % (0.0-2.0); EOSINOPHILS % (AUTO) 1.1 % (0.0-3.0); LYMPHOCYTES % (AUTO) 17.3 % (20.0-45.0); MEAN CORPUSCULAR HGB CONC 34.3 G/DL (32.0-36.0); MEAN CORPUSCULAR VOLUME 91 FL (80-99); MEAN PLATELET VOLUME 10.7 FL (6.5-10.1); MONOCYTES % (AUTO) 5.5 % (1.0-10.0); NEUTROPHILS % (AUTO) 75.4 % (45.0-75.0); PLATELET COUNT 179 K/UL (150-450); RED BLOOD COUNT 3.53 M/UL (4.70-6.10); RED CELL DISTRIBUTION WIDTH 11.4 % (11.6-14.8); WHITE BLOOD COUNT 9.7 K/UL (4.8-10.8)
[2016-08-01 08:23] VITALS: BP 153/90
[2016-08-01] MEDS: Metoprolol 25mg tab ORAL SCH ×2 (08:39→21:18)
[2016-08-01] MEDS: Enoxaparin 40mg Inj SUBQ SCH (08:39)
[2016-08-01] MEDS: Pantoprazole Inj IVP SCH (08:40)
[2016-08-01] MEDS: D5 1/2NS w/KCl 20mEq 1,000 ML IV SCH ×2 (08:46→22:16)
--- NOTE | 2016-08-01 09:29 | Infectious Diseases Prog Note ---
Assessment/Plan Assessment/Plan A: The patient is a 60-year-old male with Fever, low grade , SP Recurrent Bacteremia BlCx : EColi Hx of +ve Blood culture EColi source : Chronic appendicitis ?? MRI : No liver abscess probable Ch Appendicitis SP open Sx CT: uncomplicated acute appendicitis, Thrombocytopenia , SP PLAN: Continue the patient on IV Zosyn d# 4 / 10 ( SP Cefepime 5 ) Monitor CBC Monitor BMP. Monitor blood culture.( repeat ) in AM Subjective Constitutional: Denies: anorexia, chills, drenching sweats, fatigue, fever, no symptoms, other Allergies: Coded Allergies: No Known Allergies (Unverified , 07/21/16) Objective Vital Signs Last 24 Hour Vital Signs Date Time Temp Pulse Resp B/P Pulse Ox O2 Delivery O2 Flow Rate FiO2 08/01/16 08:39 69 153/90 08/01/16 08:23 99.1 69 19 153/90 96 Room Air 08/01/16 04:00 97.9 67 18 138/82 97 Room Air 08/01/16 00:00 98.2 59 18 139/75 97 Room Air 07/31/16 20:48 67 149/78 07/31/16 20:00 98.1 67 17 149/78 97 Room Air 07/31/16 16:55 99.3 07/31/16 16:20 99.3 07/31/16 15:58 100.2 69 17 149/75 96 Room Air 07/31/16 12:01 97.9 66 19 150/83 96 Room Air 07/31/16 10:14 66 20 97 Height (Feet): 5 Height (Inches): 7.00 Weight (Pounds): 160 HEENT: anicteric Respiratory/Chest: no respiratory distress Cardiovascular: regularly irregular Abdomen: no organomegaly Microbiology Date/Time Source Procedure Growth Status 07/29/16 16:00 Blood Blood Culture - Final Escherichia Coli Complete 07/29/16 15:45 Blood Blood Culture - Preliminary NO GROWTH AFTER 48 HOURS Resulted Laboratory Tests Test 08/01/16 05:10 White Blood Count 9.7 K/UL (4.8-10.8) Red Blood Count 3.53 M/UL (4.70-6.10) L Hemoglobin 11.0 G/DL (14.2-18.0) L Hematocrit 32.0 % (42.0-52.0) L Mean Corpuscular Volume 91 FL (80-99) Mean Corpuscular Hemoglobin 31.0 PG (27.0-31.0) Mean Corpuscular Hemoglobin Concent 34.3 G/DL (32.0-36.0) Red Cell Distribution Width 11.4 % (11.6-14.8) L Platelet Count 179 K/UL (150-450) Mean Platelet Volume 10.7 FL (6.5-10.1) H Neutrophils (%) (Auto) 75.4 % (45.0-75.0) H Lymphocytes (%) (Auto) 17.3 % (20.0-45.0) L Monocytes (%) (Auto) 5.5 % (1.0-10.0) Eosinophils (%) (Auto) 1.1 % (0.0-3.0) Basophils (%) (Auto) 0.6 % (0.0-2.0) Sodium Level 135 mEQ/L (135-145) Potassium Level 3.7 mEQ/L (3.4-4.9) Chloride Level 96 mEQ/L (98-107) L Carbon Dioxide Level 26 mEQ/L (20-30) Anion Gap 13 (5-15) Blood Urea Nitrogen 11 mg/dL (7-23) Creatinine 0.8 mg/dL (0.7-1.2) Estimat Glomerular Filtration Rate > 60 mL/min (>60) Glucose Level 235 mg/dL (74-106) H Calcium Level 8.4 mg/dL (8.6-10.2) L Current Medications Medications (Trade) Dose Ordered Sig/Antonio Route PRN Reason Start Time Stop Time Status Last Admin Dose Admin Acetaminophen (Tylenol) 650 mg Q4H PRN RECTAL FEVER 07/30/16 15:00 08/29/16 14:59 Acetaminophen 650 mg 650 mg Q6H PRN ORAL Mild Pain (Pain Scale 1-3) 07/29/16 09:30 08/28/16 09:29 07/30/16 03:49 Dextrose STAT PRN IV Hypoglycemia 07/31/16 01:00 08/30/16 00:59 Dextrose/ Electrolytes (D5 0.45%NS W/ KCl 20mEq) 1,000 ml @ 100 mls/hr Q10H IV 07/30/16 11:00 08/29/16 10:59 08/01/16 08:46 Enoxaparin Sodium (Lovenox) 40 mg DAILY SUBQ 07/31/16 09:00 08/30/16 08:59 08/01/16 08:39 Hydromorphone HCl (Dilaudid) 0.5 mg Q3H PRN IVP Pain Score 1-3 07/30/16 15:00 08/06/16 14:59 Hydromorphone HCl (Dilaudid) 1 mg Q3H PRN IVP pain score 4-6 07/30/16 15:00 08/06/16 14:59 Hydromorphone HCl (Dilaudid) 2 mg Q3H PRN IVP pain score 7-10 07/30/16 15:00 08/06/16 14:59 07/31/16 16:25 Insulin Aspart (NovoLOG) AC+HS SUBQ 07/31/16 21:00 08/30/16 20:59 08/01/16 06:29 Metoclopramide HCl (Reglan) 10 mg Q6H PRN IVP Nausea & Vomiting 07/30/16 15:00 08/29/16 14:59 Metoprolol Tartrate (Lopressor) 25 mg Q12HR ORAL 07/29/16 10:00 08/28/16 09:59 08/01/16 08:39 Ondansetron HCl (Zofran) 4 mg Q6H PRN IVP Nausea & Vomiting 07/30/16 15:00 08/29/16 14:59 07/30/16 17:56 Pantoprazole (Protonix) 40 mg DAILY IVP 07/31/16 09:00 08/30/16 08:59 08/01/16 08:40 Piperacillin Sod/ Tazobactam Sod/ Sodium Chloride (Zosyn/Sodium Chloride) 110 ml @ 27.5 mls/hr Q8HR@0200,1100,1900 IVPB 07/31/16 19:00 08/05/16 18:59 08/01/16 02:31 NNEKA WHALEY M.D. Aug 01, 2016 09:29
--- NOTE | 2016-08-01 10:03 | General Progress Note ---
Assessment/Plan Status: stable Assessment/Plan 1 Gram Negative bacteremia: Definite source remains open for discussion, likely chronic appendicitis 3- Appendicitis- age indeterminant, post urgent-inpatient Resection 2- Anemia 3- Thrombocytopenia 4- Gi-DVT prohpylaxia Plan: Afebrile for last 72 hours current empirically abx Once a negative blood culture result , then may continue empirical abx as an outpatient Subjective ROS Limited/Unobtainable: No Constitutional: Reports: weakness HEENT: Reports: no symptoms Cardiovascular: Reports: no symptoms Respiratory: Reports: no symptoms Allergies: Coded Allergies: No Known Allergies (Unverified , 07/21/16) Objective Last 24 Hour Vital Signs Date Time Temp Pulse Resp B/P Pulse Ox O2 Delivery O2 Flow Rate FiO2 08/01/16 08:39 69 153/90 08/01/16 08:23 99.1 69 19 153/90 96 Room Air 08/01/16 04:00 97.9 67 18 138/82 97 Room Air 08/01/16 00:00 98.2 59 18 139/75 97 Room Air 07/31/16 20:48 67 149/78 07/31/16 20:00 98.1 67 17 149/78 97 Room Air 07/31/16 16:55 99.3 07/31/16 16:20 99.3 07/31/16 15:58 100.2 69 17 149/75 96 Room Air 07/31/16 12:01 97.9 66 19 150/83 96 Room Air 07/31/16 10:14 66 20 97 Intake and Output 07/31/16 08/01/16 19:00 07:00 Intake Total 982.5 ml 1577.5 ml Output Total 350 ml 200 ml Balance 632.5 ml 1377.5 ml Intake Oral 0 ml 635 ml IV Total 982.5 ml 942.5 ml Output Urine Total 350 ml 200 ml # Bowel Movements 1 Laboratory Tests 08/01/16 05:10: White Blood Count 9.7, Red Blood Count 3.53L, Hemoglobin 11.0L, Hematocrit 32.0L , Mean Corpuscular Volume 91, Mean Corpuscular Hemoglobin 31.0, Mean Corpuscular Hemoglobin Concent 34.3, Red Cell Distribution Width 11.4L, Platelet Count 179, Mean Platelet Volume 10.7H, Neutrophils (%) (Auto) 75.4H, Lymphocytes (%) (Auto) 17.3L, Monocytes (%) (Auto) 5.5, Eosinophils (%) (Auto) 1.1, Basophils (%) (Auto) 0.6, Sodium Level 135, Potassium Level 3.7, Chloride Level 96L, Carbon Dioxide Level 26, Anion Gap 13, Blood Urea Nitrogen 11, Creatinine 0.8, Estimat Glomerular Filtration Rate > 60, Glucose Level 235H, Calcium Level 8.4L Height (Feet): 5 Height (Inches): 7.00 Weight (Pounds): 160 General Appearance: WD/WN EENT: PERRL/EOMI Neck: supple Cardiovascular: normal rate Respiratory/Chest: lungs clear Abdomen: soft Extremities: non-tender 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
--- NOTE | 2016-08-01 11:33 | General Surgery Progress Note ---
General Surgery-Progress Note Subjective Procedure Performed attempted Lap appy, open appendectomy Symptoms: improved, passing flatus Objective Last 24 Hour Vital Signs Date Time Temp Pulse Resp B/P Pulse Ox O2 Delivery O2 Flow Rate FiO2 08/01/16 08:39 69 153/90 08/01/16 08:23 99.1 69 19 153/90 96 Room Air 08/01/16 04:00 97.9 67 18 138/82 97 Room Air 08/01/16 00:00 98.2 59 18 139/75 97 Room Air 07/31/16 20:48 67 149/78 07/31/16 20:00 98.1 67 17 149/78 97 Room Air 07/31/16 16:55 99.3 07/31/16 16:20 99.3 07/31/16 15:58 100.2 69 17 149/75 96 Room Air 07/31/16 12:01 97.9 66 19 150/83 96 Room Air I&O Intake and Output 07/31/16 08/01/16 18:59 06:59 Intake Total 982.5 ml 1577.5 ml Output Total 350 ml 200 ml Balance 632.5 ml 1377.5 ml Intake Oral 0 ml 635 ml IV Total 982.5 ml 942.5 ml Output Urine Total 350 ml 200 ml # Bowel Movements 1 Respiratory: clear Abdomen: soft, flat, non-tender, present bowel sounds Extremities: no tenderness Laboratory Tests Test 08/01/16 05:10 White Blood Count 9.7 K/UL (4.8-10.8) Red Blood Count 3.53 M/UL (4.70-6.10) L Hemoglobin 11.0 G/DL (14.2-18.0) L Hematocrit 32.0 % (42.0-52.0) L Mean Corpuscular Volume 91 FL (80-99) Mean Corpuscular Hemoglobin 31.0 PG (27.0-31.0) Mean Corpuscular Hemoglobin Concent 34.3 G/DL (32.0-36.0) Red Cell Distribution Width 11.4 % (11.6-14.8) L Platelet Count 179 K/UL (150-450) Mean Platelet Volume 10.7 FL (6.5-10.1) H Neutrophils (%) (Auto) 75.4 % (45.0-75.0) H Lymphocytes (%) (Auto) 17.3 % (20.0-45.0) L Monocytes (%) (Auto) 5.5 % (1.0-10.0) Eosinophils (%) (Auto) 1.1 % (0.0-3.0) Basophils (%) (Auto) 0.6 % (0.0-2.0) Sodium Level 135 mEQ/L (135-145) Potassium Level 3.7 mEQ/L (3.4-4.9) Chloride Level 96 mEQ/L (98-107) L Carbon Dioxide Level 26 mEQ/L (20-30) Anion Gap 13 (5-15) Blood Urea Nitrogen 11 mg/dL (7-23) Creatinine 0.8 mg/dL (0.7-1.2) Estimat Glomerular Filtration Rate > 60 mL/min (>60) Glucose Level 235 mg/dL (74-106) H Calcium Level 8.4 mg/dL (8.6-10.2) L Assessment Post-op Diagnosis Chronic appendicitis ?? Plan Additional Comments continue as before NASEEM PANDEY Aug 01, 2016 11:33
[2016-08-01 11:56] VITALS: BP 153/87
[2016-08-01 16:00] VITALS: BP 149/81
[2016-08-01 20:00] VITALS: BP 155/84
[2016-08-02] VITALS: BP 156/90
[2016-08-02] MEDS: Piperacillin/Tazobactam 3.375 GM in NS 110 ML IVPB SCH ×3 (02:14→17:58)
[2016-08-02 04:00] VITALS: BP 154/80
[2016-08-02] MEDS: NovoLOG Insulin Flexpen SUBQ SCH ×4 (06:14→20:01)
--- NOTE | 2016-08-02 07:28 | Geriatric Medicine Prog Note ---
DATE: 08/01/2016 SUBJECTIVE : The patient OBJECTIVE: Paulino Mcgovern M.D. DR: MAT JOB#: [id number] CC:
[2016-08-02 08:15] VITALS: BP 155/85
[2016-08-02] MEDS: Enoxaparin 40mg Inj SUBQ SCH (08:25)
[2016-08-02] MEDS: Pantoprazole Inj IVP SCH (08:26)
[2016-08-02] MEDS: Metoprolol 25mg tab ORAL SCH ×2 (08:26→20:00)
[2016-08-02] MEDS: D5 1/2NS w/KCl 20mEq 1,000 ML IV SCH (08:27)
[2016-08-02] MEDS: Levemir Flexpen SUBQ SCH ×2 (08:28→17:58)
--- NOTE | 2016-08-02 09:03 | General Progress Note ---
Assessment/Plan Status: stable Assessment/Plan 1 Gram Negative bacteremia: Definite source remains open for discussion, likely chronic appendicitis 3- Appendicitis- age indeterminant, post urgent-inpatient Resection 2- Anemia 3- Thrombocytopenia 4- Gi-DVT prohpylaxia Plan: Afebrile for last 96 hours current empirically abx Once a negative blood culture result , then may continue empirical abx as an outpatient Subjective ROS Limited/Unobtainable: No Constitutional: Reports: no symptoms HEENT: Reports: no symptoms Cardiovascular: Reports: no symptoms Respiratory: Reports: no symptoms Allergies: Coded Allergies: No Known Allergies (Unverified , 07/21/16) Objective Last 24 Hour Vital Signs Date Time Temp Pulse Resp B/P Pulse Ox O2 Delivery O2 Flow Rate FiO2 08/02/16 08:26 68 149/79 08/02/16 08:15 98.6 68 23 155/85 96 Room Air 08/02/16 04:00 98.4 71 20 154/80 96 Room Air 08/02/16 00:00 98.8 67 20 156/90 97 Room Air 08/01/16 21:18 68 155/84 08/01/16 20:00 97.9 68 18 155/84 98 Room Air 08/01/16 16:00 97.9 63 18 149/81 98 Room Air 08/01/16 11:56 98.6 66 20 153/87 95 Room Air Intake and Output 08/01/16 08/02/16 19:00 07:00 Intake Total 1432.5 ml 1745.0 ml Output Total 420 ml 1450 ml Balance 1012.5 ml 295.0 ml Intake Oral 450 ml 680 ml IV Total 982.5 ml 1065.0 ml Output Urine Total 420 ml 1450 ml # Voids 3 Height (Feet): 5 Height (Inches): 7.00 Weight (Pounds): 160 General Appearance: WD/WN EENT: PERRL/EOMI Neck: supple Cardiovascular: normal rate Respiratory/Chest: lungs clear Abdomen: soft Extremities: non-tender Neurologic: oriented x 3 Nolvia Hartley MD Aug 02, 2016 09:03
[2016-08-02 12:01] VITALS: BP 106/83
--- NOTE | 2016-08-02 14:42 | General Surgery Progress Note ---
General Surgery-Progress Note Subjective Procedure Performed attempted Lap appy, open appendectomy Objective Last 24 Hour Vital Signs Date Time Temp Pulse Resp B/P Pulse Ox O2 Delivery O2 Flow Rate FiO2 08/02/16 12:01 97.6 71 22 106/83 99 Room Air 08/02/16 08:26 68 149/79 08/02/16 08:15 98.6 68 23 155/85 96 Room Air 08/02/16 04:00 98.4 71 20 154/80 96 Room Air 08/02/16 00:00 98.8 67 20 156/90 97 Room Air 08/01/16 21:18 68 155/84 08/01/16 20:00 97.9 68 18 155/84 98 Room Air 08/01/16 16:00 97.9 63 18 149/81 98 Room Air I&O Intake and Output 08/01/16 08/02/16 19:00 07:00 Intake Total 1432.5 ml 1745.0 ml Output Total 420 ml 1450 ml Balance 1012.5 ml 295.0 ml Intake Oral 450 ml 680 ml IV Total 982.5 ml 1065.0 ml Output Urine Total 420 ml 1450 ml # Voids 3 Dressing: dry Drains: none Respiratory: clear Abdomen: soft, flat, non-tender, present bowel sounds Extremities: no tenderness Assessment Post-op Diagnosis Chronic appendicitis ?? Additional Comments Sepsis Plan Additional Comments peer pcp NASEEM PANDEY Aug 02, 2016 14:42
[2016-08-02 16:00] VITALS: BP 155/87
[2016-08-02 20:00] VITALS: BP 150/82
[2016-08-02] MEDS: Miralax 17gm pkt ORAL SCH (20:00)
[2016-08-03] VITALS (8 sets, daily range): BP systolic 149–172; BP diastolic 69–95
[2016-08-03] MEDS: Piperacillin/Tazobactam 3.375 GM in NS 110 ML IVPB SCH ×3 (02:00→18:39)
[2016-08-03] MEDS: NovoLOG Insulin Flexpen SUBQ SCH ×4 (06:34→21:41)
[2016-08-03] MEDS: Metoprolol 25mg tab ORAL SCH ×2 (09:19→21:29)
[2016-08-03] MEDS: Levemir Flexpen SUBQ SCH ×2 (09:21→19:03)
[2016-08-03] MEDS: Enoxaparin 40mg Inj SUBQ SCH (09:22)
--- NOTE | 2016-08-03 09:42 | General Surgery Progress Note ---
General Surgery-Progress Note Subjective Procedure Performed attempted Lap appy, open appendectomy Objective Last 24 Hour Vital Signs Date Time Temp Pulse Resp B/P Pulse Ox O2 Delivery O2 Flow Rate FiO2 08/03/16 09:19 70 160/90 08/03/16 08:58 97.0 70 15 160/90 97 Room Air 08/03/16 04:00 97.9 68 18 149/90 97 08/03/16 01:51 159/69 08/03/16 00:40 172/84 08/03/16 00:00 96.8 68 18 160/88 97 Room Air 08/02/16 20:00 72 155/87 08/02/16 20:00 99.0 71 16 150/82 95 Room Air 08/02/16 16:00 98.7 72 18 155/87 Room Air 08/02/16 12:01 97.6 71 22 106/83 99 Room Air I&O Intake and Output 08/02/16 08/03/16 19:00 07:00 Intake Total 1430.0 ml 572.5 ml Output Total 1700 ml Balance 1430.0 ml -1127.5 ml Intake Oral 720 ml 380 ml IV Total 710.0 ml 192.5 ml Output Urine Total 1700 ml # Voids 2 3 # Bowel Movements 1 Respiratory: clear Abdomen: soft, flat, non-tender, present bowel sounds Extremities: no tenderness Assessment Post-op Diagnosis Chronic appendicitis ?? Additional Comments Sepsis Plan Additional Comments continue as before NASEEM PANDEY Aug 03, 2016 09:42
--- NOTE | 2016-08-03 10:40 | Infectious Diseases Prog Note ---
Assessment/Plan Assessment/Plan A: The patient is a 60-year-old male with Fever, low grade , SP Recurrent Bacteremia BlCx : EColi Hx of +ve Blood culture EColi source : Chronic appendicitis ?? MRI : No liver abscess probable Ch Appendicitis SP open Sx CT: uncomplicated acute appendicitis, Thrombocytopenia , SP PLAN: Continue the patient on IV Zosyn d# 6 / 14 ( SP Cefepime 5 ) Monitor CBC Monitor BMP. Monitor blood culture.( repeat in AM ) 2D Echo ro Veg Not ready for DC yet Subjective Constitutional: Denies: anorexia, chills, drenching sweats, fatigue, fever, no symptoms, other Allergies: Coded Allergies: No Known Allergies (Unverified , 07/21/16) Objective Vital Signs Last 24 Hour Vital Signs Date Time Temp Pulse Resp B/P Pulse Ox O2 Delivery O2 Flow Rate FiO2 08/03/16 09:19 70 160/90 08/03/16 08:58 97.0 70 15 160/90 97 Room Air 08/03/16 04:00 97.9 68 18 149/90 97 08/03/16 01:51 159/69 08/03/16 00:40 172/84 08/03/16 00:00 96.8 68 18 160/88 97 Room Air 08/02/16 20:00 72 155/87 08/02/16 20:00 99.0 71 16 150/82 95 Room Air 08/02/16 16:00 98.7 72 18 155/87 Room Air 08/02/16 12:01 97.6 71 22 106/83 99 Room Air Height (Feet): 5 Height (Inches): 7.00 Weight (Pounds): 160 HEENT: anicteric Respiratory/Chest: normal breath sounds Cardiovascular: normal rate Abdomen: soft, non tender, no organomegaly Microbiology Date/Time Source Procedure Growth Status 08/01/16 05:20 Blood Blood Culture - Preliminary NO GROWTH AFTER 24 HOURS Resulted 08/01/16 05:10 Blood Blood Culture - Preliminary Gram Negative Young Resulted Current Medications Medications (Trade) Dose Ordered Sig/Antonio Route PRN Reason Start Time Stop Time Status Last Admin Dose Admin Acetaminophen (Tylenol) 650 mg Q4H PRN RECTAL FEVER 07/30/16 15:00 08/29/16 14:59 Acetaminophen (Tylenol) 650 mg Q6H PRN ORAL Mild Pain (Pain Scale 1-3) 07/29/16 09:30 08/28/16 09:29 07/30/16 03:49 Dextrose STAT PRN IV Hypoglycemia 07/31/16 01:00 08/30/16 00:59 Enoxaparin Sodium (Lovenox) 40 mg DAILY SUBQ 07/31/16 09:00 08/30/16 08:59 08/03/16 09:22 Hydromorphone HCl (Dilaudid) 0.5 mg Q3H PRN IVP Pain Score 1-3 07/30/16 15:00 08/06/16 14:59 Hydromorphone HCl (Dilaudid) 1 mg Q3H PRN IVP pain score 4-6 07/30/16 15:00 08/06/16 14:59 Hydromorphone HCl (Dilaudid) 2 mg Q3H PRN IVP pain score 7-10 07/30/16 15:00 08/06/16 14:59 08/03/16 00:41 Insulin Aspart (NovoLOG) AC+HS SUBQ 07/31/16 21:00 08/30/16 20:59 08/03/16 06:34 Insulin Detemir (Levemir) 10 units BID SUBQ 08/02/16 09:00 09/01/16 08:59 08/03/16 09:21 Metoclopramide HCl (Reglan) 10 mg Q6H PRN IVP Nausea & Vomiting 07/30/16 15:00 08/29/16 14:59 Metoprolol Tartrate (Lopressor) 25 mg Q12HR ORAL 07/29/16 10:00 08/28/16 09:59 08/03/16 09:19 Ondansetron HCl (Zofran) 4 mg Q6H PRN IVP Nausea & Vomiting 07/30/16 15:00 08/29/16 14:59 07/30/16 17:56 Pantoprazole (Protonix) 40 mg DAILY ORAL 08/03/16 09:00 09/02/16 08:59 08/03/16 09:19 Piperacillin Sod/ Tazobactam Sod/ Sodium Chloride (Zosyn/Sodium Chloride) 110 ml @ 27.5 mls/hr Q8HR@0200,1100,1900 IVPB 07/31/16 19:00 08/05/16 18:59 08/03/16 02:00 Polyethylene Glycol (Miralax) 17 gm BEDTIME ORAL 08/02/16 21:00 09/01/16 20:59 08/02/16 20:00 NNEKA WHALEY M.D. Aug 03, 2016 10:40
[2016-08-03] MEDS ORDERED: NS 275ml ONE (11:09)
[2016-08-03] MEDS ORDERED: Tubing IV Secondary IV ONE (11:09)
--- NOTE | 2016-08-03 12:54 | General Progress Note ---
Assessment/Plan Status: stable Assessment/Plan 1 Gram Negative bacteremia: Definite source remains open for discussion, likely chronic appendicitis 3- Appendicitis- age indeterminant, post urgent-inpatient Resection 2- Anemia 3- Thrombocytopenia 4- Gi-DVT prohpylaxia Plan: Afebrile for last 96 hours current empirically abx Once a negative blood culture result , then may continue empirical abx as an outpatient at discretion of ID service Subjective ROS Limited/Unobtainable: No Constitutional: Reports: no symptoms HEENT: Reports: no symptoms Cardiovascular: Reports: no symptoms Respiratory: Reports: no symptoms Allergies: Coded Allergies: No Known Allergies (Unverified , 07/21/16) Objective Last 24 Hour Vital Signs Date Time Temp Pulse Resp B/P Pulse Ox O2 Delivery O2 Flow Rate FiO2 08/03/16 11:55 98.1 66 14 156/87 98 Room Air 08/03/16 09:19 70 160/90 08/03/16 08:58 97.0 70 15 160/90 97 Room Air 08/03/16 04:00 97.9 68 18 149/90 97 08/03/16 01:51 159/69 08/03/16 00:40 172/84 08/03/16 00:00 96.8 68 18 160/88 97 Room Air 08/02/16 20:00 72 155/87 08/02/16 20:00 99.0 71 16 150/82 95 Room Air 08/02/16 16:00 98.7 72 18 155/87 Room Air Intake and Output 08/02/16 08/03/16 19:00 07:00 Intake Total 1430.0 ml 572.5 ml Output Total 1700 ml Balance 1430.0 ml -1127.5 ml Intake Oral 720 ml 380 ml IV Total 710.0 ml 192.5 ml Output Urine Total 1700 ml # Voids 2 3 # Bowel Movements 1 Height (Feet): 5 Height (Inches): 7.00 Weight (Pounds): 160 General Appearance: no apparent distress EENT: PERRL/EOMI Neck: supple Cardiovascular: normal rate Respiratory/Chest: lungs clear Abdomen: soft Extremities: non-tender 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
[2016-08-03] MEDS: Docusate 250mg cap ORAL PRN (18:38)
[2016-08-03] MEDS ORDERED: Miralax 17gm pkt ORAL SCH (21:00)
[2016-08-03] MEDS: Miralax 17gm pkt ORAL SCH (21:29)
[2016-08-04] VITALS: BP 138/69
[2016-08-04] MEDS: Piperacillin/Tazobactam 3.375 GM in NS 110 ML IVPB SCH ×3 (02:25→18:07)
[2016-08-04 04:00] VITALS: BP 146/78
[2016-08-04] MEDS: NovoLOG Insulin Flexpen SUBQ SCH ×4 (06:06→20:34)
[2016-08-04 08:19] VITALS: BP 148/87
[2016-08-04] MEDS: Metoprolol 25mg tab ORAL SCH ×2 (09:27→20:32)
[2016-08-04] MEDS: Enoxaparin 40mg Inj SUBQ SCH (09:28)
[2016-08-04] MEDS: Levemir Flexpen SUBQ SCH ×2 (09:30→18:14)
--- NOTE | 2016-08-04 10:16 | Infectious Diseases Prog Note ---
Assessment/Plan Assessment/Plan A; E. coli sepsis Appendicitis, chronic DM HPN P; continue Zosyn Subjective ROS Limited/Unobtainable: No Constitutional: Reports: no symptoms Respiratory: Reports: no symptoms Cardiovascular: Reports: no symptoms Gastrointestinal/Abdominal: Reports: no symptoms Genitourinary: Reports: no symptoms Allergies: Coded Allergies: No Known Allergies (Unverified , 07/21/16) Objective Vital Signs Last 24 Hour Vital Signs Date Time Temp Pulse Resp B/P Pulse Ox O2 Delivery O2 Flow Rate FiO2 08/04/16 09:27 77 148/87 08/04/16 08:19 99.1 77 19 148/87 96 Room Air 08/04/16 04:00 99.0 66 18 146/78 96 Room Air 08/04/16 00:00 97.9 65 18 138/69 96 Room Air 08/03/16 22:16 98.1 08/03/16 21:29 72 163/95 08/03/16 19:00 97.3 72 20 163/95 97 Room Air 08/03/16 18:32 170/78 08/03/16 16:00 98.1 64 20 170/78 96 Room Air 08/03/16 11:55 98.1 66 14 156/87 98 Room Air Height (Feet): 5 Height (Inches): 7.00 Weight (Pounds): 160 General Appearance: no acute distress HEENT: mucous membranes moist Respiratory/Chest: lungs clear Cardiovascular: normal rate Abdomen: soft, non tender, other - surgical site clean Extremities: no edema 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: alert, responsive Current Medications Medications (Trade) Dose Ordered Sig/Antonio Route PRN Reason Start Time Stop Time Status Last Admin Dose Admin Acetaminophen (Tylenol) 650 mg Q4H PRN RECTAL FEVER 07/30/16 15:00 08/29/16 14:59 Acetaminophen (Tylenol) 650 mg Q6H PRN ORAL Mild Pain (Pain Scale 1-3) 07/29/16 09:30 08/28/16 09:29 07/30/16 03:49 Clonidine HCl (Catapres) 0.1 mg Q4H PRN ORAL sbp > 160 08/03/16 14:15 09/02/16 14:14 08/03/16 18:32 Dextrose STAT PRN IV Hypoglycemia 07/31/16 01:00 08/30/16 00:59 Docusate Sodium (Colace) 250 mg DAILY PRN ORAL Constipation 08/03/16 16:00 09/02/16 15:59 08/03/16 18:38 Enoxaparin Sodium (Lovenox) 40 mg DAILY SUBQ 07/31/16 09:00 08/30/16 08:59 08/04/16 09:28 Hydromorphone HCl (Dilaudid) 0.5 mg Q3H PRN IVP Pain Score 1-3 07/30/16 15:00 08/06/16 14:59 Hydromorphone HCl (Dilaudid) 1 mg Q3H PRN IVP pain score 4-6 07/30/16 15:00 08/06/16 14:59 Hydromorphone HCl (Dilaudid) 2 mg Q3H PRN IVP pain score 7-10 07/30/16 15:00 08/06/16 14:59 08/03/16 21:46 Insulin Aspart (NovoLOG) AC+HS SUBQ 07/31/16 21:00 08/30/16 20:59 08/04/16 06:06 Insulin Detemir (Levemir) 10 units BID SUBQ 08/02/16 09:00 09/01/16 08:59 08/04/16 09:30 Metoclopramide HCl (Reglan) 10 mg Q6H PRN IVP Nausea & Vomiting 07/30/16 15:00 08/29/16 14:59 Metoprolol Tartrate (Lopressor) 25 mg Q12HR ORAL 07/29/16 10:00 08/28/16 09:59 08/04/16 09:27 Ondansetron HCl (Zofran) 4 mg Q6H PRN IVP Nausea & Vomiting 07/30/16 15:00 08/29/16 14:59 07/30/16 17:56 Pantoprazole (Protonix) 40 mg DAILY ORAL 08/03/16 09:00 09/02/16 08:59 08/04/16 09:27 Piperacillin Sod/ Tazobactam Sod/ Sodium Chloride (Zosyn/Sodium Chloride) 110 ml @ 27.5 mls/hr Q8HR@0200,1100,1900 IVPB 07/31/16 19:00 08/05/16 18:59 08/04/16 02:25 Polyethylene Glycol (Miralax) 17 gm BEDTIME ORAL 08/02/16 21:00 09/01/16 20:59 08/03/16 21:29 WESLEY LUDWIG Aug 04, 2016 10:16
--- NOTE | 2016-08-04 12:34 | General Surgery Progress Note ---
General Surgery-Progress Note Subjective Procedure Performed attempted Lap appy, open appendectomy Symptoms: improved, passing flatus Objective Last 24 Hour Vital Signs Date Time Temp Pulse Resp B/P Pulse Ox O2 Delivery O2 Flow Rate FiO2 08/04/16 09:27 77 148/87 08/04/16 08:19 99.1 77 19 148/87 96 Room Air 08/04/16 04:00 99.0 66 18 146/78 96 Room Air 08/04/16 00:00 97.9 65 18 138/69 96 Room Air 08/03/16 22:16 98.1 08/03/16 21:29 72 163/95 08/03/16 19:00 97.3 72 20 163/95 97 Room Air 08/03/16 18:32 170/78 08/03/16 16:00 98.1 64 20 170/78 96 Room Air I&O Intake and Output 08/03/16 08/04/16 19:00 07:00 Intake Total 1200 ml 350.0 ml Output Total 1800 ml 850 ml Balance -600 ml -500.0 ml Intake Oral 1200 ml 240 ml IV Total 110.0 ml Output Urine Total 1800 ml 850 ml # Voids 6 Wound: clean Respiratory: clear Abdomen: soft, flat, non-tender, present bowel sounds Extremities: no tenderness Assessment Post-op Diagnosis Chronic appendicitis ?? Plan Additional Comments Per Pcp NASEEM PANDEY Aug 04, 2016 12:34
[2016-08-04 12:35] VITALS: BP 148/80
[2016-08-04] MEDS: Docusate 250mg cap ORAL PRN (14:37)
[2016-08-04 16:24] VITALS: BP 149/83
--- NOTE | 2016-08-04 19:47 | General Progress Note ---
Assessment/Plan Status: stable Assessment/Plan 1 Gram Negative bacteremia: Definite source remains open for discussion, likely chronic appendicitis 3- Appendicitis- age indeterminant, post urgent-inpatient Resection 2- Anemia 3- Thrombocytopenia 4- Gi-DVT prohpylaxia Plan: Persistent bactremia, source! working in progress current empirically abx Once a negative blood culture is obtained , then may continue empirical abx as an outpatient at discretion of ID service Subjective ROS Limited/Unobtainable: No Constitutional: Reports: no symptoms HEENT: Reports: no symptoms Cardiovascular: Reports: no symptoms Respiratory: Reports: no symptoms Allergies: Coded Allergies: No Known Allergies (Unverified , 07/21/16) Objective Last 24 Hour Vital Signs Date Time Temp Pulse Resp B/P Pulse Ox O2 Delivery O2 Flow Rate FiO2 08/04/16 16:24 98.2 62 19 149/83 98 Room Air 08/04/16 12:35 98.4 63 19 148/80 98 Room Air 08/04/16 09:27 77 148/87 08/04/16 08:19 99.1 77 19 148/87 96 Room Air 08/04/16 04:00 99.0 66 18 146/78 96 Room Air 08/04/16 00:00 97.9 65 18 138/69 96 Room Air 08/03/16 22:16 98.1 08/03/16 21:29 72 163/95 Intake and Output 08/03/16 08/04/16 19:00 07:00 Intake Total 1200 ml 350.0 ml Output Total 1800 ml 850 ml Balance -600 ml -500.0 ml Intake Oral 1200 ml 240 ml IV Total 110.0 ml Output Urine Total 1800 ml 850 ml # Voids 6 Height (Feet): 5 Height (Inches): 7.00 Weight (Pounds): 160 General Appearance: no apparent distress EENT: PERRL/EOMI Neck: supple Cardiovascular: normal rate Respiratory/Chest: lungs clear Abdomen: soft Neurologic: oriented x 3 Nolvia Hartley MD Aug 04, 2016 19:47
[2016-08-04 20:00] VITALS: BP 162/95
[2016-08-04] MEDS: Miralax 17gm pkt ORAL SCH (20:31)
[2016-08-05] VITALS: BP 153/94
[2016-08-05] MEDS: Piperacillin/Tazobactam 3.375 GM in NS 110 ML IVPB SCH ×3 (02:13→18:27)
[2016-08-05 04:00] VITALS: BP 151/87
[2016-08-05] MEDS: NovoLOG Insulin Flexpen SUBQ SCH ×4 (06:26→21:11)
[2016-08-05 07:14] LABS: BASOPHILS % (AUTO) 1.6 % (0.0-2.0); EOSINOPHILS % (AUTO) 1.9 % (0.0-3.0); LYMPHOCYTES % (AUTO) 18.6 % (20.0-45.0); MEAN CORPUSCULAR HEMOGLOBIN 31.4 PG (27.0-31.0); MEAN CORPUSCULAR HGB CONC 34.7 G/DL (32.0-36.0); MEAN CORPUSCULAR VOLUME 91 FL (80-99); MEAN PLATELET VOLUME 10.1 FL (6.5-10.1); MONOCYTES % (AUTO) 7.5 % (1.0-10.0); NEUTROPHILS % (AUTO) 70.3 % (45.0-75.0); PLATELET COUNT 215 K/UL (150-450); RED BLOOD COUNT 3.81 M/UL (4.70-6.10); WHITE BLOOD COUNT 6.9 K/UL (4.8-10.8)
[2016-08-05 07:51] LABS: ANION GAP 20 (5-15); CALCIUM 8.9 mg/dL (8.6-10.2); CARBON DIOXIDE 23 mEQ/L (20-30); CHLORIDE 94 mEQ/L (98-107); CREATININE 0.9 mg/dL (0.7-1.2); GLOMERULAR FILTRATION RATE > 60 mL/min (>60); HEMOLYSIS 58; POTASSIUM 4.3 mEQ/L (3.4-4.9); SODIUM 137 mEQ/L (135-145)
[2016-08-05 07:56] VITALS: BP 150/90
[2016-08-05] MEDS: Metoprolol 25mg tab ORAL SCH ×2 (08:38→21:08)
[2016-08-05] MEDS: Enoxaparin 40mg Inj SUBQ SCH (08:39)
[2016-08-05] MEDS: Levemir Flexpen SUBQ SCH ×2 (08:39→18:28)
--- NOTE | 2016-08-05 09:31 | Infectious Diseases Prog Note ---
Assessment/Plan Assessment/Plan A: The patient is a 60-year-old male with Fever, low grade , SP Persistent Bacteremia BlCx : EColi Hx of +ve Blood culture EColi source : Chronic appendicitis ?? MRI : No liver abscess probable Ch Appendicitis SP open Sx CT: uncomplicated acute appendicitis, Thrombocytopenia , SP PLAN: Continue the patient on IV Zosyn d# 8 / 14 ( SP Cefepime 5 ) Monitor CBC Monitor BMP. Monitor blood culture.( repeat in AM ) 2D Echo ro Veg : P pt need to have LAZARO ro SBE ( DW PCP and RN ) Subjective Constitutional: Denies: anorexia, chills, drenching sweats, fatigue, fever, no symptoms, other Allergies: Coded Allergies: No Known Allergies (Unverified , 07/21/16) Objective Vital Signs Last 24 Hour Vital Signs Date Time Temp Pulse Resp B/P Pulse Ox O2 Delivery O2 Flow Rate FiO2 08/05/16 08:38 72 150/90 08/05/16 07:56 97.9 72 22 150/90 97 Room Air 08/05/16 04:00 98.0 65 20 151/87 96 Room Air 08/05/16 00:00 97.0 73 18 153/94 99 Room Air 08/04/16 20:32 69 162/95 08/04/16 20:00 98.1 69 18 162/95 96 Room Air 08/04/16 16:24 98.2 62 19 149/83 98 Room Air 08/04/16 12:35 98.4 63 19 148/80 98 Room Air Height (Feet): 5 Height (Inches): 7.00 Weight (Pounds): 160 HEENT: atraumatic Respiratory/Chest: normal breath sounds Cardiovascular: regular rhythm Abdomen: soft, non tender Microbiology Date/Time Source Procedure Growth Status 08/03/16 12:15 Blood Blood Culture - Preliminary Resulted 08/03/16 12:00 Blood Blood Culture - Preliminary Gram Negative Bacillus 1 Resulted Laboratory Tests Test 08/05/16 06:20 White Blood Count 6.9 K/UL (4.8-10.8) Red Blood Count 3.81 M/UL (4.70-6.10) L Hemoglobin 11.9 G/DL (14.2-18.0) L Hematocrit 34.5 % (42.0-52.0) L Mean Corpuscular Volume 91 FL (80-99) Mean Corpuscular Hemoglobin 31.4 PG (27.0-31.0) H Mean Corpuscular Hemoglobin Concent 34.7 G/DL (32.0-36.0) Red Cell Distribution Width 12.0 % (11.6-14.8) Platelet Count 215 K/UL (150-450) Mean Platelet Volume 10.1 FL (6.5-10.1) Neutrophils (%) (Auto) 70.3 % (45.0-75.0) Lymphocytes (%) (Auto) 18.6 % (20.0-45.0) L Monocytes (%) (Auto) 7.5 % (1.0-10.0) Eosinophils (%) (Auto) 1.9 % (0.0-3.0) Basophils (%) (Auto) 1.6 % (0.0-2.0) Sodium Level 137 mEQ/L (135-145) Potassium Level 4.3 mEQ/L (3.4-4.9) Chloride Level 94 mEQ/L (98-107) L Carbon Dioxide Level 23 mEQ/L (20-30) Anion Gap 20 (5-15) H Blood Urea Nitrogen 7 mg/dL (7-23) Creatinine 0.9 mg/dL (0.7-1.2) Estimat Glomerular Filtration Rate > 60 mL/min (>60) Glucose Level 137 mg/dL (74-106) H Calcium Level 8.9 mg/dL (8.6-10.2) Current Medications Medications (Trade) Dose Ordered Sig/Antonio Route PRN Reason Start Time Stop Time Status Last Admin Dose Admin Acetaminophen (Tylenol) 650 mg Q4H PRN RECTAL FEVER 07/30/16 15:00 08/29/16 14:59 Acetaminophen (Tylenol) 650 mg Q6H PRN ORAL Mild Pain (Pain Scale 1-3) 07/29/16 09:30 08/28/16 09:29 07/30/16 03:49 Clonidine HCl (Catapres) 0.1 mg Q4H PRN ORAL sbp > 160 08/03/16 14:15 09/02/16 14:14 08/03/16 18:32 Dextrose STAT PRN IV Hypoglycemia 07/31/16 01:00 08/30/16 00:59 Docusate Sodium (Colace) 250 mg DAILY PRN ORAL Constipation 08/03/16 16:00 09/02/16 15:59 08/04/16 14:37 Enoxaparin Sodium (Lovenox) 40 mg DAILY SUBQ 07/31/16 09:00 08/30/16 08:59 08/05/16 08:39 Hydromorphone HCl (Dilaudid) 0.5 mg Q3H PRN IVP Pain Score 1-3 07/30/16 15:00 08/06/16 14:59 Hydromorphone HCl (Dilaudid) 1 mg Q3H PRN IVP pain score 4-6 07/30/16 15:00 08/06/16 14:59 Hydromorphone HCl (Dilaudid) 2 mg Q3H PRN IVP pain score 7-10 07/30/16 15:00 08/06/16 14:59 08/05/16 02:18 Insulin Aspart (NovoLOG) AC+HS SUBQ 07/31/16 21:00 08/30/16 20:59 08/05/16 06:26 Insulin Detemir (Levemir) 10 units BID SUBQ 08/02/16 09:00 09/01/16 08:59 08/05/16 08:39 Metoclopramide HCl (Reglan) 10 mg Q6H PRN IVP Nausea & Vomiting 07/30/16 15:00 08/29/16 14:59 Metoprolol Tartrate (Lopressor) 25 mg Q12HR ORAL 07/29/16 10:00 08/28/16 09:59 08/05/16 08:38 Ondansetron HCl (Zofran) 4 mg Q6H PRN IVP Nausea & Vomiting 07/30/16 15:00 08/29/16 14:59 07/30/16 17:56 Pantoprazole (Protonix) 40 mg DAILY ORAL 08/03/16 09:00 09/02/16 08:59 08/05/16 08:38 Piperacillin Sod/ Tazobactam Sod/ Sodium Chloride (Zosyn/Sodium Chloride) 110 ml @ 27.5 mls/hr Q8HR@0200,1100,1900 IVPB 07/31/16 19:00 08/11/16 23:59 08/05/16 02:13 Polyethylene Glycol (Miralax) 17 gm BEDTIME ORAL 08/02/16 21:00 09/01/16 20:59 08/04/16 20:31 NNEKA WHALEY M.D. Aug 05, 2016 09:31
[2016-08-05 11:44] VITALS: BP 150/87
[2016-08-05] MEDS ORDERED: traMADol 50mg tab ORAL PRN (11:45)
--- NOTE | 2016-08-05 11:47 | General Surgery Progress Note ---
General Surgery-Progress Note Subjective Procedure Performed attempted Lap appy, open appendectomy Symptoms: passing flatus Objective Last 24 Hour Vital Signs Date Time Temp Pulse Resp B/P Pulse Ox O2 Delivery O2 Flow Rate FiO2 08/05/16 11:44 97.7 85 20 150/87 98 Room Air 08/05/16 08:38 72 150/90 08/05/16 07:56 97.9 72 22 150/90 97 Room Air 08/05/16 04:00 98.0 65 20 151/87 96 Room Air 08/05/16 00:00 97.0 73 18 153/94 99 Room Air 08/04/16 20:32 69 162/95 08/04/16 20:00 98.1 69 18 162/95 96 Room Air 08/04/16 16:24 98.2 62 19 149/83 98 Room Air 08/04/16 12:35 98.4 63 19 148/80 98 Room Air I&O Intake and Output 08/04/16 08/05/16 19:00 07:00 Intake Total 787.5 ml 800.0 ml Output Total 1100 ml Balance -312.5 ml 800.0 ml Intake Oral 760 ml 580 ml IV Total 27.5 ml 220.0 ml Output Urine Total 1100 ml # Voids 6 Wound: clean, intact Respiratory: clear Abdomen: soft, flat, non-tender, present bowel sounds Extremities: no tenderness Laboratory Tests Test 08/05/16 06:20 White Blood Count 6.9 K/UL (4.8-10.8) Red Blood Count 3.81 M/UL (4.70-6.10) L Hemoglobin 11.9 G/DL (14.2-18.0) L Hematocrit 34.5 % (42.0-52.0) L Mean Corpuscular Volume 91 FL (80-99) Mean Corpuscular Hemoglobin 31.4 PG (27.0-31.0) H Mean Corpuscular Hemoglobin Concent 34.7 G/DL (32.0-36.0) Red Cell Distribution Width 12.0 % (11.6-14.8) Platelet Count 215 K/UL (150-450) Mean Platelet Volume 10.1 FL (6.5-10.1) Neutrophils (%) (Auto) 70.3 % (45.0-75.0) Lymphocytes (%) (Auto) 18.6 % (20.0-45.0) L Monocytes (%) (Auto) 7.5 % (1.0-10.0) Eosinophils (%) (Auto) 1.9 % (0.0-3.0) Basophils (%) (Auto) 1.6 % (0.0-2.0) Sodium Level 137 mEQ/L (135-145) Potassium Level 4.3 mEQ/L (3.4-4.9) Chloride Level 94 mEQ/L (98-107) L Carbon Dioxide Level 23 mEQ/L (20-30) Anion Gap 20 (5-15) H Blood Urea Nitrogen 7 mg/dL (7-23) Creatinine 0.9 mg/dL (0.7-1.2) Estimat Glomerular Filtration Rate > 60 mL/min (>60) Glucose Level 137 mg/dL (74-106) H Calcium Level 8.9 mg/dL (8.6-10.2) Assessment Post-op Diagnosis Chronic appendicitis ?? Plan Additional Comments per PCP NASEEM PANDEY Aug 05, 2016 11:47
--- NOTE | 2016-08-05 12:07 | General Progress Note ---
Assessment/Plan Status: stable Assessment/Plan 1 Gram Negative bacteremia: Definite source remains open for discussion, ? chronic appendicitis 3- Appendicitis- age indeterminant, post urgent-inpatient Resection 2- Anemia 3- Thrombocytopenia 4- Gi-DVT prohpylaxia Plan: Persistent bacteremia, source! working in progress current empirically abx Once a negative blood culture is obtained , then may continue empirical abx as an outpatient at discretion of ID service Subjective ROS Limited/Unobtainable: No Allergies: Coded Allergies: No Known Allergies (Unverified , 07/21/16) Objective Last 24 Hour Vital Signs Date Time Temp Pulse Resp B/P Pulse Ox O2 Delivery O2 Flow Rate FiO2 08/05/16 11:44 97.7 85 20 150/87 98 Room Air 08/05/16 08:38 72 150/90 08/05/16 07:56 97.9 72 22 150/90 97 Room Air 08/05/16 04:00 98.0 65 20 151/87 96 Room Air 08/05/16 00:00 97.0 73 18 153/94 99 Room Air 08/04/16 20:32 69 162/95 08/04/16 20:00 98.1 69 18 162/95 96 Room Air 08/04/16 16:24 98.2 62 19 149/83 98 Room Air 08/04/16 12:35 98.4 63 19 148/80 98 Room Air Intake and Output 08/04/16 08/05/16 19:00 07:00 Intake Total 787.5 ml 800.0 ml Output Total 1100 ml Balance -312.5 ml 800.0 ml Intake Oral 760 ml 580 ml IV Total 27.5 ml 220.0 ml Output Urine Total 1100 ml # Voids 6 Laboratory Tests 08/05/16 06:20: White Blood Count 6.9, Red Blood Count 3.81L, Hemoglobin 11.9L, Hematocrit 34.5L , Mean Corpuscular Volume 91, Mean Corpuscular Hemoglobin 31.4H, Mean Corpuscular Hemoglobin Concent 34.7, Red Cell Distribution Width 12.0, Platelet Count 215, Mean Platelet Volume 10.1, Neutrophils (%) (Auto) 70.3, Lymphocytes ( %) (Auto) 18.6L, Monocytes (%) (Auto) 7.5, Eosinophils (%) (Auto) 1.9, Basophils (%) (Auto) 1.6, Sodium Level 137, Potassium Level 4.3, Chloride Level 94L, Carbon Dioxide Level 23, Anion Gap 20H, Blood Urea Nitrogen 7, Creatinine 0.9, Estimat Glomerular Filtration Rate > 60, Glucose Level 137H, Calcium Level 8.9 Height (Feet): 5 Height (Inches): 7.00 Weight (Pounds): 160 General Appearance: no apparent distress EENT: PERRL/EOMI Neck: supple Cardiovascular: normal rate Respiratory/Chest: lungs clear Abdomen: soft Extremities: non-tender Neurologic: food safety scientist II-XII grossly normal, oriented x 3 Nolvia Hartley MD Aug 05, 2016 12:07
[2016-08-05] MEDS ORDERED: Fleet's Enema 133ml RECTAL ONE (13:00)
[2016-08-05] MEDS: traMADol 50mg tab ORAL PRN ×2 (13:53→21:11)
[2016-08-05 15:48] VITALS: BP 154/86
[2016-08-05 20:00] VITALS: BP 153/84
[2016-08-05] MEDS: Miralax 17gm pkt ORAL SCH (21:08)
[2016-08-06] VITALS: BP 147/83
[2016-08-06] MEDS: Piperacillin/Tazobactam 3.375 GM in NS 110 ML IVPB SCH ×3 (02:29→18:24)
[2016-08-06 04:00] VITALS: BP 149/82
[2016-08-06] MEDS: NovoLOG Insulin Flexpen SUBQ SCH ×4 (06:30→21:05)
[2016-08-06 08:17] VITALS: BP 154/83
[2016-08-06] MEDS: Metoprolol 25mg tab ORAL SCH ×2 (08:55→21:01)
[2016-08-06] MEDS: Docusate 250mg cap ORAL PRN (08:55)
[2016-08-06] MEDS: Levemir Flexpen SUBQ SCH ×2 (08:59→17:12)
[2016-08-06] MEDS: Enoxaparin 40mg Inj SUBQ SCH (08:59)
--- NOTE | 2016-08-06 09:14 | Infectious Diseases Prog Note ---
Assessment/Plan Assessment/Plan A: The patient is a 60-year-old male with Fever, low grade , SP Persistent Bacteremia BlCx : EColi 2D echo : no Veg Hx of +ve Blood culture EColi source : Chronic appendicitis ?? MRI : No liver abscess probable Ch Appendicitis SP open Sx CT: uncomplicated acute appendicitis, Thrombocytopenia , SP PLAN: Continue the patient on IV Zosyn d# 9 / 14 ( SP Cefepime 5 ) Monitor CBC Monitor BMP. Monitor blood culture.( repeat ) pt need to have LAZARO ro SBE ( GAURI PCP and RN ) Subjective Constitutional: Denies: anorexia, chills, drenching sweats, fatigue, fever, no symptoms, other Allergies: Coded Allergies: No Known Allergies (Unverified , 07/21/16) Objective Vital Signs Last 24 Hour Vital Signs Date Time Temp Pulse Resp B/P Pulse Ox O2 Delivery O2 Flow Rate FiO2 08/06/16 08:55 85 154/83 08/06/16 08:17 97.5 65 19 154/83 100 Room Air 08/06/16 04:00 96.4 62 18 149/82 96 Room Air 08/06/16 00:00 97.9 59 18 147/83 96 Room Air 08/05/16 21:08 63 153/84 08/05/16 20:00 97.7 63 18 153/84 98 Room Air 08/05/16 15:48 97.6 66 22 154/86 99 Room Air 08/05/16 11:44 97.7 85 20 150/87 98 Room Air Height (Feet): 5 Height (Inches): 7.00 Weight (Pounds): 160 HEENT: anicteric Respiratory/Chest: no respiratory distress Cardiovascular: regular rhythm Abdomen: non distended Microbiology Date/Time Source Procedure Growth Status 08/03/16 12:15 Blood Blood Culture - Final Escherichia Coli Complete 08/03/16 12:00 Blood Blood Culture - Final Escherichia Coli Complete Current Medications Medications (Trade) Dose Ordered Sig/Antonio Route PRN Reason Start Time Stop Time Status Last Admin Dose Admin Acetaminophen (Tylenol) 650 mg Q4H PRN RECTAL FEVER 07/30/16 15:00 08/29/16 14:59 Acetaminophen (Tylenol) 650 mg Q6H PRN ORAL Mild Pain (Pain Scale 1-3) 07/29/16 09:30 08/28/16 09:29 08/05/16 11:24 Bisacodyl (Dulcolax) 10 mg DAILYPRN PRN RECTAL Constipation 08/05/16 11:45 09/04/16 11:44 Clonidine HCl (Catapres) 0.1 mg Q4H PRN ORAL sbp > 160 08/03/16 14:15 09/02/16 14:14 08/03/16 18:32 Dextrose STAT PRN IV Hypoglycemia 07/31/16 01:00 08/30/16 00:59 Docusate Sodium (Colace) 250 mg DAILY PRN ORAL Constipation 08/03/16 16:00 09/02/16 15:59 08/06/16 08:55 Enoxaparin Sodium (Lovenox) 40 mg DAILY SUBQ 07/31/16 09:00 08/30/16 08:59 08/06/16 08:59 Insulin Aspart (NovoLOG) AC+HS SUBQ 07/31/16 21:00 08/30/16 20:59 08/05/16 21:11 Insulin Detemir (Levemir) 10 units BID SUBQ 08/02/16 09:00 09/01/16 08:59 08/06/16 08:59 Metoclopramide HCl (Reglan) 10 mg Q6H PRN IVP Nausea & Vomiting 07/30/16 15:00 08/29/16 14:59 Metoprolol Tartrate (Lopressor) 25 mg Q12HR ORAL 07/29/16 10:00 08/28/16 09:59 08/06/16 08:55 Ondansetron HCl (Zofran) 4 mg Q6H PRN IVP Nausea & Vomiting 07/30/16 15:00 08/29/16 14:59 07/30/16 17:56 Pantoprazole (Protonix) 40 mg DAILY ORAL 08/03/16 09:00 09/02/16 08:59 08/06/16 09:01 Piperacillin Sod/ Tazobactam Sod/ Sodium Chloride (Zosyn/Sodium Chloride) 110 ml @ 27.5 mls/hr Q8HR@0200,1100,1900 IVPB 07/31/16 19:00 08/11/16 23:59 08/06/16 02:29 Polyethylene Glycol (Miralax) 17 gm BEDTIME ORAL 08/02/16 21:00 09/01/16 20:59 08/05/16 21:08 Tramadol HCl (Ultram) 50 mg Q6H PRN ORAL Breakthrough Pain 08/05/16 12:00 08/12/16 11:59 08/05/16 21:11 NNEKA WHALEY M.D. Aug 06, 2016 09:14
--- NOTE | 2016-08-06 09:56 | General Progress Note ---
Assessment/Plan Status: stable Assessment/Plan 1 Gram Negative bacteremia: Definite source remains open for discussion, ? chronic appendicitis 3- Appendicitis- age indeterminant, post urgent-inpatient Resection 2- Anemia 4- Thrombocytopenia 5- DM- uncontrolled 4- Gi-DVT prohpylaxia Plan: Persistent bacteremia, source! working in progress current empirically abx Once a negative blood culture is obtained , then may continue empirical abx as an outpatient at discretion of ID service Subjective ROS Limited/Unobtainable: Yes Constitutional: Reports: no symptoms HEENT: Reports: no symptoms Cardiovascular: Reports: no symptoms Respiratory: Reports: no symptoms Gastrointestinal/Abdominal: Reports: no symptoms Allergies: Coded Allergies: No Known Allergies (Unverified , 07/21/16) Objective Last 24 Hour Vital Signs Date Time Temp Pulse Resp B/P Pulse Ox O2 Delivery O2 Flow Rate FiO2 08/06/16 08:55 85 154/83 08/06/16 08:17 97.5 65 19 154/83 100 Room Air 08/06/16 04:00 96.4 62 18 149/82 96 Room Air 08/06/16 00:00 97.9 59 18 147/83 96 Room Air 08/05/16 21:08 63 153/84 08/05/16 20:00 97.7 63 18 153/84 98 Room Air 08/05/16 15:48 97.6 66 22 154/86 99 Room Air 08/05/16 11:44 97.7 85 20 150/87 98 Room Air Intake and Output 08/05/16 08/06/16 19:00 07:00 Intake Total 960 ml Output Total 450 ml 1200 ml Balance 510 ml -1200 ml Intake Oral 960 ml Output Urine Total 450 ml 1200 ml # Voids 2 1 Height (Feet): 5 Height (Inches): 7.00 Weight (Pounds): 160 General Appearance: no apparent distress EENT: PERRL/EOMI Neck: supple Cardiovascular: normal rate Respiratory/Chest: lungs clear Abdomen: soft Extremities: non-tender Neurologic: human resources trainer II-XII grossly normal Nolvia Hartley MD Aug 06, 2016 09:56
[2016-08-06 11:35] VITALS: BP 154/87
--- NOTE | 2016-08-06 14:16 | General Surgery Progress Note ---
General Surgery-Progress Note Subjective Procedure Performed attempted Lap appy, open appendectomy Symptoms: improved, BM Objective Last 24 Hour Vital Signs Date Time Temp Pulse Resp B/P Pulse Ox O2 Delivery O2 Flow Rate FiO2 08/06/16 11:35 97.7 61 19 154/87 98 Room Air 08/06/16 08:55 85 154/83 08/06/16 08:17 97.5 65 19 154/83 100 Room Air 08/06/16 04:00 96.4 62 18 149/82 96 Room Air 08/06/16 00:00 97.9 59 18 147/83 96 Room Air 08/05/16 21:08 63 153/84 08/05/16 20:00 97.7 63 18 153/84 98 Room Air 08/05/16 15:48 97.6 66 22 154/86 99 Room Air I&O Intake and Output 08/05/16 08/06/16 19:00 07:00 Intake Total 960 ml Output Total 450 ml 1200 ml Balance 510 ml -1200 ml Intake Oral 960 ml Output Urine Total 450 ml 1200 ml # Voids 2 1 Wound: clean, intact Respiratory: clear Abdomen: soft, flat, non-tender, present bowel sounds Extremities: no tenderness Assessment Post-op Diagnosis Chronic appendicitis ?? Plan Additional Comments Per NASEEM Richards Aug 06, 2016 14:16
[2016-08-06] MEDS: traMADol 50mg tab ORAL PRN (15:01)
--- NOTE | 2016-08-06 15:24 | Cardiology Report ---
APPROVED REPORT EXAM: Two-dimensional and M-mode echocardiogram with Doppler and color Doppler. INDICATION Possibility of vegetation M-Mode DIMENSIONS IVSd1.5 (0.7-1.1cm)Left Atrium (MM)4.0 (1.6-4.0cm) LVDd4.9 (3.5-5.6cm)Aortic Root2.9 (2.0-3.7cm) PWd1.0 (0.7-1.1cm)Aortic Cusp Exc.2.0 (1.5-2.0cm) LVDs3.1 (2.5-4.0cm) PWs1.8 cm Technically difficult study due to poor acoustic windows. Study quality precludes accurate assessment of regional wall motion. Normal left ventricular chamber size, systolic function and wall motion. Left ventricular ejection fraction estimated to be 55 %. Mild left ventricular hypertrophy. No evidence of pericardial fat or effusion. All other cardiac chamber sizes are within normal limits. Mild focal aortic valve sclerosis with adequate cusp excursion. Mildly thickened mitral valve leaflets with normal excursion. Mild mitral annulus and aortic root calcification. Pulmonic valve not visualized. Normal tricuspid valve structure. IVC at normal size with physiologic collapse. No discrete vegetations seen, however SBE may not be excluded by transthoracic 2-D echo. Consider LAZARO if clinically indicated. A color flow and spectral Doppler study was performed and revealed: No aortic regurgitation. Trace mitral regurgitation. Mitral diastolic velocities suggest reduced left ventricular relaxation (Grade I). Mild tricuspid regurgitation. Tricuspid systolic velocities suggests peak right ventricular systolic pressure of 39 mmHg, consistent with mild pulmonary hypertension.
[2016-08-06 16:13] VITALS: BP 153/88
[2016-08-06 20:00] VITALS: BP 154/85
[2016-08-06] MEDS: Miralax 17gm pkt ORAL SCH (21:01)
[2016-08-07] VITALS: BP 155/87
[2016-08-07] MEDS: Piperacillin/Tazobactam 3.375 GM in NS 110 ML IVPB SCH ×3 (01:29→18:33)
[2016-08-07 04:00] VITALS: BP 147/78
[2016-08-07] MEDS: traMADol 50mg tab ORAL PRN ×2 (04:16→11:29)
[2016-08-07] MEDS: NovoLOG Insulin Flexpen SUBQ SCH ×4 (06:19→23:05)
[2016-08-07 07:39] VITALS: BP 145/85
--- NOTE | 2016-08-07 10:52 | General Progress Note ---
Assessment/Plan Status: stable Assessment/Plan 1 Gram Negative bacteremia: Definite source remains open for discussion, ? chronic appendicitis 3- Appendicitis- age indeterminant, post urgent-inpatient Resection 2- Anemia 4- Thrombocytopenia 5- DM- uncontrolled 4- Gi-DVT prohpylaxia Plan: Persistent bacteremia, source! working in progress current empirically abx Once a negative blood culture is obtained , then may continue empirical abx as an outpatient at discretion of ID service TTE is Negative Subjective ROS Limited/Unobtainable: No Constitutional: Reports: no symptoms HEENT: Reports: no symptoms Cardiovascular: Reports: no symptoms Allergies: Coded Allergies: No Known Allergies (Unverified , 07/21/16) Objective Last 24 Hour Vital Signs Date Time Temp Pulse Resp B/P Pulse Ox O2 Delivery O2 Flow Rate FiO2 08/07/16 07:39 97.6 68 19 145/85 97 Room Air 08/07/16 04:00 98.2 72 20 147/78 95 Room Air 08/07/16 00:00 97.7 60 20 155/87 96 Room Air 08/06/16 21:01 64 154/85 08/06/16 20:00 97.9 64 20 154/85 97 Room Air 08/06/16 16:13 97.9 61 19 153/88 97 Room Air 08/06/16 16:00 97.7 08/06/16 11:35 97.7 61 19 154/87 98 Room Air Intake and Output 08/06/16 08/07/16 19:00 07:00 Intake Total 757.5 ml 192.5 ml Output Total 1250 ml 900 ml Balance -492.5 ml -707.5 ml Intake Oral 620 ml IV Total 137.5 ml 192.5 ml Output Urine Total 1250 ml 900 ml # Voids 4 # Bowel Movements 1 Height (Feet): 5 Height (Inches): 7.00 Weight (Pounds): 160 General Appearance: WD/WN EENT: PERRL/EOMI Neck: supple Cardiovascular: normal rate Respiratory/Chest: lungs clear Abdomen: soft Extremities: non-tender Neurologic: pick pulling machine tender II-XII grossly normal, oriented x 3 Nolvia Hartley MD Aug 07, 2016 10:52
[2016-08-07] MEDS: Metoprolol 25mg tab ORAL SCH ×2 (11:29→23:05)
[2016-08-07 11:30] VITALS: BP 153/82
[2016-08-07] MEDS: Enoxaparin 40mg Inj SUBQ SCH (11:35)
--- NOTE | 2016-08-07 11:51 | General Surgery Progress Note ---
General Surgery-Progress Note Subjective Procedure Performed attempted Lap appy, open appendectomy Symptoms: improved Objective Last 24 Hour Vital Signs Date Time Temp Pulse Resp B/P Pulse Ox O2 Delivery O2 Flow Rate FiO2 08/07/16 11:30 97.5 60 19 153/82 98 Room Air 08/07/16 11:29 68 145/85 08/07/16 07:39 97.6 68 19 145/85 97 Room Air 08/07/16 04:00 98.2 72 20 147/78 95 Room Air 08/07/16 00:00 97.7 60 20 155/87 96 Room Air 08/06/16 21:01 64 154/85 08/06/16 20:00 97.9 64 20 154/85 97 Room Air 08/06/16 16:13 97.9 61 19 153/88 97 Room Air 08/06/16 16:00 97.7 I&O Intake and Output 08/06/16 08/07/16 19:00 07:00 Intake Total 757.5 ml 192.5 ml Output Total 1250 ml 900 ml Balance -492.5 ml -707.5 ml Intake Oral 620 ml IV Total 137.5 ml 192.5 ml Output Urine Total 1250 ml 900 ml # Voids 4 # Bowel Movements 1 Respiratory: clear Abdomen: soft, flat, non-tender, present bowel sounds Extremities: no tenderness Assessment Post-op Diagnosis Chronic appendicitis ?? Plan Additional Comments I will sign off NASEEM PANDEY Aug 07, 2016 11:51
[2016-08-07] MEDS: Levemir Flexpen SUBQ SCH ×2 (12:43→18:36)
[2016-08-07 15:52] VITALS: BP 150/81
[2016-08-07 19:00] VITALS: BP 134/82
--- NOTE | 2016-08-07 20:22 | Infectious Diseases Prog Note ---
Assessment/Plan Assessment/Plan A: The patient is a 60-year-old male with Fever, low grade , SP Persistent Bacteremia BlCx : EColi 2D echo : no Veg Hx of +ve Blood culture EColi source : Chronic appendicitis ?? MRI : No liver abscess probable Ch Appendicitis SP open Sx CT: uncomplicated acute appendicitis, Thrombocytopenia , SP PLAN: Continue the patient on IV Zosyn d# 10 / 14 ( SP Cefepime 5 ) Monitor CBC Monitor BMP. Monitor blood culture.( repeat ) if repeat blood cx positive will need LAZARO ro SBE Subjective Constitutional: Denies: anorexia, chills, drenching sweats, fatigue, fever, no symptoms, other Allergies: Coded Allergies: No Known Allergies (Unverified , 07/21/16) Objective Vital Signs Last 24 Hour Vital Signs Date Time Temp Pulse Resp B/P Pulse Ox O2 Delivery O2 Flow Rate FiO2 08/07/16 15:52 97.9 59 20 150/81 99 Room Air 08/07/16 12:28 97.5 08/07/16 11:30 97.5 60 19 153/82 98 Room Air 08/07/16 11:29 68 145/85 08/07/16 07:39 97.6 68 19 145/85 97 Room Air 08/07/16 04:00 98.2 72 20 147/78 95 Room Air 08/07/16 00:00 97.7 60 20 155/87 96 Room Air 08/06/16 21:01 64 154/85 Height (Feet): 5 Height (Inches): 7.00 Weight (Pounds): 160 Respiratory/Chest: normal breath sounds Cardiovascular: regular rhythm Abdomen: no organomegaly Microbiology Date/Time Source Procedure Growth Status 08/05/16 10:55 Blood Blood Culture - Preliminary NO GROWTH AFTER 24 HOURS Resulted 08/05/16 10:40 Blood Blood Culture - Preliminary NO GROWTH AFTER 24 HOURS Resulted Current Medications Medications (Trade) Dose Ordered Sig/Antonio Route PRN Reason Start Time Stop Time Status Last Admin Dose Admin Acetaminophen (Tylenol) 650 mg Q4H PRN RECTAL FEVER 07/30/16 15:00 08/29/16 14:59 Acetaminophen (Tylenol) 650 mg Q6H PRN ORAL Mild Pain (Pain Scale 1-3) 07/29/16 09:30 08/28/16 09:29 08/05/16 11:24 Bisacodyl (Dulcolax) 10 mg DAILYPRN PRN RECTAL Constipation 08/05/16 11:45 09/04/16 11:44 Clonidine HCl (Catapres) 0.1 mg Q4H PRN ORAL sbp > 160 08/03/16 14:15 09/02/16 14:14 08/03/16 18:32 Dextrose STAT PRN IV Hypoglycemia 07/31/16 01:00 08/30/16 00:59 Docusate Sodium (Colace) 250 mg DAILY PRN ORAL Constipation 08/03/16 16:00 09/02/16 15:59 08/06/16 08:55 Enoxaparin Sodium (Lovenox) 40 mg DAILY SUBQ 07/31/16 09:00 08/30/16 08:59 08/07/16 11:35 Insulin Aspart (NovoLOG) AC+HS SUBQ 07/31/16 21:00 08/30/16 20:59 08/07/16 17:19 Insulin Detemir (Levemir) 10 units BID SUBQ 08/02/16 09:00 09/01/16 08:59 08/07/16 18:36 Metoclopramide HCl (Reglan) 10 mg Q6H PRN IVP Nausea & Vomiting 07/30/16 15:00 08/29/16 14:59 Metoprolol Tartrate (Lopressor) 25 mg Q12HR ORAL 07/29/16 10:00 08/28/16 09:59 08/07/16 11:29 Ondansetron HCl (Zofran) 4 mg Q6H PRN IVP Nausea & Vomiting 07/30/16 15:00 08/29/16 14:59 07/30/16 17:56 Pantoprazole (Protonix) 40 mg DAILY ORAL 08/03/16 09:00 09/02/16 08:59 08/07/16 11:29 Piperacillin Sod/ Tazobactam Sod/ Sodium Chloride (Zosyn/Sodium Chloride) 110 ml @ 27.5 mls/hr Q8HR@0200,1100,1900 IVPB 07/31/16 19:00 08/11/16 23:59 08/07/16 18:33 Polyethylene Glycol (Miralax) 17 gm BEDTIME ORAL 08/02/16 21:00 09/01/16 20:59 08/06/16 21:01 Tramadol HCl (Ultram) 50 mg Q6H PRN ORAL Breakthrough Pain 08/05/16 12:00 08/12/16 11:59 08/07/16 11:29 NNEKA WHALEY M.D. Aug 07, 2016 20:22
[2016-08-07] MEDS: Miralax 17gm pkt ORAL SCH (23:05)
[2016-08-08] VITALS: BP 153/88
[2016-08-08] MEDS: Piperacillin/Tazobactam 3.375 GM in NS 110 ML IVPB SCH ×3 (03:05→18:39)
[2016-08-08 04:00] VITALS: BP 148/82
[2016-08-08] MEDS: NovoLOG Insulin Flexpen SUBQ SCH ×4 (07:02→21:23)
[2016-08-08 08:02] VITALS: BP 155/88
[2016-08-08] MEDS: Metoprolol 25mg tab ORAL SCH ×2 (09:30→21:22)
[2016-08-08] MEDS: Enoxaparin 40mg Inj SUBQ SCH (09:32)
[2016-08-08] MEDS: Levemir Flexpen SUBQ SCH ×2 (09:33→17:41)
--- NOTE | 2016-08-08 10:42 | General Progress Note ---
Assessment/Plan Status: stable Assessment/Plan 1 Gram Negative bacteremia: Definite source remains open for discussion, ? chronic appendicitis, endocarditis! 3- Appendicitis- age indeterminant, post urgent-inpatient Resection 2- Anemia 4- Thrombocytopenia 5- DM- uncontrolled 4- Gi-DVT prohpylaxia Plan: Persistent bacteremia, source! working in progress current empirically abx Once a negative blood culture is obtained , then may continue empirical abx as an outpatient at discretion of ID service TTE is Negative, LAZARO at discretion of ID Subjective ROS Limited/Unobtainable: No Constitutional: Reports: no symptoms HEENT: Reports: no symptoms Cardiovascular: Reports: no symptoms Allergies: Coded Allergies: No Known Allergies (Unverified , 07/21/16) Objective Last 24 Hour Vital Signs Date Time Temp Pulse Resp B/P Pulse Ox O2 Delivery O2 Flow Rate FiO2 08/08/16 09:30 61 155/88 08/08/16 08:02 97.7 61 14 155/88 98 Room Air 08/08/16 04:00 98.0 93 18 148/82 96 Room Air 08/08/16 00:00 97.7 98 18 153/88 97 Room Air 08/07/16 23:05 79 134/82 08/07/16 19:00 97.0 79 18 134/82 97 Room Air 08/07/16 15:52 97.9 59 20 150/81 99 Room Air 08/07/16 12:28 97.5 08/07/16 11:30 97.5 60 19 153/82 98 Room Air 08/07/16 11:29 68 145/85 Intake and Output 08/07/16 08/08/16 19:00 07:00 Intake Total 906.25 ml 600 ml Output Total 350 ml 125 ml Balance 556.25 ml 475 ml Intake Oral 810 ml 600 ml IV Total 96.25 ml Output Urine Total 350 ml 125 ml # Voids 2 5 # Bowel Movements 1 Height (Feet): 5 Height (Inches): 7.00 Weight (Pounds): 160 General Appearance: no apparent distress EENT: PERRL/EOMI Neck: supple Cardiovascular: normal rate Respiratory/Chest: lungs clear Abdomen: soft Extremities: non-tender Neurologic: project manager process development II-XII grossly normal, oriented x 3 Nolvia Hartley MD Aug 08, 2016 10:42
[2016-08-08 11:17] VITALS: BP 134/84
--- NOTE | 2016-08-08 15:51 | Infectious Diseases Prog Note ---
Assessment/Plan Assessment/Plan A: The patient is a 60-year-old male with Fever, low grade , SP Persistent Bacteremia BlCx : EColi 2D echo : no Veg Hx of +ve Blood culture EColi source : Chronic appendicitis ?? MRI : No liver abscess probable Ch Appendicitis SP open Sx CT: uncomplicated acute appendicitis, Thrombocytopenia , SP PLAN: Continue the patient on IV Zosyn d# 11 / 14 upon DC will change to Keflex ( SP Cefepime 5 ) Monitor CBC Monitor BMP. Monitor blood culture.( repeat ) if repeat blood cx positive will need LAZARO ro SBE LAZARO can not be arranged till next wk, probability of SBE is low if cultures stay negative may DC on oral AB Rx with out pt follow up w cardio , Subjective Constitutional: Denies: anorexia, chills, drenching sweats, fatigue, fever, no symptoms, other Allergies: Coded Allergies: No Known Allergies (Unverified , 07/21/16) Objective Vital Signs Last 24 Hour Vital Signs Date Time Temp Pulse Resp B/P Pulse Ox O2 Delivery O2 Flow Rate FiO2 08/08/16 11:17 98.1 68 15 134/84 98 Room Air 08/08/16 09:30 61 155/88 08/08/16 08:02 97.7 61 14 155/88 98 Room Air 08/08/16 04:00 98.0 93 18 148/82 96 Room Air 08/08/16 00:00 97.7 98 18 153/88 97 Room Air 08/07/16 23:05 79 134/82 08/07/16 19:00 97.0 79 18 134/82 97 Room Air 08/07/16 15:52 97.9 59 20 150/81 99 Room Air Height (Feet): 5 Height (Inches): 7.00 Weight (Pounds): 160 HEENT: atraumatic Respiratory/Chest: normal breath sounds Cardiovascular: regular rhythm Abdomen: no organomegaly Current Medications Medications (Trade) Dose Ordered Sig/Antonio Route PRN Reason Start Time Stop Time Status Last Admin Dose Admin Acetaminophen (Tylenol) 650 mg Q4H PRN RECTAL FEVER 07/30/16 15:00 08/29/16 14:59 Acetaminophen (Tylenol) 650 mg Q6H PRN ORAL Mild Pain (Pain Scale 1-3) 07/29/16 09:30 08/28/16 09:29 08/05/16 11:24 Bisacodyl (Dulcolax) 10 mg DAILYPRN PRN RECTAL Constipation 08/05/16 11:45 09/04/16 11:44 Clonidine HCl (Catapres) 0.1 mg Q4H PRN ORAL sbp > 160 08/03/16 14:15 09/02/16 14:14 08/03/16 18:32 Dextrose STAT PRN IV Hypoglycemia 07/31/16 01:00 08/30/16 00:59 Docusate Sodium (Colace) 250 mg DAILY PRN ORAL Constipation 08/03/16 16:00 09/02/16 15:59 08/06/16 08:55 Enoxaparin Sodium (Lovenox) 40 mg DAILY SUBQ 07/31/16 09:00 08/30/16 08:59 08/08/16 09:32 Insulin Aspart (NovoLOG) AC+HS SUBQ 07/31/16 21:00 08/30/16 20:59 08/08/16 11:53 Insulin Detemir (Levemir) 10 units BID SUBQ 08/02/16 09:00 09/01/16 08:59 08/08/16 09:33 Metoclopramide HCl (Reglan) 10 mg Q6H PRN IVP Nausea & Vomiting 07/30/16 15:00 08/29/16 14:59 Metoprolol Tartrate (Lopressor) 25 mg Q12HR ORAL 07/29/16 10:00 08/28/16 09:59 08/08/16 09:30 Ondansetron HCl (Zofran) 4 mg Q6H PRN IVP Nausea & Vomiting 07/30/16 15:00 08/29/16 14:59 07/30/16 17:56 Pantoprazole (Protonix) 40 mg DAILY ORAL 08/03/16 09:00 09/02/16 08:59 08/08/16 09:31 Piperacillin Sod/ Tazobactam Sod/ Sodium Chloride (Zosyn/Sodium Chloride) 110 ml @ 27.5 mls/hr Q8HR@0200,1100,1900 IVPB 07/31/16 19:00 08/11/16 23:59 08/08/16 11:51 Polyethylene Glycol (Miralax) 17 gm BEDTIME ORAL 08/02/16 21:00 09/01/16 20:59 08/07/16 23:05 Tramadol HCl (Ultram) 50 mg Q6H PRN ORAL Breakthrough Pain 08/05/16 12:00 08/12/16 11:59 08/07/16 11:29 NNEKA WHALEY M.D. Aug 08, 2016 15:51
[2016-08-08 16:20] VITALS: BP 155/72
[2016-08-08 19:00] VITALS: BP 140/80
[2016-08-08] MEDS ORDERED: Tubing IV Secondary IV ONE (20:25)
[2016-08-08] MEDS ORDERED: NS 550ML IV ONE (20:25)
[2016-08-08] MEDS: Miralax 17gm pkt ORAL SCH (21:22)
[2016-08-09] VITALS: BP 154/80
[2016-08-09] MEDS: Piperacillin/Tazobactam 3.375 GM in NS 110 ML IVPB SCH ×3 (01:35→18:21)
[2016-08-09 04:00] VITALS: BP 148/85
[2016-08-09] MEDS: NovoLOG Insulin Flexpen SUBQ SCH ×4 (06:46→20:52)
[2016-08-09 08:33] VITALS: BP 154/91
[2016-08-09] MEDS: Metoprolol 25mg tab ORAL SCH ×2 (08:35→20:46)
[2016-08-09] MEDS: Levemir Flexpen SUBQ SCH ×2 (08:36→18:21)
[2016-08-09] MEDS: Enoxaparin 40mg Inj SUBQ SCH (08:37)
[2016-08-09 11:06] VITALS: BP 147/83
[2016-08-09] MEDS: traMADol 50mg tab ORAL PRN (11:26)
--- NOTE | 2016-08-09 14:37 | General Progress Note ---
Assessment/Plan Status: stable Assessment/Plan 1 Gram Negative bacteremia: Definite source remains open for discussion, ? chronic appendicitis, endocarditis! 3- Appendicitis- age indeterminant, post urgent-inpatient Resection 2- Anemia 4- Thrombocytopenia 5- DM- uncontrolled 4- Gi-DVT prohpylaxia Plan: Persistent bacteremia, source! working in progress current empirically abx Once a negative blood culture is obtained , then may continue empirical abx as an outpatient at discretion of ID service TTE is Negative, Ok to followup as an out patient with close monitor and followup as an outpatient, pending ID approval Subjective ROS Limited/Unobtainable: No Constitutional: Reports: no symptoms HEENT: Reports: no symptoms Cardiovascular: Reports: no symptoms Allergies: Coded Allergies: No Known Allergies (Unverified , 07/21/16) Objective Last 24 Hour Vital Signs Date Time Temp Pulse Resp B/P Pulse Ox O2 Delivery O2 Flow Rate FiO2 08/09/16 12:25 97.9 08/09/16 11:06 97.9 64 15 147/83 96 Room Air 08/09/16 08:35 64 154/91 08/09/16 08:33 98.1 64 15 154/91 97 Room Air 08/09/16 04:00 98.2 20 148/85 98 Room Air 08/09/16 00:00 97.7 97 18 154/80 96 Room Air 08/08/16 21:22 60 140/90 08/08/16 19:00 98.3 79 20 140/80 Room Air 08/08/16 16:20 97.0 60 15 155/72 98 Room Air Intake and Output 08/08/16 08/09/16 19:00 07:00 Intake Total 1200 ml 1020.0 ml Output Total 1000 ml Balance 200 ml 1020.0 ml Intake Oral 1200 ml 800 ml IV Total 220.0 ml Output Urine Total 1000 ml # Voids 1 11 # Bowel Movements 1 Height (Feet): 5 Height (Inches): 7.00 Weight (Pounds): 160 General Appearance: no apparent distress EENT: PERRL/EOMI Neck: supple Cardiovascular: normal rate Extremities: non-tender Neurologic: oriented x 3 Nolvia Hartley MD Aug 09, 2016 14:37
[2016-08-09 16:20] VITALS: BP 151/82
--- NOTE | 2016-08-09 19:23 | Infectious Diseases Prog Note ---
Assessment/Plan Assessment/Plan A: The patient is a 60-year-old male with Fever, low grade , SP Persistent Bacteremia BlCx : EColi 2D echo : no Veg Hx of +ve Blood culture EColi source : Chronic appendicitis ?? MRI : No liver abscess probable Ch Appendicitis SP open Sx CT: uncomplicated acute appendicitis, Thrombocytopenia , SP PLAN: Continue the patient on IV Zosyn d# 12 / upon DC will change to Keflex and Flagyl to complete the course ( SP Cefepime 5 ) Monitor CBC Monitor BMP. Monitor blood culture.( repeat ) if repeat blood cx positive will need LAZARO ro SBE OK to DC on AM LAZARO can not be arranged till next wk, probability of SBE is low if cultures stay negative may DC on oral AB Rx in AM Subjective Constitutional: Denies: anorexia, chills, drenching sweats, fatigue, fever, no symptoms, other Allergies: Coded Allergies: No Known Allergies (Unverified , 07/21/16) Objective Vital Signs Last 24 Hour Vital Signs Date Time Temp Pulse Resp B/P Pulse Ox O2 Delivery O2 Flow Rate FiO2 08/09/16 17:43 97.7 08/09/16 16:20 97.7 64 14 151/82 97 Nasal Cannula 08/09/16 12:25 97.9 08/09/16 11:06 97.9 64 15 147/83 96 Room Air 08/09/16 08:35 64 154/91 08/09/16 08:33 98.1 64 15 154/91 97 Room Air 08/09/16 04:00 98.2 20 148/85 98 Room Air 08/09/16 00:00 97.7 97 18 154/80 96 Room Air 08/08/16 21:22 60 140/90 Height (Feet): 5 Height (Inches): 7.00 Weight (Pounds): 160 HEENT: atraumatic Respiratory/Chest: normal breath sounds Cardiovascular: normal rate Abdomen: soft, non tender Current Medications Medications (Trade) Dose Ordered Sig/Antonio Route PRN Reason Start Time Stop Time Status Last Admin Dose Admin Acetaminophen (Tylenol) 650 mg Q4H PRN RECTAL FEVER 07/30/16 15:00 08/29/16 14:59 Acetaminophen (Tylenol) 650 mg Q6H PRN ORAL Mild Pain (Pain Scale 1-3) 07/29/16 09:30 08/28/16 09:29 08/09/16 16:44 Bisacodyl (Dulcolax) 10 mg DAILYPRN PRN RECTAL Constipation 08/05/16 11:45 09/04/16 11:44 Clonidine HCl (Catapres) 0.1 mg Q4H PRN ORAL sbp > 160 08/03/16 14:15 09/02/16 14:14 08/03/16 18:32 Dextrose STAT PRN IV Hypoglycemia 07/31/16 01:00 08/30/16 00:59 Docusate Sodium (Colace) 250 mg DAILY PRN ORAL Constipation 08/03/16 16:00 09/02/16 15:59 08/06/16 08:55 Enoxaparin Sodium (Lovenox) 40 mg DAILY SUBQ 07/31/16 09:00 08/30/16 08:59 08/09/16 08:37 Insulin Aspart (NovoLOG) AC+HS SUBQ 07/31/16 21:00 08/30/16 20:59 08/09/16 16:46 Insulin Detemir (Levemir) 10 units BID SUBQ 08/02/16 09:00 09/01/16 08:59 08/09/16 18:21 Metoclopramide HCl (Reglan) 10 mg Q6H PRN IVP Nausea & Vomiting 07/30/16 15:00 08/29/16 14:59 Metoprolol Tartrate (Lopressor) 25 mg Q12HR ORAL 07/29/16 10:00 08/28/16 09:59 08/09/16 08:35 Ondansetron HCl (Zofran) 4 mg Q6H PRN IVP Nausea & Vomiting 07/30/16 15:00 08/29/16 14:59 07/30/16 17:56 Pantoprazole (Protonix) 40 mg DAILY ORAL 08/03/16 09:00 09/02/16 08:59 08/09/16 08:34 Piperacillin Sod/ Tazobactam Sod/ Sodium Chloride (Zosyn/Sodium Chloride) 110 ml @ 27.5 mls/hr Q8HR@0200,1100,1900 IVPB 07/31/16 19:00 08/11/16 23:59 08/09/16 18:21 Polyethylene Glycol (Miralax) 17 gm BEDTIME ORAL 08/02/16 21:00 09/01/16 20:59 08/08/16 21:22 Tramadol HCl (Ultram) 50 mg Q6H PRN ORAL Breakthrough Pain 08/05/16 12:00 08/12/16 11:59 08/09/16 11:26 NNEKA WHALEY M.D. Aug 09, 2016 19:23
[2016-08-09 20:00] VITALS: BP 142/79
[2016-08-09] MEDS: Miralax 17gm pkt ORAL SCH (20:45)
[2016-08-10] VITALS: BP 153/93
[2016-08-10] MEDS: traMADol 50mg tab ORAL PRN (01:05)
[2016-08-10] MEDS: Piperacillin/Tazobactam 3.375 GM in NS 110 ML IVPB SCH (01:53)
[2016-08-10 04:00] VITALS: BP 151/87
[2016-08-10] MEDS: NovoLOG Insulin Flexpen SUBQ SCH ×2 (06:05→13:22)
--- NOTE | 2016-08-10 07:57 | General Progress Note ---
Assessment/Plan Problem List: (1) Appendicitis, acute ICD Codes: K35.80 - Unspecified acute appendicitis SNOMED: 05697491 (2) Diabetes mellitus ICD Codes: E11.9 - Type 2 diabetes mellitus without complications SNOMED: 35717030 Assessment/Plan glycemic control is fair continue Levemir 10 units bid continue Novolog sliding scale ac / hs Subjective Allergies: Coded Allergies: No Known Allergies (Unverified , 07/21/16) All Systems: reviewed and negative except above Subjective events noted Objective Last 24 Hour Vital Signs Date Time Temp Pulse Resp B/P Pulse Ox O2 Delivery O2 Flow Rate FiO2 08/10/16 04:00 98.1 58 17 151/87 97 Room Air 08/10/16 00:00 98.5 60 19 153/93 97 Room Air 08/09/16 20:46 63 142/79 08/09/16 20:00 97.9 63 16 142/79 98 Room Air 08/09/16 17:43 97.7 08/09/16 16:20 97.7 64 14 151/82 97 Nasal Cannula 08/09/16 12:25 97.9 08/09/16 11:06 97.9 64 15 147/83 96 Room Air 08/09/16 08:35 64 154/91 08/09/16 08:33 98.1 64 15 154/91 97 Room Air Intake and Output 08/09/16 08/10/16 19:00 07:00 Intake Total 1610.0 ml 27.5 ml Output Total 1100 ml Balance 510.0 ml 27.5 ml Intake Oral 1500 ml IV Total 110.0 ml 27.5 ml Output Urine Total 1100 ml # Voids 2 Height (Feet): 5 Height (Inches): 7.00 Weight (Pounds): 160 General Appearance: no apparent distress Neck: non-tender Cardiovascular: normal peripheral pulses Respiratory/Chest: chest wall non-tender Abdomen: normal bowel sounds Objective Current Medications Medications (Trade) Dose Ordered Sig/Antonio Route PRN Reason Start Time Stop Time Status Last Admin Dose Admin Acetaminophen (Tylenol) 650 mg Q4H PRN RECTAL FEVER 07/30/16 15:00 08/29/16 14:59 Acetaminophen (Tylenol) 650 mg Q6H PRN ORAL Mild Pain (Pain Scale 1-3) 07/29/16 09:30 08/28/16 09:29 08/09/16 16:44 Bisacodyl (Dulcolax) 10 mg DAILYPRN PRN RECTAL Constipation 08/05/16 11:45 09/04/16 11:44 Clonidine HCl (Catapres) 0.1 mg Q4H PRN ORAL sbp > 160 08/03/16 14:15 09/02/16 14:14 08/03/16 18:32 Dextrose STAT PRN IV Hypoglycemia 07/31/16 01:00 08/30/16 00:59 Docusate Sodium (Colace) 250 mg DAILY PRN ORAL Constipation 08/03/16 16:00 09/02/16 15:59 08/06/16 08:55 Enoxaparin Sodium (Lovenox) 40 mg DAILY SUBQ 07/31/16 09:00 08/30/16 08:59 08/09/16 08:37 Insulin Aspart (NovoLOG) AC+HS SUBQ 07/31/16 21:00 08/30/16 20:59 08/10/16 06:05 Insulin Detemir (Levemir) 10 units BID SUBQ 08/02/16 09:00 09/01/16 08:59 08/09/16 18:21 Metoclopramide HCl (Reglan) 10 mg Q6H PRN IVP Nausea & Vomiting 07/30/16 15:00 08/29/16 14:59 Metoprolol Tartrate (Lopressor) 25 mg Q12HR ORAL 07/29/16 10:00 08/28/16 09:59 08/09/16 20:46 Ondansetron HCl (Zofran) 4 mg Q6H PRN IVP Nausea & Vomiting 07/30/16 15:00 08/29/16 14:59 07/30/16 17:56 Pantoprazole (Protonix) 40 mg DAILY ORAL 08/03/16 09:00 09/02/16 08:59 08/09/16 08:34 Piperacillin Sod/ Tazobactam Sod/ Sodium Chloride (Zosyn/Sodium Chloride) 110 ml @ 27.5 mls/hr Q8HR@0200,1100,1900 IVPB 07/31/16 19:00 08/18/16 23:59 08/10/16 01:53 Polyethylene Glycol (Miralax) 17 gm BEDTIME ORAL 08/02/16 21:00 09/01/16 20:59 08/09/16 20:45 Tramadol HCl (Ultram) 50 mg Q6H PRN ORAL Breakthrough Pain 08/05/16 12:00 08/12/16 11:59 08/10/16 01:05 Item Value Date Time Bedside Blood Glucose 150 mg/dl H 08/10/16 0630 MICHAEL SKELTON Aug 10, 2016 07:57
[2016-08-10 08:13] VITALS: BP 152/90
--- NOTE | 2016-08-10 09:31 | General Progress Note ---
Assessment/Plan Status: stable Assessment/Plan 1 Gram Negative bacteremia: Definite source remains open for discussion, ? chronic appendicitis, endocarditis! 3- Appendicitis- age indeterminant, post urgent-inpatient Resection 2- Anemia 4- Thrombocytopenia 5- DM- uncontrolled 4- Gi-DVT prohpylaxia Plan: Persistent bacteremia, source! working in progress current empirically abx Once a negative blood culture is obtained , then may continue empirical abx as an outpatient at discretion of ID service TTE is Negative, Ok to followup as an out patient with close monitor and followup as an outpatient Subjective ROS Limited/Unobtainable: No Constitutional: Reports: no symptoms HEENT: Reports: no symptoms Cardiovascular: Reports: no symptoms Respiratory: Reports: no symptoms Allergies: Coded Allergies: No Known Allergies (Unverified , 07/21/16) Objective Last 24 Hour Vital Signs Date Time Temp Pulse Resp B/P Pulse Ox O2 Delivery O2 Flow Rate FiO2 08/10/16 08:13 97.2 64 22 152/90 95 Room Air 08/10/16 04:00 98.1 58 17 151/87 97 Room Air 08/10/16 00:00 98.5 60 19 153/93 97 Room Air 08/09/16 20:46 63 142/79 08/09/16 20:00 97.9 63 16 142/79 98 Room Air 08/09/16 17:43 97.7 08/09/16 16:20 97.7 64 14 151/82 97 Nasal Cannula 08/09/16 12:25 97.9 08/09/16 11:06 97.9 64 15 147/83 96 Room Air Intake and Output 08/09/16 08/10/16 19:00 07:00 Intake Total 1610.0 ml 27.5 ml Output Total 1100 ml Balance 510.0 ml 27.5 ml Intake Oral 1500 ml IV Total 110.0 ml 27.5 ml Output Urine Total 1100 ml # Voids 2 Height (Feet): 5 Height (Inches): 7.00 Weight (Pounds): 160 General Appearance: WD/WN EENT: PERRL/EOMI Neck: supple Cardiovascular: normal rate Respiratory/Chest: lungs clear Extremities: non-tender Neurologic: grinder lap II-XII grossly normal Nolvia Hartley MD Aug 10, 2016 09:31
[2016-08-10] MEDS: Metoprolol 25mg tab ORAL SCH (09:59)
[2016-08-10] MEDS: Enoxaparin 40mg Inj SUBQ SCH (10:00)
[2016-08-10] MEDS: Levemir Flexpen SUBQ SCH (10:01)
[2016-08-10] MEDS ORDERED: Tubing IV Secondary IV ONE (10:05)
[2016-08-10] MEDS ORDERED: METRONIDAZOLE500 MG ORAL (11:11)
[2016-08-10 12:15] VITALS: BP 156/88
--- NOTE | 2016-08-12 10:29 | Discharge Summary ---
Discharge Summary Hospital Course Date of Admission Jul 28, 2016 at 17:40 Date of Discharge Aug 10, 2016 at 14:45 Admitting Diagnosis sepsis, hyperglycemia HPI Paco Finnegan is a 60 year old male who was admitted on Jul 28, 2016 at 17:40 for Sepsis,Hyperglycemia Hospital Course dc summary #[id number] Discharge Medications Continued Medications: Cephalexin* (Keflex*) 500 Mg Capsule 500 MG ORAL EVERY 6 HOURS for 10 Days, CAP Insulin Detemir (Levemir Flexpen) 100 Unit/1 Ml Insuln.pen 10 SUBQ BID, #300 UNITS 0 Refills Metoprolol Tartrate* (Metoprolol Tartrate*) 25 Mg Tablet 25 MG ORAL EVERY 12 HOURS, #20 TAB Metronidazole* (Flagyl*) 500 Mg Tablet 500 MG ORAL EVERY 6 HOURS, #28 TAB No Known Medications* (NKM - No Known Medications*) . 0 ., 0 Refills Discharge Condition Upon Discharge: stable Discharge Disposition Patient was discharged to Home (01) Discharge Diagnoses: Discharge Instructions Discharge Instructions Special Instructions I have been assigned to complete a D/C Summary on this account. I was not involved in the patient management Radha Montesinos NP (Vanchtein) Aug 12, 2016 10:29
--- NOTE | 2016-08-13 00:17 | Discharge Summary 2 SIG ---
DATE OF ADMISSION: 07/28/2016 DATE OF DISCHARGE: 08/10/2016 REASON FOR ADMISSION: 60-year-old male came to emergency room complaining of generalized weakness and fever. The patient with history of diabetes, which was recently diagnosed. The patient denied nausea, vomiting, and diarrhea. Workup in the emergency room revealed low-grade fever of 100. No leukocytosis, stable blood pressure and heart rate. EKG revealed normal sinus rhythm. No acute ischemic changes. Troponin negative. Pulse oximetry was stable on room air. The patient was given IV fluids and IV antibiotics in the ER prior to disposition to the floor. The patient admitted for further management. ADMITTING DIAGNOSES: 1. Possible sepsis. 2. Diabetes mellitus. HOSPITAL STAY: The patient admitted. The patient was started on empiric antibiotics. ID consult was requested. Influenza screen was negative. Chest x-ray was negative. Blood culture revealed E. coli, initially unclear source. The patient undergone CT of the abdomen and pelvis, which revealed uncomplicated acute appendicitis and fatty liver. Surgery consult was requested. The patient undergone surgery on July 30, 2016. Initially attempted laparoscopic appendectomy, but surgery was later converted to open appendectomy. Surgeon closely followed the patient. The patient was on antibiotics. Blood cultures were monitored. There was persistent bacteremia with positive blood culture on July 29, August 01 and August 03. The last blood culture on August 05, 2016 was negative. 2-D echo revealed no evidence of vegetation. LAZARO was unable to be arranged until the next week. However, according to the ID doctor, probability of bacterial endocarditis was low, given the last culture being negative. ID doctor cleared the patient for discharge on oral antibiotics. CT abdomen did not demonstrated liver abscess. DIANNA, ANCA screen negative. Blood sugar was managed with Levemir and sliding scale of insulin as needed. Hemoglobin A1c - 12, clearly not at goal. Endocrinology consult was requested , who optimized anti-glycemic medication regimen. DVT and GI prophylaxes provided. Blood pressure was managed with beta-filiberto, and was stable. The patient with evidence of anemia. However, hemoglobin and hematocrit stayed at the baseline, no trend down. Fever resolved. No leukocytosis. Last blood culture negative. ID cleared for discharge on oral antibiotic Keflex for additional 10 days. DISCHARGE DIAGNOSES: 1. Persistent bacteremia (E. coli). 2. Appendicitis. 3. Status post open appendectomy 07/30/2016. 4. Diabetes mellitus, poorly controlled. 5. Anemia. 6. Hypertension. DISCHARGE MEDICATIONS: See medication reconciliation list. DISCHARGE INSTRUCTIONS: The patient to follow up with the primary medical doctor and surgeon. Patient to complete antibiotics as specified by ID doctor. Recommended close follow up with primary doctor for optimization of antigenemic medication and bringing HgA1c under goal,. Nolvia Hartley M.D. I have been assigned to dictate discharge summary on this account and I was not involved in the patient's management. Radha Montseinos (Vanchtein) N.PBeny DR: IAN JOB#: [id number] CC: CHERELLE
== END 2016-08-10 14:45 | disposition home or self-care (01) | DRG 710 ==
LOC: EDBD 14:42 → EMR 16:02 → 4E 17:40 → EDBEDREQ 22:32
DX: A41.51 Sepsis due to Escherichia coli [E. coli] (principal); D69.6 Thrombocytopenia, unspecified; E11.65 Type 2 diabetes mellitus with hyperglycemia; R65.20 Severe sepsis without septic shock; K36 Other appendicitis; D64.9 Anemia, unspecified; I10 Essential (primary) hypertension; Z53.31 Laparoscopic surgical procedure converted to open procedure; E44.1 Mild protein-calorie malnutrition; K66.0 Peritoneal adhesions (postprocedural) (postinfection)
CPT/HCPCS: 36415; 71010; 74177; 80048; 80053; 81003; 82550; 82553; 82962; 83036; 83605; 84484; 85025; 85610; 85651; 85730; 86021; 86039; 86140; 86710; 87040; 87181; 93005; 93306; 94003; 94150; J1815; J2250; J2405; J2710; S5561